=== PATIENT | female | born 1975 | race Caucasian/White ===

== ENCOUNTER 2016-10-28 09:14 | Day surgery (SDC) | payer OTHER ==
[~2016-10-28] VITALS: Ht 177.8 cm; Wt 142.3 kg
[2016-10-28] VITALS (14 sets, daily range): BP systolic 98–150; BP diastolic 50–77; PULSE 83–120; RESP 14–21; O2SAT 90–100
[~2016-10-28 09:14] MED LIST: ATOR20TA PO; CeFAZolin Inj 3 GM in Dextrose 5% Minibag Plus 50 ML IV SCH; CeFAZolin Inj 3 GM in IV Premix 1 EACH IV ONE; GABA-502 PO; GLIM2TAB2 PO; INSU100I13 SUBQ; LISI-571 PO; METF500T4 PO; METO25TA6 PO; MULT-1018 PO; NORT25CA PO; ONDA-54 PO; OXYC1TAB24 PO; TUMERIC PO
[2016-10-28] MEDS ORDERED: Ondansetron 2 mg/mL 2 mL Inj ONE (09:15)
[2016-10-28] MEDS ORDERED: Succinylcholine Chloride 20 mg/mL 5 mL Inj ONE (09:15)
[2016-10-28] MEDS ORDERED: MetoCLOpramide 5 mg/mL 2 mL Inj ONE (09:15)
[2016-10-28] MEDS ORDERED: fentaNYL-PF 50 mCg/mL 2 mL Inj ONE (09:15)
[2016-10-28] MEDS ORDERED: Propofol 10,000 mCg/mL 20 mL Inj ONE (09:15)
[2016-10-28] MEDS: Lactated Ringer's 1,000 ML IV SCH ×2 (09:51→11:14)
[2016-10-28] MEDS ORDERED: IBUP-1827 PO (10:00)
[2016-10-28] MEDS ORDERED: Insulin LISPRO 300 Unit/3 mL Inj ONE (11:03)
[2016-10-28] MEDS ORDERED: Insulin LISPRO 300 Unit/3 mL Inj SUBQ ONE (11:15)
[2016-10-28] MEDS ORDERED: Lactated Ringer's 500 ML IV PRN ×2 (11:35)
[2016-10-28] MEDS ORDERED: Dexamethasone 4 mg/mL Inj IVPUSH PRN ×2 (11:35)
[2016-10-28] MEDS ORDERED: HYDROmorphone 1 mg/mL Inj IVPUSH PRN ×2 (11:35)
[2016-10-28] MEDS ORDERED: Ondansetron 2 mg/mL 2 mL Inj IVPUSH PRN ×2 (11:35)
[2016-10-28] MEDS ORDERED: Phenylephrine 10,000 mCg/mL Inj IVPUSH PRN ×2 (11:35)
[2016-10-28] MEDS ORDERED: fentaNYL-PF 50 mCg/mL 2 mL Inj IVPUSH PRN ×2 (11:35)
[2016-10-28] MEDS ORDERED: MetoCLOpramide 5 mg/mL 2 mL Inj IVPUSH PRN ×2 (11:35)
[2016-10-28] MEDS ORDERED: Lactated Ringer's 1,000 ML IV SCH ×2 (11:35)
[2016-10-28] MEDS ORDERED: EPHEDrine Sulfate 50 mg/mL Inj IVPUSH PRN ×2 (11:35)
[2016-10-28] MEDS ORDERED: Bupivacaine-MPF 0.5% W/EPI 30 mL Inj INFILTRATE ONE (11:51)
[2016-10-28] MEDS ORDERED: HepLOK Flush 100 unit/mL 5 mL Inj IVFLUSH ONE (11:52)
[2016-10-28] MEDS ORDERED: HYDROcodone-APAP 5-325 mg Tablet PO PRN (12:15)
--- NOTE | 2016-10-28 12:17 | PCM.DISURG ---
Surgical Discharge Instruction Date of Service Oct 28, 2016 Dates of Hospitalization Date of Hospital Admission Providers Admitting Physician: Primary Care Physician: Neil Muniz Attending Physician: Jabari Manuel MD Discharge Diagnosis Discharge Diagnosis Right breast cancer Diet Discharge Diet: No restrictions Activity Discharge Activity-General: No restrictions Dressing and Incisional Care Dressing Care: Allow Steri Stripes to fall off, Remove outer dressing after 24 hrs Hygiene: May shower after (24 hours) Follow Up Plan Follow Up Plan With Dr. Jay as directed Call your provider for: Fever (over 101.5), Discharge @ incision, pus discharge Jabari Manuel MD Oct 28, 2016 12:17
--- NOTE | 2016-10-28 12:23 | PCM.SURGOP ---
Surgical Operative Report Date of Service: Oct 28, 2016 Pre Operative Diagnosis Metastatic right breast cancer Post Operative Diagnosis Same Procedure: Tunneled left subclavian central venous catheter with power port, intraoperative fluoroscopy with interpretation Surgeon and Supervisor Sunglasses: Surgeon: Jabari Manuel MD Assistants: Kentrell Valiente MS3 Indication for Procedure 41-year-old woman who was diagnosed with locally advanced right breast cancer with bulky axillary lymphadenopathy last year. She was treated with bilateral mastectomy and right axillary lymph node dissection, adjuvant chemotherapy, adjuvant chest wall radiation. Her prior Port-A-Cath was removed at the end of her treatment. In follow-up, she was then found to have evidence of recurrent metastatic disease with mediastinal and retroperitoneal lymphadenopathy. Plans were made to treat her with palliative chemotherapy. After discussion of risks and benefits, she agreed to proceed with Port-A-Cath placement. Findings: The catheter tip was positioned at the cavoatrial junction, confirmed with fluoroscopy. Procedure Details After smooth induction of general anesthesia, the patient was positioned in the supine position with only the left arm tucked because of her morbid obesity. She was prepped and draped in wide sterile fashion. A procedural pause was performed according to the SCOAP checklist, and all were found to be in agreement. The patient was placed in Trendelenburg position. The left subclavian vein was accessed with a finder needle. Cannulation of the vein was somewhat difficult because of her prior left subclavian line placement, and her morbid obesity, so it took approximately 5 or 6 passes of the needle. The 0.035 inch wire was passed into the vena cava. It was confirmed with fluoroscopy. Her prior left upper chest wall incision was reopened sharply, and a subcutaneous pocket was created on the left upper chest wall using electrocautery. The port reservoir was secured to the fascia with interrupted 3-0 Vicryl sutures. The catheter was connected to the tunneler, and tunneled under the subcutaneous tissue to the venipuncture site. The introducer sheath and dilator was passed over the wire under fluoroscopic guidance. The catheter was then passed through the tear -away sheath into the vena cava. The sheath was removed. The catheter was then pulled back under fluoroscopic guidance until the tip was positioned at the cavoatrial junction. The catheter was cut to size, and connected to the port reservoir. The port was accessed using a Ashton needle, which aspirated and flushed easily. The port was then flushed with the final heparin flush, consisting of 100 units per mL, a total of 4 mL. A final fluoroscopic image confirmed that the port was in good position with no kinks, and there was no evidence of pneumothorax. The incision was closed with a running 4-0 Monocryl subcuticular stitch. Steri-Strips and sterile dressings were applied. At the end of the case all needle and sponge counts were correct 2. The patient was awakened from anesthesia without difficulty, and taken to the recovery room in satisfactory condition, having tolerated the procedure well. Complications There were no periprocedural complications identified. Surgical Specimen Removed: No Specimen sent to Pathology: Not applicable Anesthetic Plan: GA Grafts, Implants: Implants-See Implant Record Output, Estimated Blood Loss: 10 Blood Administration during pascual: No Drains: None Catheters: None copies to: Caden Jay MD; Neil Muniz Joshua D MD Oct 28, 2016 12:23
--- NOTE | 2016-10-28 12:26 | PCM.HPANE ---
Patient Data Surgeon Admitting Provider: Attending Provider:Jabari Manuel MD Primary Care Physician:Neil Muniz Other Provider:Prosper Corbett Anesthesia Reason for Visit Right Breast Cancer Ht/WT & BMI Height (Feet): 5 Height (Inches): 9 Weight (Kilograms): 142.600 Body Mass Index 46.00 Allergies Coded Allergies: No Known Allergies (Verified , 12/10/15) Past Anesthesia History Anesthesia History: Denies:: Abnormal Airway, Anesthesia Reactions (takes a long time to wake up), Difficult Intubation, Fam Anesthesia Reaction, Malignant Hyperthermia Diabetes History Hx Diabetes?: Yes (last Hgb A1C "awhile ago" cannot recall) Type of Diabetes: Type II Glycemic Control: Insulin & Oral Medication MRSA MRSA: No Medications Hypertension Medication: Yes Home Meds Incl Beta Taya: No Active Scripts oxyCODONE-Acetaminophen 5-325 mg 1 Each Tablet1-2 Tab PO Q6H PRN For Pain #20 TABLET Prov:Leighann Andrea MD 07/19/16 Reported Medications Ibuprofen 600 Mg [id number] Mg PO PRN #60 10/28/16 Metoprolol Tartrate 25 Mg Tkgums19.5 Mg PO BID 30 Days Ref 0 10/16/16 Ondansetron 8 Mg Tablet8 Mg PO BID PRN For Nausea/Vomiting #60 TABLET Ref 1 09/25/16 Insulin Glargine (Lantus U100 Solostar Insulin Pen)100 Unit/1 Ml Insuln.pen42 Unit SUBQ DAILY #2 PENINJ Ref 2 09/25/16 Atorvastatin (Lipitor)20 Mg Lxaxlz75 Mg PO DAILY Ref 0 12/11/15 Multivitamin (Multi Vitamin Daily)1 Each Tablet1 Each PO DAILY 30 Days Ref 0 11/02/15 Nortriptyline 25 Mg Cdnrpom22 Mg PO HS 10/26/15 Glimepiride 2 Mg Tablet2 Mg PO HS Ref 0 10/26/15 Lisinopril 5 Mg Tablet5 Mg PO HS Ref 0 10/26/15 Gabapentin 300 Mg Dgbauea673 Mg PO HS Ref 0 10/12/15 Metformin 500 Mg Tablet1,000 Mg PO BID Ref 0 08/07/15 Discontinued Reported Medications [Tumeric] No Conflict Check Po Ud 12/10/15 History History of ENT Problems?: Yes HEENT History: Denies:: Abnormal Airway Cataracts Difficult Intubation Dysphagia Glaucoma Hearing Problem Sinus Problem TMJ Teeth Condition: Missing Teeth Hx of Heart Problems?: Yes Cardiovascular History: Positive for:: Hypertension Denies:: AICD Atrial Fibrillation Chest Pain Congestive Heart Failure Coronary Artery Disease Edema Heart Murmur Irregular Heartbeat Pacemaker Peripheral Vascular Hx of Respiratory Problem?: No Respiratory History: Positive for:: Cough Denies:: Asthma COPD Emphysema Oxygen Administration Pneumonia Pulmonary Embolism Tuberculosis Use of C-PAP Machine (prior use CPAP- no longer uses, needs new sleep study) Hx Neurologic Problems?: No Neurological History: Denies:: CVA Dementia Dizziness Headaches Multiple Sclerosis Parkinson's Disease Seizures TIA Hx of GI Problems?: Yes Gastrointestinal History: Positive for:: Gall Bladder Disease (removed) Denies:: Diverticulitis Gastrointestinal Bleeding Heartburn Hepatitis Hiatal Hernia Rectal Bleeding Hx of Problems?: No Genitourinary History: Denies:: Kidney Stones Urinary Tract Infection Female Hx: Positive for:: Pelvic Inflammatory (HX TUBO-OVARIAN ABCESS) Problems with Breasts? (right breast ca, bilateral mastectomy-lymphadenopathy current problem) Denies:: Currently Endometriosis Skin History: Denies:: History Skin Disorders? Pressure Ulcers Hx Musculoskeletal Problems?: Yes Musculoskeletal History: Positive for:: Musculoskeletal Trauma (frozen shoulder right) Denies:: Back Injury Degenerative Joint Fibromyalgia Joint Replacement Myasthenia Gravis Osteoarthritis Rheumatoid Arthritis Systemic Lupus Hx of Psycho/Social Problems?: No Psycho Social History: Denies:: Anxiety Bipolar Disorder Hx Depression Suicide Attempt Hx Surgeries?: Yes (IUD REMOVAL,SUZI,HERNIA RPR,EXP LAP-ABCESS,LT BREAST LUMPECTOMY,RT BREAST ) Hx Any Other Health Problems?: Yes Other History: Positive for:: Cancer (RT BREAST) Denies:: Endocrine Disease Hospitalization Thyroid Disease History Blood Transfusions: Positive for:: Accept Blood Products? Blood Transfusions Denies:: Blood Transfuse Reaction Hx Diabetes: Yes (last Hgb A1C "awhile ago" cannot recall) Hx Alcohol Use: NoHx Substance Use: No (past use of oil during chemo- not current ) Smoking Status: Former Smoker Unknown if Ever Smoker Have You Smoked inLast 12 mo: No Stop/Bang P-Blood Pressure: treated: No B- Body Mass Index > 35 kg/m2: Yes A- Age over 50: No N- Neck Large Circumference: Yes G- Gender Male: No Risk Assessment Category Category 1A: Patient has history of documented sleep apnea, and HAS NOT received any narcotic, sedative or anesthesia administration during this stay. Category 1B: Patient has history of documented sleep apnea, and HAS received any narcotic , sedative or anesthesia administration during this stay Category 2: Patient has SUSPECTED Obstructive Sleep Apnea, and HAS received any narcotic , sedative or anesthesia administration during this stay. Category 3: Patient has SUSPECTED Obstructive Sleep Apnea and HAS NOT received narcotic, sedative or anesthesia administration during this stay. Category 4: Outpatient in Procedural Areas with known sleep apnea or who screen positive for High Risk via the STOP/BANG questionnaire. Exam Exam General Appearance: Alert, Oriented X3, Cooperative, No Acute Distress HEENT/AIRWAY: MP 2 Lungs: Clear to Auscultation Heart: Exam Unremarkable Plan Impression Patient chart reviewed, patient interviewed and anesthestic plan with risks, benefits, and alternatives discussed, and informed consent obtained. NPO Status: MN ASA Physical Status: ASA3 Severe Disease (MORBID OBESITY, NOEMI, IDDM, HTN) Anesthetic Plan: GA Bene/Risks/Altern/Consents: Yes HP Complete Prior to Induction: Yes Foreign Gutierrez MD Oct 28, 2016 07:47
--- NOTE | 2016-10-28 12:26 | PCM.ANEP1 ---
Post Anesthesia Phase 1 PACU Phase 1 Assessment Date of Service: Oct 28, 2016 Vital Signs Vital Signs Date Time Temp Pulse Resp B/P Pulse Ox O2 Delivery O2 Flow Rate FiO2 10/28/16 10:55 93 10/28/16 10:02 120 10/28/16 09:53 35.3 117 20 125/60 96 Room Air Anesthetic Administered: GA Level of Alertness: Sleepy, easy to arouse SALAZAR's with Equal Strength: Yes Pain: No Nausea or Vomiting: No Oxygen Delivery: Simple Mask Lungs: Clear to Auscultation Dermatome Level: Full Sensation Foreign Gutierrez MD Oct 28, 2016 12:26
--- NOTE | 2016-10-28 13:11 | DRSVH ---
PROCEDURE: X-RAY CHEST ONE VIEW, PORTABLE ([id number]) INDICATIONS: evaluate for pneumothorax TECHNIQUE: One view of the chest was acquired. COMPARISON: [facility], CT, CT CHEST ABD PELVIS W CON, 10/23/2016, 10:58. FINDINGS: Surgical changes and devices: Left subclavian chest port present tip projected over the lower SVC. B ilateral breast surgical clips. Lungs and pleura: No pleural effusions or pneumothorax. Lungs are clear. Mediastinum: Mediastinal contours appear normal. Heart size is normal. Bones and chest wall: No suspicious bony lesions. Overlying soft tissues appear unremarkable. IMPRESSION: Placement of left subclavian chest port without immediate. Complication. Dictated by: Roland Gomez RRA Interpreted: Mariam Mahajan MD on 10/28/2016 at 13:10 Transcribed by: MARIE on 10/28/2016 at 13:11 Approved by: Mariam Mahajan MD, PhD on 10/28/2016 at 17:04
--- NOTE | 2016-10-28 13:23 | PCM.ANEP2 ---
Post Anesthesia Evaluation ASA/CMS Post Anesthesia VS in Patient's Normal Range?: Yes Resp Stable; Airway Patent?: Yes CV Function & Hydration Stable: Yes Mental Status Recovered?: Yes Pain control Satisfactory?: Yes N/V Control Satisfactory?: Yes Foreign Gutierrez MD Oct 28, 2016 13:23
== END 2016-10-28 23:59 | disposition home or self-care (01) ==
LOC: SAS 09:14
PROVIDERS: ATTEND Student in an Organized Health Care Education/Training Program
DX: C50.911 Malignant neoplasm of unspecified site of right female breast (principal); E11.9 Type 2 diabetes mellitus without complications; I10 Essential (primary) hypertension; E78.5 Hyperlipidemia, unspecified; F41.9 Anxiety disorder, unspecified; E66.9 Obesity, unspecified; Z68.42 Body mass index [BMI] 45.0-49.9, adult; Z87.891 Personal history of nicotine dependence; Z79.4 Long term (current) use of insulin; Z79.84 Long term (current) use of oral hypoglycemic drugs
CPT/HCPCS: 36561; 71010; 77001; C1788; J0330; J0690; J1642; J1815; J2405; J2765; J7120

== ENCOUNTER 2017-01-07 10:22 | Inpatient (IN) | payer OTHER ==
[2017-01-07] VITALS (13 sets, daily range): BP systolic 110–139; BP diastolic 51–75; PULSE 95–110; RESP 15–22; O2SAT 94–97
[~2017-01-07] VITALS: Ht 177.8 cm; Wt 133.4 kg
[~2017-01-07 10:22] MED LIST changes: -CeFAZolin Inj 3 GM in Dextrose 5% Minibag Plus 50 ML IV SCH; -CeFAZolin Inj 3 GM in IV Premix 1 EACH IV ONE; -GLIM2TAB2 PO; +IBUP-1827 PO; -LISI-571 PO; -TUMERIC PO
[2017-01-07] MEDS ORDERED: 0.9% Sodium Chloride 1,000 ML IV ONE (10:33)
--- NOTE | 2017-01-07 10:33 | ED.REPORT ---
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 She has had 3 episodes of vomiting today. Associated symptoms include weakness, nausea, and fatigue. Her last chemotherapy was 2-3 weeks ago and she received a transfusion 1 week ago. She denies hematuria and hematochezia. Nursing Notes Stated Complaint: BLACK VOMIT Chief Complaint: General Complaint Nursing Notes Reviewed: Yes Allergies: Coded Allergies: No Known Allergies (Verified , 01/07/17) Scheduled Atorvastatin Calcium (Atorvastatin Calcium) 10 Mg Tablet 10 MG PO HS Gabapentin (Gabapentin) 300 Mg Capsule 900 MG PO HS Insulin Glargine (Lantus U100 Solostar Insulin Pen) 100 Unit/1 Ml Insuln.pen 42 UNIT SUBQ HS Levothyroxine (Levothyroxine) 75 Mcg Tablet 75 MCG PO QAM Metformin (Metformin) 500 Mg Tablet 1,000 MG PO BID Methadone (Methadone) 5 Mg Tablet 5 MG PO BID Metoprolol Tartrate (Metoprolol Tartrate) 25 Mg Tablet 25 MG PO BID Nortriptyline (Nortriptyline) 25 Mg Capsule 25 MG PO HS Scheduled PRN Ondansetron (Ondansetron) 8 Mg Tablet 8 MG PO BID PRN PRN For Nausea/Vomiting oxyCODONE-Acetaminophen 5-325 mg (oxyCODONE-Acetaminophen 5-325 mg) 1 Each Tablet 1-2 TAB PO Q6H PRN PRN For Pain General Time Seen by MD: 10:33 Chief Complaint Vomiting Hx Obtained From: Patient Arrived By: Walk-in Sudden in Onset?: Yes Onset Occurred: 4 days ago Symptom Duration: Since onset Location: : Abdomen Radiation: : Does not radiate Recent Healthcare: Recent doctor visit Past Medical History Past Medical History Hx Breast cancer s/p chemo Hx Bladder infection Prolapsed uterus Chronic tachycardia T2DM Past Surgical History None reported Smoking History Former Smoker, Unknown if Ever Smoker Ambulatory Status Independent Review of Systems Full Review of Systems Constitutional: Reports: Fatigue, Weakness - generalized GI: Reports: Hematemesis, Nausea, Vomiting, Denies: Hematochezia Female: Denies: Hematuria Complete sys rev & neg: except as marked. Physical Exam Vital Signs Vital Signs Date Time Temp Pulse Resp B/P Pulse Ox O2 Delivery O2 Flow Rate FiO2 01/07/17 14:00 101 20 120/57 95 Room Air 01/07/17 13:00 97 16 116/51 95 Room Air 01/07/17 12:00 95 15 139/54 95 Room Air 01/07/17 10:25 35.5 96 16 110/71 97 Initial VS: Reviewed Head / Eyes: Atraumatic, Normocephalic, PERRL ENT: Mucous membranes moist Neck: Supple Cardiovascular: Regular rate & rhythm, Heart sounds normal Abdomen / GI: Soft, Non-tender, No guarding, No rebound, No distention Extremities: Vascular intact, Neuro intact, No swelling, No tenderness Neurologic: Alert, Oriented Psychiatric: Mood/affect normal, Behavior normal General/Constitutional: Awake, Alert, Cooperative, Not toxic appearing Appearance / Presentation: Positive: Pale Lower Extremity / Pelvis / MS: Full range of motion trace edema Interpretation & Diagnostics Lab Results Interpretation Test 01/07/17 11:30 Prothrombin Time 12.0sec (8.1-12.5) Prothromb Time International Ratio 1.12ratio Lactic Acid Level 1.6mmol/L (0.4-2.0) Magnesium Level 1.6mg/dL (1.6-2.6) Procalcitonin 1.03ng/mL (0.00-0.08) ECG Interpretation Time: 10:57 Interpreted by: ED physician Rhythm / Conduction: Tachycardia (100) X-Ray Chest Interpretation Chest Xray Interpretation: IMPRESSION: 1. Bibasilar airspace disease (right slightly greater than left) is most suspicious for developing pneumonia. 2. No large effusion. 3. Unchanged Port-A-Cath central line. Dictated by: Won Thornton M.D. on 01/07/2017 at 10:28 Approved by: Won Thornton M.D. on 01/07/2017 at 10:31 View: Portable Interpretation / Wet Read by: Interpret - Radiologist Re-Eval/Medical Decision Time of Eval: 12:53 Patient Status: Mild relief Re-Evaluation/Progress Note: Pt rechecked. Her nausea has dissipated and she has not vomitted again. Informed pt of plan to start on antibiotics and admit to the hospital. Pt understands and agrees with plan. All questions addressed. Consultation #1: Referral / Consult Name: Zackary Braga MD Consulted With: Hospitalist Call Returned at: 13:13 Early Learning Teacher: Agrees with eval, Agrees with plan Note: Case discussed. Dr. Braga accepts admit. Consultation #2: Referral / Consult Name: Marisol Kulwant Fitch DO Call Returned at: 13:17 Note: Dr. Damon, oncology, recommends that patient be transfered to . Possibility she may have developed acute leukemia. Later, he calls back after having looked at the peripheral smear and thinks that there is less evidence now of acute leukemia and believes that since has no inpatient beds, he can reasonably keep the patient here and proceed with workup while patient hospitalized at our facility. Consultation #3: Referral / Consult Name: Willie Walsh MD Call Returned at: 14:17 Note: Case discussed. Counseled Regarding: Diagnosis, Lab results, Need for admission Discharge & Departure Primary Impression: Breast cancer, right Breast location: unspecified site of breast Patient gender: female Qualified Code: C50.911 - Malignant neoplasm of unspecified site of right female breast Additional Impressions: Upper GI bleed Severe anemia Leukocytosis Leukocytosis type: unspecified Qualified Code: D72.829 - Elevated white blood cell count, unspecified Disposition: ADMITTED TO HOSPITAL Discharge Condition All VS Reviewed: Yes Condition: Stable Referrals: NOPCP (PCP) Scribe Attestation Portion of this note were transcribed by Oriana Rodriguez. I, Dr. Isaacs, personally performed the history, physical exam, and medical decision-making: I reviewed and confirmed the accuracy for the information in the transcribed note. Signed by: leann Song, 01/27/17 Girish Brewster MD Jan 07, 2017 10:33 Oriana Rodriguez Jan 07, 2017 10:42
[2017-01-07] MEDS ORDERED: Pantoprazole Inj 80 MG, Pharmacy To Mix 1 EA in 0.9% Sodium Chloride 80 ML IV ONE ×2 (10:55)
--- NOTE | 2017-01-07 11:32 | DRSVH ---
PROCEDURE: X-RAY CHEST ONE VIEW, PORTABLE ([id number]) INDICATIONS: sepsis TECHNIQUE: One view of the chest was acquired. COMPARISON: [facility], CR, XR CHEST 1VW (PORTABLE), 10/28/2016, 12:14. FINDINGS: Surgical changes and devices: There is a left-sided Port-A-Cath central line identified with the tip overlying the low superior vena cava, not significantly changed. Surgical clips are seen overlying t he right axilla and the left chest. Lungs and pleura: There are low lung volumes. Mild bibasilar airspace disease is identified, which i s less prominent on the current study compared to 10/28/16. The degree of airspace disease is slightl y more prominent at the right lung base. There is mild elevation of the right diaphragm. No effusio n or pneumothorax is evident. Mediastinum: Mediastinal contours appear normal. Heart size is normal. Bones and chest wall: No suspicious bony lesions. Overlying soft tissues appear unremarkable. IMPRESSION: 1. Bibasilar airspace disease (right slightly greater than left) is most suspicious for developing p neumonia. 2. No large effusion. 3. Unchanged Port-A-Cath central line. Dictated by: Won Thornton M.D. on 01/07/2017 at 10:28 Approved by: Won Thornton M.D. on 01/07/2017 at 10:31
[2017-01-07 12:02] LABS: INR 1.12 ratio
[2017-01-07 12:16] LABS: Magnesium 1.6 mg/dL (1.6-2.6)
[2017-01-07] MEDS ORDERED: Doxycycline Inj 100 MG in Dextrose 5% 100 ML IV ONE (13:15)
[2017-01-07] MEDS ORDERED: Piperacillin-Tazo 3.375 Gm Inj 3.375 GM in Dextrose 5% Minibag Plus 50 ML IV ONE (13:15)
[2017-01-07] MEDS ORDERED: Tobramycin per Pharmacist XX ONE (13:15)
[2017-01-07] MEDS ORDERED: Vancomycin Dose per Pharmacist XX ONE (13:15)
[2017-01-07] MEDS ORDERED: Vancomycin Inj 2,250 MG in 0.9% Sodium Chloride 500 ML IV ONE (14:05)
[2017-01-07] MEDS ORDERED: METH5TAB3 PO (14:19)
[2017-01-07] MEDS ORDERED: ATOR10TA66 PO (14:19)
[2017-01-07] MEDS ORDERED: LEVO75TA4 PO (14:19)
[2017-01-07] MEDS ORDERED: Pantoprazole Inj 80 MG in 0.9% Sodium Chloride 80 ML IV SCH (15:25)
--- NOTE | 2017-01-07 15:42 | PCM.CHPMED ---
Subjective Date of Service: Jan 07, 2017 Primary Physician: Admitting Physician: Zackary Braga MD Primary Care Physician: Francisco Javier Attending Physician: Zackary Braga MD Admit Status: From the Emergency Department, Non-Telemetry Chief Complaint: Chief Complaint: Black vomit, nausea History of Present Illness: Camelia Barahona is an unfortunate 41 year-old female with metastatic triple negative breast cancer with diffuse osseous metastasis, persistent severe anemia , thrombocytopenia, and insulin-using diabetes type 2 who was [facility] due to hematemesis and vomiting increasing in severity onset 4 days ago. Today, patient had a follow-up lab draw at the oncology office and was found to have marked leukocytosis of 65.7, hemoglobin 6.6, and platelet count at 22. Her WBC on 12/31 was normal at 4.8. Patient admits to generalized weakness, malaise, dizziness, poor appetite, nausea, and vomiting. She reports "black vomits" that has been ongoing for 4 days and had 3 episodes of vomiting today. Patient states that she has been using Zofran but it no longer works for her. She denies hematuria, hematochezia, melena, abdominal pain, CP, or SOB. She takes Methadone and Percocet on a regular basis and it seems to control her cancer-related pain really well. She denies any fever or chills, but admits that she has been feeling sweaty and clammy. She also denies cough, dysuria, constipation, or diarrhea. Last BM was this morning and it was normal. Her last chemotherapy was 2-3 weeks ago and she received 2 units of PRBC 1 week ago when her hemoglobin was 5.9. GI service was consulted due to concern of upper GI bleed. Of note, in 10/2016, a bone marrow biopsy was attempted to differentiate between chemotherapy-induced myelosuppression versus metastatic carcinoma to the bone marrow but the procedure was unsuccessful. Even with holding the chemotherapy, her platelet count did not improve and has progressively decreased. Thus, it was thought that her thrombocytopenia is likely due to her metastatic breast cancer to the bone. Otherwise, patient denies any history of GI bleed. She has never had neither upper or lower endoscopy in the past. No family history of cancer other than the patient. Review of Systems: Constitutional: Reports: Malaise, Sweats, Weakness, Denies: Chills, Fever Neck: Denies: Mass, Pain, Swelling Cardiovascular: Denies: Chest Pain, Edema, Irregular Heart Rate, Palpitations, Rapid Heart Rate, SOB on Exertion Respiratory: Denies: Cough, SOB with Exertion, Shortness of Breath, Sputum, Wheezing Gastrointestinal: Reports: Change in Appetite, Nausea, Other (Hematemesis), Vomiting, Denies: Abdominal Pain, Black tarry stools, Blood in stool (red), Constipation, Diarrhea Genitourinary: Reports: No burning or pain with urination, Denies: Change in Frequency, Decrease Urinary Output, Dysuria, Hematuria Skin: Reports: Bruising, Denies: Blisters, Dry or Flakiness, Itching, Lesions, Rash Neurological: Reports: Dizziness, Denies: Change in Speech, Confusion, Localized Weakness, Numbness, Somnolence Hematologic: Reports: Bruising PMH Past Medical History Metastatic triple negative breast cancer s/p chemo Hx Bladder infection Prolapsed uterus Chronic tachycardia T2DM Surgical History - Tunneled left subclavian central venous catheter with power port in 10/2016 - Right skin sparing modified radical mastectomy, left skin sparing mastectomy with left axillary lymph node biopsy in 12/2015 - Left benign lumpectomy in 1992. - Cholecystectomy. - Excision of infected ovarian cyst in 2007. - Surgery on the left leg and ankle for a fracture and dislocated joint in 2005. Allergies: Coded Allergies: No Known Allergies (Verified , 01/07/17) Family History Family History No established family history of cancer, but there is extensive family history of coronary artery disease, especially on her dad's side. Her paternal grandfather, father, several paternal uncles and a paternal aunt all primarily of heart disease under 60 years of age. Social History Hx Alcohol Use: NoHx Substance Use: No (past use of oil during chemo- not current )Hx Tobacco Use: Yes Smoking Status: Former Smoker (15 pack years, quit 7 years ago) Living Arrangement: with Family (with daughter) Exam Vital Signs Vital Sign - Last Date Time Temp Pulse Resp B/P Pulse Ox O2 Delivery O2 Flow Rate FiO2 01/07/17 15:01 109 01/07/17 14:53 131/57 01/07/17 14:00 20 95 Room Air 01/07/17 10:25 35.5 Additional Information: General: Awake and Alert x3, Morbidly obese, Pale, Chronically-ill appearance, Cooperative, Not toxic appearing HEENT: Atraumatic, Normocephalic, PERRL, pale conjunctiva, moist oral mucosa with no thrush visualized Neck: Supple, trachea midline, no cervical lymphadenopathy or thyromegaly. Chemo port on the left chest with no erythema, warmth, or discharge. No pain on palpation. Cardiovascular: Regular rate & rhythm, Heart sounds normal. Respiratory: decreased breath sound at the bases. No wheezes/rales/rhonchi appreciate. No cough. No accessory muscle use. Abdomen: Obese, Soft, Non-distended, Non-tender, No guarding, No rebound, No distention Extremities: Trace edema in the lower extremities, No tenderness, No cyanosis or clubbing. Neurologic: Neurologically intact with no focal deficits, normal speech, 5/5 motor strength. Sensation to light touch grossly intact. Psychiatric: Mood/affect normal, Behavior normal. Skin. Mild ecchymosis around the IV assess. No petechiae or rashes noted. Lab and Diagnostics X-Rays, CTs and MRIs Portable CXR IMPRESSION: 1. Bibasilar airspace disease (right slightly greater than left) is most suspicious for developing pneumonia. 2. No large effusion. 3. Unchanged Port-A-Cath central line. Dictated by: Won Thornton M.D. on 01/07/2017 at 10:28 Approved by: Won Thornton M.D. on 01/07/2017 at 10:31 Assessment & Plan Assessment 41 year-old female with metastatic triple negative breast cancer with diffuse osseous metastasis, persistent severe anemia, thrombocytopenia, and insulin- using diabetes type 2 who was sent to the ED from the [facility] due to hematemesis and vomiting increasing in severity onset 4 days ago. Patient was admitted for infection workup and possible GI bleed. 1. Acute on chronic normocytic anemia, present on admission, active. - Suspect to be due to upper GI bleed given severe thrombocytepenia and ongoing emesis. - Both the anemia and thrombocytopenia are likely secondary to bone marrow suppression from the extensive ossesous metastasis. - EGD is discussed with the patient along with the usual potential risks. The patient wishes to proceed. Will plan for EGD tomorrow afternoon. - Start PPI drip. - Clear liquid diet until noon tomorrow 01/08. - 3 units of PRBC ordered and will start transfusion. - Monitor serial H/H Q6H. - Depending the patient's response after the blood transfusion, might consider platelet transfusion if her platelet remains low. - Consider consulting the oncology team. - Pain and antiemetic medications per hospitalist team. Other medical problems will be managed by the hospitalist team. Thank you for this consultation. Please do not hesitate to contact us if you have any questions. Problems: Pain Evaluation: Adequate Pain Control GI Prophylaxis: Proton Pump Inhibitor VTE Prophylaxis: SCDs Resuscitation Status: CPR: Attempt Resuscitation Attending Statement Patient seen and examined. Agree with assessment and plan as described by Dr Rosenberg. There is concern in regards infection with respect to the marked leukocytosis when last month white counts were essentially normal. Patient received a blood transfusion last week. Blood culture results are pending. She really has no focal symptoms to speak of - no ST, [place], cough, sputum, dysuria , rash, joint pain, dysphagia, odynophagia, ab pain. She has felt nauseated in last 4 days with vomiting. No overt bleeding. Coffee ground emesis. No report of melena. I suspect the coffee ground emesis to be reaction to systemic process rather than the primary source for symptoms/profound anemia. Would defer to hematology/oncology and the primary service w/r/t infectious disease workup. Wonder if MRI imaging of lower back would be of value in that she has had a 5/10 pain in her lower back for about a month now - ?? osteomyelitis. Will discuss case with hematology b/c if primary source for symptoms is identified, not sure we really need to pursue upper endoscopy in the face of thrombocytopenia. Megan Rosenberg DO Jan 07, 2017 15:42 Willie Walsh MD Jan 07, 2017 22:53
[2017-01-07] MEDS: oxyCODONE-Acetamin 5-325 mg Tablet PO PRN (16:25)
[2017-01-07] MEDS ORDERED: Polyethylene Glycol (PEG) 17 Gm Powder PO PRN (17:25)
[2017-01-07] MEDS ORDERED: Alum-Mag Hydrox-Simeth 30 mL Suspension PO PRN (17:25)
[2017-01-07] MEDS ORDERED: Ondansetron 2 mg/mL 2 mL Inj IVPUSH PRN (17:25)
[2017-01-07 18:09] LABS: Platelet Count 22 bil/L (150-400)
[2017-01-07 18:10] LABS: BASOPHILS % (AUTO) 1 % (0-3); EOSINOPHILS % (AUTO) 0 % (0-5); MONOCYTES % (AUTO) 10 % (4-12); Mean Corpuscular Volume 89.5 fL (81-100); NEUTROPHILS % (AUTO) 50 % (40-74)
[2017-01-07] MEDS ORDERED: oxyCODONE-Acetamin 5-325 mg Tablet PO PRN (18:55)
--- NOTE | 2017-01-07 19:22 | PCM.HPMED ---
Subjective Date of Service Jan 07, 2017 Primary Provider: Admitting Physician: Zackary Braga MD Primary Care Physician: Nopsujatha Attending Physician: Zackary Braga MD Admit Status: From the Emergency Department Chief Complaint: Ground coffee emesis and nausea History of Present Illness: Camelia Barahona is a very pleasant 41 year-old female with metastatic triple negative breast cancer with diffuse osseous metastasis, persistent severe anemia , thrombocytopenia, and insulin-using diabetes type 2 who was sent to the Emergency Department from the [facility] due to hematemesis and vomiting for about 4 days. Patient reports seeing an oncologist every week on Wednesdays. Today, patient had a follow-up lab draw at the oncology office and was found to have marked leukocytosis of 65.7, hemoglobin 6.6, and platelet count at 22. Her white blood count on 12/31 was normal at 4.8. Patient reports having been feeling sick for about the last 2-3 weeks. She admits to generalized weakness, malaise, dizziness, poor appetite, nausea, vomiting,weight loss and low back pain. She reports coffee-ground emesis that has been ongoing for 4 days. She has had at least 2-3 episodes of vomiting today. Patient states that with her current chemotherapy she feels nauseated on a daily basis. She has been using Zofran but it no longer works for her. She denies hematuria, hematochezia, melena, abdominal pain, chest pain, shortness of breath, cough, dysuria, constipation, diarrhea. Her bowel movements are regular and last one was this morning and it was normal. She takes methadone and percocet on a regular basis and it seems to control her cancer-related pain really well. She denies any fever or chills, but admits that she has been feeling sweaty and clammy. Her last chemotherapy was 2-3 weeks ago and she received 2 units of packed red blood cells one week ago when her hemoglobin was 5.9. Patient denies any history of gastrointestinal bleed in the past. She has never had either upper or lower endoscopy. Earlier this year a bone marrow biopsy was attempted to differentiate between chemotherapy-induced myelosuppression versus metastatic carcinoma to the bone marrow but the procedure was unsuccessful. Even with holding the chemotherapy, her platelet count did not improve and has progressively decreased. Thus, it was thought that her thrombocytopenia is likely due to her metastatic breast cancer to the bone. She is disabled and lives with her daughter. 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 Her oncologist is Dr. Jay. Upon arrival to the emergency room patient has been examined and started on intravenous normal saline fluids and intravenous antibiotics: vancomycin, zosyn , doxycycline, and tobramycin. Gastroenterology was consulted due to concern of upper gastrointestinal bleed. Review of Systems: A comprehensive review of systems was conducted with the patient and found to be negative except as above in the History of Present Illness. Allergies Coded Allergies: No Known Allergies (Verified , 01/07/17) Home Medications Atorvastatin, 10 mg daily Gabapentin, 900 mg daily at bedtime Insulin Glargine (Lantus), 100 unit/1 ml, 42 units subcutaneous before bedtime Levothyroxine, 75 mcg daily in the morning Metformin, 1000 mg twice a day Methadone, 5 mg daily twice a day Metoprolol tartrate, 25 mg twice a day daily Nortriptyline, 25 mg daily before bedtime Ondansetron, 8 mg twice a day Oxycodone-acetaminophen, 5-325, one to two tabs every 6 hours as needed PMH Metastatic triple negative breast cancer s/p chemo Hx Bladder infection Prolapsed uterus Chronic tachycardia T2DM Surgical History - Tunneled left subclavian central venous catheter with power port in 10/2016 - Right skin sparing modified radical mastectomy, left skin sparing mastectomy with left axillary lymph node biopsy in 12/2015 - Left benign lumpectomy in 1992. - Cholecystectomy. - Excision of infected ovarian cyst in 2007. - Surgery on the left leg and ankle for a fracture and dislocated joint in 2005. Family History Coronary artery disease on her father's side. Social History Hx Alcohol Use: No Hx Substance Use: No (past use of oil during chemo- not current ) Hx Tobacco Use: Yes Smoking Status: Former Smoker (15 pack years, quit 7 years ago) Living Arrangement: with Family (with daughter) Exam Vital Signs Vital Sign - Last Date Time Temp Pulse Resp B/P Pulse Ox O2 Delivery O2 Flow Rate FiO2 01/07/17 15:26 101 20 129/75 97 Room Air 01/07/17 10:25 35.5 Exam General: Alert and oriented x3, morbidly obese pleasant female, chronically- ill appearance, in no acute distress HEENT: Atraumatic, normocephalic, pale conjunctiva, moist oral mucosa Neck: Supple, no cervical lymphadenopathy or thyromegaly, fuul range of motion. Chemo port on the left chest with no erythema, warmth, or discharge. Cardiovascular: Regular rate and rhythm, no murmur appreciated. Respiratory: Clear to auscultation bilaterally, decreased breath sound at the bases. No wheezes, rales or rhonchi. Abdomen: Obese, soft, non-distended, non-tender, no guarding, no rebound, no distention Extremities: Intravenous access, left arm. Trace edema in the lower extremities, no cyanosis or clubbing. Neurologic: Neurologically intact with no focal deficits. Psychiatric: Normal mood and affect. Skin: Mild ecchymosis around the IV assess. No rashes. Lab and Diagnostics Labs Hemoglobin 5.6, hematocrit 17.9, PT 12.0, INR 1.12, magnesium 1.6, lactic acid 1.6, pro calcitonin 1.03 CBC and CMP are pending at this moment Microbiology Blood cultures are pending at this moment X-Rays, CTs and MRIs Portable CXR IMPRESSION: 1. Bibasilar airspace disease (right slightly greater than left) is most suspicious for developing pneumonia. 2. No large effusion. 3. Unchanged Port-A-Cath central line. Dictated and approved by: Won Thornton M.D. on 01/07/2017 at 10:28 Assessment & Plan Camelia Barahona is a 41 year-old female with metastatic triple negative breast cancer with diffuse osseous metastasis, persistent severe anemia, thrombocytopenia, and insulin-using diabetes type 2 who was sent to the Emergency Department from the Cancer [facility] due to hematemesis and vomiting for 4 days. Patient was admitted for infection workup and possible gastrointestinal bleed. 1. Acute on chronic normocytic anemia, present on admission. Active. - Suspect to be due to upper gastrointestinal bleed given severe thrombocytepenia and ongoing emesis. - Both the anemia and thrombocytopenia are likely secondary to bone marrow suppression from the extensive ossesous metastasis. - Gastroenterology consulted and they are planning on doing upper endoscopy tomorrow afternoon. - Continue proton pump inhibitor drip. - Continue clear liquid diet until noon tomorrow 01/08. - 3 units of packed red blood cells ordered by gastroenterology service and are being transfused. - Monitor serial hemoglobin and hematocrit every 6 hours. - Depending the patient's response after the blood transfusion, might consider platelet transfusion if her platelets remain low. 2. Acute blood loss anemia, present on admission. Active. - Suspect to be due to upper gastrointestinal bleed given severe thrombocytepenia and ongoing emesis. - 3 units of packed red blood cells ordered by gastroenterology service and are being transfused. - Monitor serial hemoglobin and hematocrit every 6 hours. - Upper endoscopy tomorrow afternoon per gastroenterology. Complete blood count is pending. 3. Leukemoid reaction, present on admission. Active. - Today, patient had a follow-up lab draw at the oncology office and was found to have marked leukocytosis of 65.7. Her white blood count on 12/31 was normal at 4.8. - Etiology is most likely patient's malignancy and/or severe hemorrhage. Differential diagnosis also would include severe infection, intoxication, acute hemolysis. - Consider consulting oncology for exclusion work up of chronic myelogenous leukemia and chronic neutrophilic leukemia. - Complete blood count with differential percent and platelet is pending - Blood cultures are pending 4. Diabetes mellitus type II, insulin-dependent, present on admission. Active. -Patient is on metformin, 1000 mg by mouth twice a day and Lantus, 42 units subcutaneous before bedtime daily. -Discontinue metformin and start nutritional and correctional medium dose insulin lispro. -Monitor labs. 5. Morbid obesity, present on admission. Active. - Patient is morbidly obese with body mass index of 42.6 kg/m2. - Patient is on clear liquids currently in preparation for upper endoscopy tomorrow. We will start consistent carb diet tomorrow afternoon. - Recommend folder gluer operator consult. 6. Drug dependence, present on admission. Active. - Patient with active breast cancer with diffuse osseous metastasis. - Patient is on chronic daily use of methadone, 5 mg by mouth twice a day, and oxycodone- acetaminophen, 5-325 mg 1-2 tablet every 6 hours by mouth as needed for back pain. - We will continue her home dose of the above-mentioned medications. Pain Evaluation: Adequate Pain Control GI Prophylaxis: Proton Pump Inhibitor VTE Prophylaxis: SCDs Resuscitation Status: CPR: Attempt Resuscitation copies to: Caden Jay MD Pain Evaluation: Adequate Pain Control Attending Statement The patient was seen and examined together with Dr. Jerry on 01/07/2017 and I agree with the history, exam and plan as outlined in the note above. . copies to: Caden Jay MD, Oksana S DO Jan 07, 2017 17:03 Zackary Braga MD Jan 09, 2017 18:43
[2017-01-07] MEDS ORDERED: Glucose 40% Oral Gel 15 Gm Tube PO PRN (19:30)
[2017-01-07] MEDS: 0.9% Sodium Chloride 250 ML IV SCH (20:35)
[2017-01-07] MEDS: Insulin LISPRO 300 Unit/3 mL Inj SUBQ SCH (22:00)
[2017-01-08] VITALS (19 sets, daily range): BP systolic 120–172; BP diastolic 48–79; PULSE 84–103; RESP 15–20; O2SAT 95–99
[2017-01-08] MEDS: Pantoprazole Inj 80 MG in 0.9% Sodium Chloride 80 ML IV SCH ×4 (01:50→22:10)
[2017-01-08] MEDS: oxyCODONE-Acetamin 5-325 mg Tablet PO PRN ×2 (03:21→16:53)
[2017-01-08] MEDS: Insulin LISPRO 300 Unit/3 mL Inj SUBQ SCH ×4 (08:51→22:20)
[2017-01-08] MEDS: 0.9% Sodium Chloride 250 ML IV SCH (08:52)
[2017-01-08 10:04] LABS: Mean Corpuscular Hemoglobin 28.8 pg (27.0-35.0); Mean Corpuscular Volume 88.2 fL (81-100)
[2017-01-08 10:28] LABS: Platelet Count 34 bil/L (150-400)
[2017-01-08 10:45] LABS: Mean Corpuscular Hemoglobin 28.7 pg (27.0-35.0); Mean Corpuscular Volume 86.1 fL (81-100)
[2017-01-08 10:48] LABS: BASOPHILS % (AUTO) 0 % (0-3); EOSINOPHILS % (AUTO) 1 % (0-5); MONOCYTES % (AUTO) 7 % (4-12); NEUTROPHILS % (AUTO) 56 % (40-74)
[2017-01-08 10:54] LABS: BASOPHILS % (AUTO) 0 % (0-3); EOSINOPHILS % (AUTO) 1 % (0-5); MONOCYTES % (AUTO) 7 % (4-12); NEUTROPHILS % (AUTO) 56 % (40-74); Platelet Count 35 bil/L (150-400)
[2017-01-08] MEDS ORDERED: Heparin 1,000 Units/mL 2 mL Inj INJ SCH ×2 (11:00→13:00)
[2017-01-08] MEDS ORDERED: fentaNYL-PF 50 mCg/mL 2 mL Inj ONE (12:37)
[2017-01-08] MEDS ORDERED: Propofol 10,000 mCg/mL 20 mL Inj ONE (12:37)
--- NOTE | 2017-01-08 14:01 | PCM.HPANE ---
Patient Data Date of Service: Jan 08, 2017 Surgeon Admitting Provider:Zackary Braga MD Attending Provider:Zackary Braga MD Primary Care Physician:Nopcp Other Provider: Reason for Visit Upper Gi Bleed, Severe Leukocytosis Ht/WT & BMI Height (Feet): 5 Height (Inches): 10.00 Weight (Kilograms): 135.000 Body Mass Index 42.51 Allergies Coded Allergies: No Known Allergies (Verified , 01/07/17) Past Anesthesia History Anesthesia History: Denies:: Abnormal Airway, Anesthesia Reactions (takes a long time to wake up), Difficult Intubation, Fam Anesthesia Reaction, Malignant Hyperthermia Diabetes History Hx Diabetes?: Yes Type of Diabetes: Type II Glycemic Control: Insulin & Oral Medication Current Bedside Blood Glucose: 199 MRSA MRSA: No Medications Hypertension Medication: Yes Home Meds Incl Beta Taya: No Previous Beta Taya Dose >24: Dose Not Given, Contraindicated Active Scripts oxyCODONE-Acetaminophen 5-325 mg 1 Each Tablet1-2 Tab PO Q6H PRN For Pain #20 TABLET Prov:Leighann Andrea MD 07/19/16 Reported Medications Levothyroxine 75 Mcg [id number] Mcg PO QAM 01/07/17 Methadone 5 Mg Tablet5 Mg PO BID 01/07/17 Atorvastatin Calcium 10 Mg [id number] Mg PO HS #30 01/07/17 Metoprolol Tartrate 25 Mg [id number] Mg PO BID 10/16/16 Ondansetron 8 Mg Tablet8 Mg PO BID PRN For Nausea/Vomiting #60 TABLET Ref 1 09/25/16 Insulin Glargine (Lantus U100 Solostar Insulin Pen)100 Unit/1 Ml Insuln.pen42 Unit SUBQ HS #2 PENINJ Ref 2 09/25/16 Nortriptyline 25 Mg Boplbiu73 Mg PO HS 10/26/15 Gabapentin 300 Mg Pogitmq637 Mg PO HS Ref 0 10/12/15 Metformin 500 Mg Tablet1,000 Mg PO BID Ref 0 08/07/15 Discontinued Reported Medications Ibuprofen 600 Mg Firurb107 Mg PO PRN #60 10/28/16 Atorvastatin (Lipitor)20 Mg Picelv75 Mg PO DAILY Ref 0 12/11/15 Multivitamin (Multi Vitamin Daily)1 Each Tablet1 Each PO DAILY 30 Days Ref 0 11/02/15 History History of ENT Problems?: No HEENT History: Denies:: Abnormal Airway Cataracts Difficult Intubation Dysphagia Glaucoma Hearing Problem Sinus Problem TMJ Hx of Heart Problems?: Yes Cardiovascular History: Positive for:: Hypertension Irregular Heartbeat (hx chronic tachycardia) Denies:: AICD Atrial Fibrillation Chest Pain Congestive Heart Failure Edema Heart Murmur Pacemaker Hx of Respiratory Problem?: No Respiratory History: Positive for:: Cough Denies:: Asthma COPD Emphysema Oxygen Administration Pneumonia Pulmonary Embolism Tuberculosis Use of C-PAP Machine (prior use CPAP- no longer uses, needs new sleep study) Hx Neurologic Problems?: No Neurological History: Denies:: CVA Dementia Dizziness Headaches Multiple Sclerosis Parkinson's Disease Seizures Hx of GI Problems?: Yes Gastrointestinal History: Positive for:: Gastrointestinal Bleeding (current) Denies:: Diverticulitis Heartburn Hepatitis Hiatal Hernia Rectal Bleeding Hx of Problems?: Yes Genitourinary History: Positive for:: Urinary Tract Infection (bladder infections) Denies:: HX of Hemodialysis Kidney Stones HX of Peritoneal Dialysis: No Female Hx: Positive for:: Pelvic Inflammatory (HX TUBO-OVARIAN ABCESS) Problems with Breasts? (right breast ca, bilateral mastectomy-lymphadenopathy current problem) Denies:: Currently Endometriosis Skin History: Denies:: History Skin Disorders? Pressure Ulcers Hx Musculoskeletal Problems?: Yes Musculoskeletal History: Positive for:: Musculoskeletal Trauma (frozen shoulder right) Denies:: Back Injury Degenerative Joint Joint Replacement Systemic Lupus Hx of Psycho/Social Problems?: No Psycho Social History: Denies:: Anxiety Bipolar Disorder Hx Depression Suicide Attempt Hx Surgeries?: Yes (IUD REMOVAL,SUZI,HERNIA RPR,EXP LAP-ABCESS,LT BREAST LUMPECTOMY,RT BREAST ) Hx Any Other Health Problems?: Yes Other History: Positive for:: Cancer (RT BREAST) Denies:: Endocrine Disease Hospitalization Thyroid Disease History Blood Transfusions: Positive for:: Accept Blood Products? Blood Transfusions Denies:: Blood Transfuse Reaction Hx Diabetes: YesBedside Blood Glucose: 199 Hx Alcohol Use: NoHx Substance Use: No (past use of oil during chemo- not current ) Smoking Status: Former Smoker (15 pack years, quit 7 years ago) Have You Smoked inLast 12 mo: No Stop/Bang Treated for Sleep Apnea?: No Do You Have a CPAP Machine?: No S-Snoring: Do You Snore Loudly: No T-Tired: feel tired, fatigued: No O-Obsered: Observed not breath: No P-Blood Pressure: treated: Yes B- Body Mass Index > 35 kg/m2: Yes A- Age over 50: No N- Neck Large Circumference: Yes G- Gender Male: No NOEMI Total Score: 4 NOEMI Risk Assessment: High Risk, =/>3 Yes Risk Assessment Category Category 1A: Patient has history of documented sleep apnea, and HAS NOT received any narcotic, sedative or anesthesia administration during this stay. Category 1B: Patient has history of documented sleep apnea, and HAS received any narcotic , sedative or anesthesia administration during this stay Category 2: Patient has SUSPECTED Obstructive Sleep Apnea, and HAS received any narcotic , sedative or anesthesia administration during this stay. Category 3: Patient has SUSPECTED Obstructive Sleep Apnea and HAS NOT received narcotic, sedative or anesthesia administration during this stay. Category 4: Outpatient in Procedural Areas with known sleep apnea or who screen positive for High Risk via the STOP/BANG questionnaire. Exam Exam Vital Signs Vital Signs Date Time Temp Pulse Resp B/P Pulse Ox O2 Delivery O2 Flow Rate FiO2 01/08/17 11:46 36.9 84 16 142/79 95 Room Air 01/08/17 08:03 37.1 95 16 133/72 95 Room Air 01/08/17 08:00 92 General Appearance: Mild Distress HEENT/AIRWAY: MP 2 Lungs: Diminished Heart: Exam Unremarkable Meds/Labs/Diagnostics Admission Meds Current Medications Vancomycin HCl 2250 mg/Sodium Chloride 500 ml @ 250 mls/hr ONCE ONCE IV Last administered on 01/07/17 15:41; Start 01/07/17 at 14:05; Stop 01/07/17 at 16:04; Status DC Sodium Chloride 250 ml @ 10 mls/hr Q24H IV Last administered on 01/08/17 08:52 ; Start 01/07/17 at 15:25 Pantoprazole/ Sodium Chloride (Protonix Inj/ Normal Saline) 100 ml @ 10 mls/hr Q10H IV Last administered on 01/08/17 11:53; Start 01/07/17 at 20:00 Methadone HCl (Dolophine) 5 mg BID PO Last administered on 01/08/17 08:52; Start 01/07/17 at 20:30 Metoprolol Tartrate (Lopressor) 25 mg BID PO Last administered on 01/08/17 08: 52; Start 01/07/17 at 20:30 Insulin Human Lispro (HumaLOG Insulin Inj) Nutritional Dose to be given pr... [facility] SUBQ Last administered on 01/08/17t 11:58; Start 01/07/17 at 22:00 Bedside Blood Glucose: 199 Labs Test 01/07/17 11:30 01/07/17 17:05 01/08/17 04:00 01/08/17 10:05 Prothrombin Time 12.0sec (8.1-12.5) Prothromb Time International Ratio 1.12ratio Lactic Acid Level 1.6mmol/L (0.4-2.0) Magnesium Level 1.6mg/dL (1.6-2.6) Procalcitonin 1.03ng/mL (0.00-0.08) Corrected White Blood Count 48.6th/mm3 (3.8-10.1) Promyelocytes % 2% (0-0) Sodium Level 132mEq/L (134-144) Potassium Level 4.1mEq/L (3.5-5.2) Chloride Level 97mEq/L (97-108) Carbon Dioxide Level 23mmol/L (18-29) Blood Urea Nitrogen 14mg/dL (6-24) Creatinine 0.77mg/dL (0.57-1.00) Estimat Glomerular Filtration Rate 117mL/min (>59) Glucose Level 204mg/dL (60-99) Calcium Level 7.7mg/dL (8.5-10.1) Total Bilirubin 0.9mg/dL (0.0-1.2) Aspartate Amino Transf (AST/SGOT) 78U/L (0-50) Alanine Aminotransferase (ALT/SGPT) 19U/L (0-32) Alkaline Phosphatase 143U/L (25-150) Total Protein 7.7g/dL (6.4-8.4) Albumin 2.3g/dL (3.4-5.0) White Blood Count 44.8th/mm3 (3.8-10.1) Red Blood Count 3.17mil/mm3 (3.90-5.20) Hemoglobin 9.1g/dL (12.0-15.6) Hematocrit 27.3% (35.0-46.0) Mean Corpuscular Volume 86.1fL (81-100) Mean Corpuscular Hemoglobin 28.7pg (27.0-35.0) Mean Corpuscular Hemoglobin Concent 33.3% (32.0-37.0) Red Cell Distribution Width 17.6% (12.3-15.4) Platelet Count 35bil/L (150-400) Neutrophils (%) (Auto) 56% (40-74) Lymphocytes (%) (Auto) 10% (14-46) Monocytes (%) (Auto) 7% (4-12) Eosinophils (%) (Auto) 1% (0-5) Basophils (%) (Auto) 0% (0-3) Band Neutrophils % 14% (1-5) Metamyelocytes % 5% (0-0) Myelocytes % 6% (0-0) Blast Cells % 1% (0-0) Nucleated Red Blood Cells 4/100 WBC (0-24) Hematology Comments Rbc Plan Impression Patient chart reviewed, patient interviewed and anesthestic plan with risks, benefits, and alternatives discussed, and informed consent obtained. NPO Status: MN ASA Physical Status: ASA3 Severe Disease Anesthetic Plan: MAC Bene/Risks/Altern/Consents: Yes HP Complete Prior to Induction: Yes Isaac Virk MD Jan 08, 2017 14:01
[2017-01-08] MEDS ORDERED: HepLOK Flush 100 unit/mL 5 mL Inj ONE (14:53)
[2017-01-08] MEDS ORDERED: Heparin 5,000 Unit/mL Inj ONE (14:53)
--- NOTE | 2017-01-08 16:34 | PCM.PNMED ---
Subjective Date of Service Jan 08, 2017 Subjective Patient is feeling much better after 3 units of packed red blood cells being transfused. She denies any episodes of hematemesis or nausea. She remains afebrile and her back pain is well controlled with her home pain medications. Exam Vital Signs Vital Sign - Last Date Time Temp Pulse Resp B/P Pulse Ox O2 Delivery O2 Flow Rate FiO2 01/08/17 11:46 36.9 84 16 142/79 95 Room Air Intake and Output 01/07/17 01/07/17 01/08/17 Cumulative From/Thru 15:00 23:00 07:00 01/07/17 10:25 - 01/08/17 06:47 Intake Total 1000 ml 1665 ml 2684 ml 5349 ml Output Total 0 ml 2225 ml 2225 ml Balance 1000 ml 1665 ml 459 ml 3124 ml Intake Oral 480 ml 450 ml 930 ml IV Total 1000 ml 1185 ml 2234 ml 4419 ml Output Urine Total 0 ml 2225 ml 2225 ml # Bowel Movements 0 0 Exam General: Alert and oriented x3, morbidly obese pleasant female, chronically- ill appearance, in no acute distress HEENT: Atraumatic, normocephalic, pale conjunctiva, moist oral mucosa Neck: Supple, no cervical lymphadenopathy or thyromegaly, full range of motion. Chemo port on the left chest with no erythema, warmth, or discharge. Cardiovascular: Regular rate and rhythm, no murmur appreciated. Respiratory: Clear to auscultation bilaterally, decreased breath sound at the bases. No wheezes, rales or rhonchi. Abdomen: Obese, soft, non-distended, non-tender, no guarding, no rebound, no distention Extremities: Intravenous access, left arm. Trace edema in the lower extremities, no cyanosis or clubbing. Neurologic: Neurologically intact with no focal deficits. Psychiatric: Normal mood and affect. Skin: Mild ecchymosis around the IV assess. No rashes. IVs and Medications Medications Reviewed: Medications were reviewed in detail Lab and Diagnostics Result Diagram: 01/08/17 1005 01/08/17 0400 Microbiology Blood cultures are pending at this moment X-Rays, CTs and MRIs Portable CXR IMPRESSION: 1. Bibasilar airspace disease (right slightly greater than left) is most suspicious for developing pneumonia. 2. No large effusion. 3. Unchanged Port-A-Cath central line. Dictated and approved by: Won Thornton M.D. on 01/07/2017 at 10:28 Assessment & Plan Camelia Barahona is a 41 year-old female with metastatic triple negative breast cancer with diffuse osseous metastasis, persistent severe anemia, thrombocytopenia, and insulin-using diabetes type 2 who was sent to the Emergency Department from [facility] due to hematemesis and vomiting for 4 days. Patient was admitted for infection workup and possible gastrointestinal bleed. Hospital day #2. 1. Acute on chronic normocytic anemia, present on admission. Active. - Suspect to be due to upper gastrointestinal bleed given severe thrombocytepenia and ongoing emesis. - Both the anemia and thrombocytopenia are likely secondary to bone marrow suppression from the extensive ossesous metastasis. - Gastroenterology consulted. They do not feel an urgent need of performing upper endoscopy at this time. - Continue proton pump inhibitor drip. - Status post 3 units of packed red blood cells transfusion. - Improved hemoglobin and hematocrit. 2. Acute blood loss anemia, present on admission. Active. - Suspect to be due to upper gastrointestinal bleed given severe thrombocytepenia and ongoing emesis. - Status post 3 units of packed red blood cells transfusion. - Continue to monitor serial hemoglobin and hematocrit every 6 hours. 3. Leukemoid reaction, present on admission. Active. - The day of admission, patient had a follow-up lab draw at the oncology office and was found to have marked leukocytosis of 65.7. Her white blood count on was normal at 4.8. - Improved white blood count today - Etiology is most likely patient's malignancy and/or severe hemorrhage. Differential diagnosis also would include severe infection, intoxication, acute hemolysis. - CT biopsy bone to be performed today per Dr. Damon, oncology. - Consider work up of chronic myelogenous leukemia and chronic neutrophilic leukemia. - Blood cultures are pending - Monitor labs 4. Diabetes mellitus type II, insulin-dependent, present on admission. Active. -Patient is on metformin, 1000 mg by mouth twice a day and Lantus, 42 units subcutaneous before bedtime daily. -Discontinue metformin and start nutritional and correctional medium dose insulin lispro. -Monitor labs. 5. Morbid obesity, present on admission. Active. - Patient is morbidly obese with body mass index of 42.6 kg/m2. - Patient is on clear liquids currently in preparation for upper endoscopy tomorrow. We will start consistent carb diet tomorrow afternoon. - Recommend entry level project coordinator consult. 6. Drug dependence, present on admission. Active. - Patient with active breast cancer with diffuse osseous metastasis. - Patient is on chronic daily use of methadone, 5 mg by mouth twice a day, and oxycodone- acetaminophen, 5-325 mg 1-2 tablet every 6 hours by mouth as needed for back pain. - We will continue her home dose of the above-mentioned medications. Pain Evaluation: Adequate Pain Control GI Prophylaxis: Proton Pump Inhibitor VTE Prophylaxis: SCDs Resuscitation Status: CPR: Attempt Resuscitation copies to: Caden Jay MD Pain Evaluation: Adequate Pain Control Attending Statement The patient was seen and examined together with Dr. Jerry on 01/08/2017 and I agree with the history, exam and plan as outlined in the note above. . Ashley Jerry DO Jan 08, 2017 16:34 Zackary Braga MD Jan 09, 2017 18:44
--- NOTE | 2017-01-08 16:44 | PCM.ANEP2 ---
Post Anesthesia Evaluation ASA/CMS Post Anesthesia VS in Patient's Normal Range?: Yes Resp Stable; Airway Patent?: Yes CV Function & Hydration Stable: Yes Mental Status Recovered?: Yes Pain control Satisfactory?: Yes N/V Control Satisfactory?: Yes Isaac Virk MD Jan 08, 2017 16:44
--- NOTE | 2017-01-08 16:51 | DRSVH ---
PROCEDURE: CT-GUIDED BIOPSY OF THE DEEP BONE (PNL-7486) Sedation was administered by anesthesiology. INDICATIONS: BREAST CANCER, BONE METASTASES TECHNIQUE: The indications, alternatives, benefits, risks, and possible complications of the procedure were comm unicated to the patient. Informed written consent from the patient was obtained and placed in the art. Continuous EKG and hemodynamic monitoring was started by trained personnel. For radiation dose reduction, the following was used: automated exposure control, adjustment of mA and/or kV according to patient size. The patient was brought to the CT suite and legal billing coordinator spiral CT imaging was performed with localization g rid. The appropriate site for percutaneous access to the biopsy target was marked, was prepped and d raped sterilely, and was infused with local anaesthesia. Under CT guidance, a core biopsy trocar and needle set was advanced to the biopsy target. No aspirate was able to be obtained. In addition, upon removal of the needle, no marrow sample was obtained. The trocar and needle were then removed, and t he patient was sent for post-procedure monitoring. COMPARISON: None. FINDINGS: Biopsy site: Right iliac crest Needle: Futuredermshidi biopsy needle Medications: 1% lidocaine for local anaesthesia. Sedation administered by anesthesiology. Complications: None. IMPRESSION: Despite CT confirmation of marrow location, no marrow aspirate or biopsy sample was able to be obtained. Dictated by: Heahter Castano M.D. on 01/08/2017 at 16:48 Approved by: Heather Castano M.D. on 01/08/2017 at 16:50
[2017-01-09] MEDS: oxyCODONE-Acetamin 5-325 mg Tablet PO PRN (01:14)
--- NOTE | 2017-01-09 01:33 | PROG NOTE ---
[address] [address] PROGRESS NOTE PATIENT: SUDHEER PEREZ : 1975 MR#: [id number] ADMIT: 01/07/2017 JOB ID: [id number] DATE: SUBJECTIVE: In speaking with dealer support technician, it does not sound like the patient has had any further overt bleeding. OBJECTIVE: Vital signs were stable. Blood pressures have been a little bit elevated. I did not have a chance to speak with the patient today. When I saw her, she was sedated in the CT scanner experiencing a bone marrow biopsy. LABORATORY DATA: Labs reviewed. White count still elevated at 44.8. Hemoglobin is appropriately elevated with transfusion up to 9.1. Platelets were 35. BUN is 14. AST was 78. The remainder of the liver tests were normal. ASSESSMENT AND RECOMMENDATIONS: A 41-year-old female with severe anemia and thrombocytopenia in the face of metastatic breast cancer with bone marrow involvement. She appears to have developed some form of systemic illness that has resulted in an impressive leukocytosis with nausea, vomiting. The coffee-grounds emesis, I believe, was a secondary result of an as yet unidentified primary illness. I discussed this with the team today and suggested that we only pursue esophagogastroduodenoscopy acutely if she has more accelerated bleeding symptoms. Otherwise, I would recommend further infectious disease workup including possibly lower lumbar and sacral spinal imaging. For now, diet should indeed be advanced and will see how she does clinically.
[2017-01-09 03:47] LABS: BASOPHILS % (AUTO) 2 % (0-3); EOSINOPHILS % (AUTO) 0 % (0-5); MONOCYTES % (AUTO) 1 % (4-12); Mean Corpuscular Hemoglobin 28.3 pg (27.0-35.0); Mean Corpuscular Volume 89.8 fL (81-100); NEUTROPHILS % (AUTO) 51 % (40-74); Platelet Count 17 bil/L (150-400)
[2017-01-09 04:01] VITALS: BP 119/71; PULSE 90; RESP 14; O2SAT 96
[2017-01-09 07:42] VITALS: BP 129/80; PULSE 92; RESP 18; O2SAT 96
[2017-01-09] MEDS: Insulin LISPRO 300 Unit/3 mL Inj SUBQ SCH ×2 (08:09→12:46)
--- NOTE | 2017-01-09 09:59 | PCM.PNMED ---
Subjective Date of Service Jan 09, 2017 Subjective GASTROENTEROLOGY MEDICAL PROGRESS NOTE: Patient reports to be back to her baseline this morning. She feels good, tolerates general diet well, and has normal bowel movement. Patient remains afebrile and denies any abdominal pain, nausea, or vomiting. No sign of overt bleeding. Her WBC is trending down and H/H have been stable since she received 3 units of PRBC. Exam Vital Signs Vital Sign - Last Date Time Temp Pulse Resp B/P Pulse Ox O2 Delivery O2 Flow Rate FiO2 01/09/17 07:42 37.3 92 18 129/80 96 Room Air Intake and Output 01/08/17 01/08/17 01/09/17 Cumulative From/Thru 15:00 23:00 07:00 01/07/17 10:25 - 01/09/17 05:02 Intake Total 180 ml 692 ml 6221 ml Output Total 1000 ml 3225 ml Balance 180 ml -308 ml 2996 ml Intake Oral 473 ml 1403 ml IV Total 180 ml 219 ml 4818 ml Output Urine Total 1000 ml 3225 ml # Bowel Movements 1 1 Exam General: Awake and Alert x3, Morbidly obese, Cooperative, In no acute distress. HEENT: Atraumatic, Normocephalic, PERRL, moist oral mucosa with no thrush visualized Neck: Supple, trachea midline, no cervical lymphadenopathy or thyromegaly. Chemo port on the left chest with no erythema, warmth, or discharge. No pain on palpation. Cardiovascular: Regular rate & rhythm, No murmurs or gallops appreciated. Respiratory: Clear to auscultation. No wheezes/rales/rhonchi appreciate. No accessory muscle use. Abdomen: Obese, Soft, Non-distended, Non-tendern, No guarding, No rebound. Normal active bowel sound. Extremities: Trace edema in the lower extremities, No tenderness, No cyanosis or clubbing. Neurologic: Neurologically intact with no focal deficits, normal speech, 5/5 motor strength. Sensation to light touch grossly intact. Psychiatric: Mood/affect normal, Behavior normal. Skin. Mild ecchymosis around the IV assess. No petechiae or rashes noted. IVs and Medications Medications Reviewed: Medications were reviewed in detail Lab and Diagnostics Result Diagram: 01/09/17 0300 01/09/17 0300 Microbiology Blood cultures are pending at this moment X-Rays, CTs and MRIs Portable CXR IMPRESSION: 1. Bibasilar airspace disease (right slightly greater than left) is most suspicious for developing pneumonia. 2. No large effusion. 3. Unchanged Port-A-Cath central line. Dictated and approved by: Won Thornton M.D. on 01/07/2017 at 10:28 Assessment & Plan 41 year-old female with triple negative breast cancer with diffuse osseous metastasis, persistent severe anemia, thrombocytopenia, and insulin-using diabetes type 2 who was sent to the ED from the [facility] due to hematemesis and vomiting increasing in severity onset 4 days prior to admission. Patient was admitted for marked leukocytosis with acute on chronic anemia and thrombocytopenia. GI service was consulted for possible GI bleed that led to coffee-grounds emesis and anemia. 1. Acute on chronic normocytic anemia, present on admission, improved. - s/p 3 units of PRBC transfusion with clinical improvement. - Initially suspected to be due to upper GI bleed, but in retrospect, it is likely a reaction to a systemic process given the patient's metastatic breast cancer with bone marrow involvement. - GI will pursue EGD if patient has more accelerated bleeding symptoms. This was discussed with the patient and she agreed. - H/H were stable until this morning, when hemoglobin drops to 7.5 from 9.2. Will continue to monitor CBC. - Continue general diet as tolerated. - Will transition PPI drip to Protonix 40mg PO BID today. - The coffee-grounds emesis is possibly secondary to an as yet unidentified primary illness. - Blood culture has been negative for 24 hours. - CT- guided bone biopsy was unsuccessful yesterday. - We will defer to hematology-oncology and the primary team for infectious disease workup. Thank you for this consultation. Please contact us if you have any question or concern. Pain Evaluation: Adequate Pain Control GI Prophylaxis: Proton Pump Inhibitor VTE Prophylaxis: Sub-Q Heparin (Unfractionated) Resuscitation Status: CPR: Attempt Resuscitation Attending Statement Patient was discharged prior to my bedside evaluation. I did not physically see patient today. Megan Rosenberg DO Jan 09, 2017 09:59 Willie Walsh MD Jan 09, 2017 17:43 Patient seen and examined. Agree with assessment and plan as described by Dr Rosenberg. There is concern in regards infection with respect to the marked leukocytosis when last month white counts were essentially normal. Patient received a blood transfusion last week. Blood culture results are pending. She really has no focal symptoms to speak of - no ST, [place], cough, sputum, dysuria , rash, joint pain, dysphagia, odynophagia, ab pain. She has felt nauseated in last 4 days with vomiting. No overt bleeding. Coffee ground emesis. No report of melena. I suspect the coffee ground emesis to be reaction to systemic process rather than the primary source for symptoms/profound anemia. Would defer to hematology/oncology and the primary service w/r/t infectious disease workup. Wonder if MRI imaging of lower back would be of value in that she has had a 5/10 pain in her lower back for about a month now - ?? osteomyelitis. Will discuss case with hematology b/c if primary source for symptoms is identified, not sure we really need to pursue upper endoscopy in the face of thrombocytopenia. Pain Evaluation: Adequate Pain Control GI Prophylaxis: Proton Pump Inhibitor VTE Prophylaxis: Sub-Q Heparin (Unfractionated) Resuscitation Status: CPR: Attempt Resuscitation Megan Rosenberg DO Jan 09, 2017 09:59
[2017-01-09] MEDS ORDERED: 0.9% Sodium Chloride 250 ML IV SCH ×2 (10:50→12:45)
--- NOTE | 2017-01-09 11:53 | PCM.PNMED ---
Subjective Date of Service Jan 09, 2017 Subjective 41 year old woman with a past medical history of triple negative breast cancer with diffuse osseous metastasis, currently undergoing chemotherapy, persistent anemia, and persistent thrombocytopenia. She presented with hematemesis and leukocytosis. Yesterday, she underwent a bone marrow biopsy at the right iliac. Unfortunately , the preliminary report from Dr. Shea stated that they were not able to aspirate any bone marrow. Today she feels a little more energized. Pain is well controlled with methadone. She denies pain at the biopsy site. Appetite has increased and she hopes to eat "real food" soon. In the past week she has noticed a change in vision, somewhat blurry with floating hazy lights in her peripheral vision in both eyes, especially when the room is dark. She denies nausea, vomiting, eye pain, dizziness, vertigo, or ataxia. She does not feel that it is progressing. Her last eye exam was 1 year ago. Her white blood cell count continues to decrease. However, her hemoglobin and platelet levels have significantly decreased in the past 24 hours. She denies worsening weakness, bruising, or bleeding from gums. Exam Vital Signs Vital Sign - Last Date Time Temp Pulse Resp B/P Pulse Ox O2 Delivery O2 Flow Rate FiO2 01/09/17 07:42 37.3 92 18 129/80 96 Room Air Intake and Output 01/08/17 01/08/17 01/09/17 Cumulative From/Thru 15:00 23:00 07:00 01/07/17 10:25 - 01/09/17 05:02 Intake Total 180 ml 692 ml 6221 ml Output Total 1000 ml 3225 ml Balance 180 ml -308 ml 2996 ml Intake Oral 473 ml 1403 ml IV Total 180 ml 219 ml 4818 ml Output Urine Total 1000 ml 3225 ml # Bowel Movements 1 1 Exam General: patient is alert and conversant. Lying comfortably in bed. Skin: biopsy site at right iliac crest is without erythema or discharge. Dressing is clean and intact. HEENT: cheeks have good color, conjunctiva slightly pale. CV: heart regular rate and rhythm, no murmurs. Respiratory: lungs clear to auscultation bilaterally Neuro: CN II-XII grossly intact. Extremities: no pitting edema. Lab and Diagnostics Result Diagram: 01/09/17 0300 01/09/17 0300 Microbiology Blood cultures are pending at this moment X-Rays, CTs and MRIs Portable CXR IMPRESSION: 1. Bibasilar airspace disease (right slightly greater than left) is most suspicious for developing pneumonia. 2. No large effusion. 3. Unchanged Port-A-Cath central line. Dictated and approved by: Won Thornton M.D. on 01/07/2017 at 10:28 Additional Diagnostics PROCEDURE: CT-GUIDED BIOPSY OF THE DEEP BONE IMPRESSION: Despite CT confirmation of marrow location, no marrow aspirate or biopsy sample was able to be obtained. Dictated by: Heather Castano M.D. on 01/08/2017 at 16:48 Assessment & Plan Camelia Barahona is a 41 year-old female with metastatic triple negative breast cancer with diffuse osseous metastasis, persistent severe anemia, thrombocytopenia, and insulin-using diabetes type 2 who was sent to the Emergency Department from the [facility] due to hematemesis and vomiting for 4 days. Patient was admitted for infection workup and possible gastrointestinal bleed. Hospital day #3. 1. Acute on chronic normocytic anemia, present on admission. Active. - Suspect to be due to upper gastrointestinal bleed given severe thrombocytepenia and ongoing emesis. - Both the anemia and thrombocytopenia are likely secondary to bone marrow suppression from the extensive ossesous metastasis. - Gastroenterology consulted. They do not feel an urgent need of performing upper endoscopy at this time unless she has signs of another bleed. - Status post 3 units of packed red blood cells transfusion. Initial improvement in hemoglobin and hematocrit, but recent decline of hemoglobin to 7.5 (from 9.1 yesterday). - She feels much improved but because of the abrupt drop in hemoglobin, we will transfuse 1 unit of pRBCs to avoid her hemoglobin dropping below 7 over the weekend. - Repeat CBC on Thursday. The patient agrees. - Continue proton pump inhibitor drip. 2. Acute blood loss anemia, present on admission. Active. - Suspect to be due to upper gastrointestinal bleed given severe thrombocytepenia and ongoing emesis. - No further hematemesis or other gross signs of bleeding. - Status post 3 units of packed red blood cells transfusion. - See bolded plan in #1 above. 3. Leukemoid reaction, present on admission. Active. - The day of admission, patient had a follow-up lab draw at the oncology office and was found to have marked leukocytosis of 65.7. Her white blood count on was normal at 4.8. - Improved white blood count today. - Etiology is most likely patient's malignancy and/or severe hemorrhage. Differential diagnosis also would include severe infection, intoxication, acute hemolysis. - CT biopsy bone marrow was unsuccessful in obtaining a specimen. Will continue to consult with her oncologist Dr. Jay. - Blood cultures negative. She does not appear ill and has been afebrile, so infection is unlikely. - Monitor CBC. 4. Persistent thrombocytopenia. Active. - Most likely due to chemotherapy. - Drop to 17 (from 35 yesterday). Asymptomatic. - Consulted with the oncologist development consultant, Dr. Barr. He recommends platelet transfusion if her platelet level drops below 15, and she becomes symptomatic. - Will check CBC on Thursday. 5. Vision changes. Not present on admission. - Hazy lights in visual field for one week. Not progressing. Denies any other neurologic symptoms. - Differential includes chemotherapy-related neuropathy, scotoma, diabetic retinopathy. - This symptom seems to be stable. - Informed patient that if she experiences worsening visual changes along with nausea, vomiting, severe headache, or significant dizziness, to go to the emergency room. 6. Triple negative breast cancer with osseous metastasis. Active. - Currently undergoing chemotherapy every 3 weeks. Gets weekly CBC checks on Wednesdays. - Appreciate coordinated care with her oncologist, Dr. Jay. 7. Diabetes mellitus type II, insulin-dependent, present on admission. Active. -At home, patient is on metformin, 1000 mg by mouth twice a day and Lantus, 42 units subcutaneous before bedtime daily. -Discontinue metformin and start nutritional and correctional medium dose insulin lispro. -Last glucose was 227. Consider adjusting correctional dose of insulin. -Monitor labs. -On discharge, continue home meds. 8. Morbid obesity, present on admission. Active. - Patient is morbidly obese with body mass index of 42.6 kg/m2. - Patient is on clear liquids currently in preparation for upper endoscopy tomorrow. We will start consistent carb diet tomorrow afternoon. - Recommend software packaging engineer consult. 9. Drug dependence, present on admission. Active. - Patient with active breast cancer with diffuse osseous metastasis. - Patient is on chronic daily use of methadone, 5 mg by mouth twice a day, and oxycodone- acetaminophen, 5-325 mg 1-2 tablet every 6 hours by mouth as needed for back pain. - She expresses that her pain is well controlled. - We will continue her home dose of the above-mentioned medications. GI Prophylaxis: Proton Pump Inhibitor VTE Prophylaxis: Sub-Q Heparin (Unfractionated) Resuscitation Status: CPR: Attempt Resuscitation Time spent 50 minutes total LASHANDA FREEMAN MD Jan 09, 2017 11:53 Zackary Braga MD Jan 11, 2017 17:30
[2017-01-09 12:00] VITALS: BP 120/80; PULSE 107; RESP 18; O2SAT 95
[2017-01-09 12:07] VITALS: BP 137/72; PULSE 103; RESP 16
[2017-01-09 12:30] VITALS: BP 124/72; PULSE 96; RESP 16
[2017-01-09] MEDS ORDERED: Sodium Chloride LOK Flush 10 mL Syringe IVFLUSH PRN ×2 (12:45)
[2017-01-09] MEDS ORDERED: HepLOK Flush 100 unit/mL 5 mL Inj IVFLUSH PRN (12:45)
--- NOTE | 2017-01-09 14:48 | PCM.DIMED ---
Chalo Moran DO 01/09/17 1342: Discharge Instructions Date of Service Jan 09, 2017 Dates of Hospitalization Jan 07, 2017 at 14:17 Discharge Diagnosis Discharge Diagnosis Acute on chronic normocytic anemia Acute blood loss anemia Leukemoid reaction Diabetes mellitus type II, insulin-dependent Morbid obesity Drug dependence Medication Instructions -Continue your home medications. Take them as directed. Diet Diabetic Activity Limited until seen by PCP Call your provider Fever or Chills, Shortness of breath, Bleeding, Vomitting, Weakness (unilateral) , Other (Acute vision changes, dizziness, lightheadedness, confusion) Patient Instructions Please follow up with [facility] on 2016 to have CBC and CMP drawn, which will determine if transfusion(s) will be required. Zackary Braga MD 01/09/17 6634: Discharge Instructions Attending's Statement The patient was seen and examined together with Dr. Jerry on 01/09/2017 and I agree with the history, exam and plan as outlined in the note above. . Chalo Moran DO Jan 09, 2017 13:42 Zackary Braga MD Jan 09, 2017 18:44
[2017-01-09 16:00] VITALS: BP 113/72; PULSE 110; RESP 20; O2SAT 95
[2017-01-09] MEDS ORDERED: Pantoprazole 40 mg ER24 Tablet PO SCH (16:30)
--- NOTE | 2017-01-09 19:59 | PCM.DC.MED ---
Discharge Summary Date of Service Jan 09, 2017 Dates of Hospitalization Date of Hospital Admission Jan 07, 2017 at 14:17 Date of Discharge: Jan 09, 2017 Providers: Admitting Physician: Zackary Braga MD Primary Care Physician: Nopcp Attending Physician: Zackary Braga MD Diagnosis at Time of Discharge Diagnosis at Time of Discharge Acute on chronic normocytic anemia Acute blood loss anemia Leukemoid reaction Diabetes mellitus type II, insulin-dependent Morbid obesity Drug dependence Consultations Oncology: Dr. Damon, Dr. Barr Gastroenterology: Dr. Walsh Procedures XRay, CTs & MRIs Portable CXR IMPRESSION: 1. Bibasilar airspace disease (right slightly greater than left) is most suspicious for developing pneumonia. 2. No large effusion. 3. Unchanged Port-A-Cath central line. Dictated and approved by: Won Thornton M.D. on 01/07/2017 at 10:28 Other Diagnostics PROCEDURE: CT-GUIDED BIOPSY OF THE DEEP BONE IMPRESSION: Despite CT confirmation of marrow location, no marrow aspirate or biopsy sample was able to be obtained. Dictated by: Heather Castano M.D. on 01/08/2017 at 16:48 Brief History History of Present Illness: Camelia Barahona is a very pleasant 41 year-old female with metastatic triple negative breast cancer with diffuse osseous metastasis, persistent severe anemia , thrombocytopenia, and insulin-using diabetes type 2 who was sent to the Emergency Department from the Cancer Center due to hematemesis and vomiting for about 4 days. Patient reports seeing an oncologist every week on Wednesdays. Today, patient had a follow-up lab draw at the oncology office and was found to have marked leukocytosis of 65.7, hemoglobin 6.6, and platelet count at 22. Her white blood count on 12/31 was normal at 4.8. Patient reports having been feeling sick for about the last 2-3 weeks. She admits to generalized weakness, malaise, dizziness, poor appetite, nausea, vomiting,weight loss and low back pain. She reports coffee-ground emesis that has been ongoing for 4 days. She has had at least 2-3 episodes of vomiting today. Patient states that with her current chemotherapy she feels nauseated on a daily basis. She has been using Zofran but it no longer works for her. She denies hematuria, hematochezia, melena, abdominal pain, chest pain, shortness of breath, cough, dysuria, constipation, diarrhea. Her bowel movements are regular and last one was this morning and it was normal. She takes methadone and percocet on a regular basis and it seems to control her cancer-related pain really well. She denies any fever or chills, but admits that she has been feeling sweaty and clammy. Her last chemotherapy was 2-3 weeks ago and she received 2 units of packed red blood cells one week ago when her hemoglobin was 5.9. Patient denies any history of gastrointestinal bleed in the past. She has never had either upper or lower endoscopy. Earlier this year a bone marrow biopsy was attempted to differentiate between chemotherapy-induced myelosuppression versus metastatic carcinoma to the bone marrow but the procedure was unsuccessful. Even with holding the chemotherapy, her platelet count did not improve and has progressively decreased. Thus, it was thought that her thrombocytopenia is likely due to her metastatic breast cancer to the bone. She is disabled and lives with her daughter. Prior to the diagnosis of cancer she used to work in the [employer]. Her oncologist is Dr. Jay. Upon arrival to the emergency room patient has been examined and started on intravenous normal saline fluids and intravenous antibiotics: vancomycin, zosyn , doxycycline, and tobramycin. Gastroenterology was consulted due to concern of upper gastrointestinal bleed. Hospital Course Camelia Barahona is a 41 year-old female with metastatic triple negative breast cancer with diffuse osseous metastasis, persistent severe anemia, thrombocytopenia, and insulin-using diabetes type 2 who was sent to the Emergency Department from the Cancer Center due to hematemesis and vomiting for 4 days. Patient was admitted for infection workup and possible gastrointestinal bleed. 1. Acute on chronic normocytic anemia, present on admission. Active. - Suspected to be due to upper gastrointestinal bleed given severe thrombocytepenia and ongoing emesis. - Both the anemia and thrombocytopenia are likely secondary to bone marrow suppression from the extensive ossesous metastasis. - Gastroenterology consulted. They did not feel an urgent need of performing upper endoscopy at this time unless she has signs of another bleed. - Status post 3 units of packed red blood cells transfusion initially. Initial improvement in hemoglobin and hematocrit, but recent decline of hemoglobin to 7.5 (from 9.1). - Patient felt much improved but because of the abrupt drop in hemoglobin, she was transfused 1 unit of pRBCs to avoid her hemoglobin dropping below 7 over the weekend. - Patient will repeat CBC on 01/12/17 at [facility]. 2. Acute blood loss anemia, present on admission. Active. - Suspected to be due to upper gastrointestinal bleed given severe thrombocytepenia and ongoing emesis. - No further hematemesis or other gross signs of bleeding. - Status post 4 units of packed red blood cells transfusion. 3. Leukemoid reaction, present on admission. Active. - The day of admission, patient had a follow-up lab draw at the oncology office and was found to have marked leukocytosis of 65.7. Her white blood count on was normal at 4.8. - Improved white blood count on discharge. - Etiology was most likely patient's malignancy and/or severe hemorrhage. Differential diagnosis also would include severe infection, intoxication, acute hemolysis. - CT biopsy bone marrow was unsuccessful in obtaining a specimen. Patient's oncologist, Dr. Jay, would continue to follow. - Blood cultures negative. 4. Persistent thrombocytopenia, present on admission. Active. - Most likely due to chemotherapy. - Drop to 17 (from 35 the day before). Asymptomatic. - Consulted with the oncologist solutions architect, Dr. Barr. He recommended platelet transfusion if platelet level below 15, and patient symptomatic. 5. Vision changes, not present on admission. Stable. - Hazy lights in visual field for one week. Not progressing. No neurologic symptoms. - Differential includes chemotherapy-related neuropathy, scotoma, diabetic retinopathy. - This symptom seems to be stable. - Informed patient that if she experiences worsening visual changes along with nausea, vomiting, severe headache, or significant dizziness, to go to the emergency room. 6. Triple negative breast cancer with osseous metastasis. Active. - Currently undergoing chemotherapy every 3 weeks. Gets weekly CBC checks on Wednesdays. - Appreciate coordinated care with her oncologist, Dr. Jay. 7. Diabetes mellitus type II, insulin-dependent, present on admission. Active. -At home, patient is on metformin, 1000 mg by mouth twice a day and Lantus, 42 units subcutaneous before bedtime daily. -Discontinued metformin and started nutritional and correctional medium dose insulin lispro. -On discharge, continued home meds. 8. Morbid obesity, present on admission. Active. - Patient is morbidly obese with body mass index of 42.6 kg/m2.- - Recommend road design engineer consult. 9. Drug dependence, present on admission. Active. - Patient with active breast cancer with diffuse osseous metastasis. - Home pain medications: methadone, 5 mg by mouth twice a day, and oxycodone- acetaminophen, 5-325 g 1-2 tablet every 6 hours by mouth as needed for back pain. - Continued home dose of the above-mentioned medications. Disposition: Patient was discharged on hospital day 3 in a stable condition with close follow up with [facility] for blood work on 01/12/17. Exam Vital Signs (Last) Date Time Temp Pulse Resp B/P Pulse Ox O2 Delivery O2 Flow Rate FiO2 01/09/17 16:00 36.9 110 20 113/72 95 Room Air Exam General: Alert and oriented x3, morbidly obese pleasant female, chronically- ill appearance, in no acute distress HEENT: Atraumatic, normocephalic, pale conjunctiva, moist oral mucosa Neck: Supple, no cervical lymphadenopathy or thyromegaly, full range of motion. Chemo port on the left chest with no erythema, warmth, or discharge. Cardiovascular: Regular rate and rhythm, no murmur appreciated. Respiratory: Clear to auscultation bilaterally, decreased breath sound at the bases. No wheezes, rales or rhonchi. Abdomen: Obese, soft, non-distended, non-tender, no guarding, no rebound, no distention Extremities: Intravenous access, left arm. Trace edema in the lower extremities, no cyanosis or clubbing. Neurologic: Neurologically intact with no focal deficits. Psychiatric: Normal mood and affect. Skin: Biopsy site at right iliac crest is without erythema or discharge. Dressing is clean and intact. Test 01/07/17 11:30 01/07/17 17:05 01/08/17 10:05 01/09/17 03:00 Prothrombin Time 12.0sec (8.1-12.5) Prothromb Time International Ratio 1.12ratio Lactic Acid Level 1.6mmol/L (0.4-2.0) Magnesium Level 1.6mg/dL (1.6-2.6) Procalcitonin 1.03ng/mL (0.00-0.08) Promyelocytes % 2% (0-0) Myelocytes % 6% (0-0) Blast Cells % 1% (0-0) White Blood Count 31.0th/mm3 (3.8-10.1) Corrected White Blood Count 27.9th/mm3 (3.8-10.1) Red Blood Count 2.65mil/mm3 (3.90-5.20) Hemoglobin 7.5g/dL (12.0-15.6) Hematocrit 23.8% (35.0-46.0) Mean Corpuscular Volume 89.8fL (81-100) Mean Corpuscular Hemoglobin 28.3pg (27.0-35.0) Mean Corpuscular Hemoglobin Concent 31.5% (32.0-37.0) Red Cell Distribution Width 19.1% (12.3-15.4) Platelet Count 17bil/L (150-400) Neutrophils (%) (Auto) 51% (40-74) Lymphocytes (%) (Auto) 10% (14-46) Monocytes (%) (Auto) 1% (4-12) Eosinophils (%) (Auto) 0% (0-5) Basophils (%) (Auto) 2% (0-3) Band Neutrophils % 29% (1-5) Metamyelocytes % 6% (0-0) Nucleated Red Blood Cells 11/100 WBC (0-24) Hematology Comments Sodium Level 136mEq/L (134-144) Potassium Level 4.5mEq/L (3.5-5.2) Chloride Level 99mEq/L (97-108) Carbon Dioxide Level 24mmol/L (18-29) Blood Urea Nitrogen 14mg/dL (6-24) Creatinine 0.94mg/dL (0.57-1.00) Estimat Glomerular Filtration Rate 93mL/min (>59) Glucose Level 227mg/dL (60-99) Calcium Level 8.0mg/dL (8.5-10.1) Total Bilirubin 0.7mg/dL (0.0-1.2) Aspartate Amino Transf (AST/SGOT) 58U/L (0-50) Alanine Aminotransferase (ALT/SGPT) 17U/L (0-32) Alkaline Phosphatase 132U/L (25-150) Total Protein 7.2g/dL (6.4-8.4) Albumin 2.3g/dL (3.4-5.0) Microbiology Results Blood cultures are pending at this moment Discharge Medications Discharge Medications Atorvastatin Calcium (Atorvastatin Calcium) 10 Mg Tablet 10 MG PO HS (Reported) Gabapentin (Gabapentin) 300 Mg Capsule 900 MG PO HS (Reported) Insulin Glargine (Lantus U100 Solostar Insulin Pen) 100 Unit/1 Ml Insuln.pen 42 UNIT SUBQ HS (Reported) Levothyroxine (Levothyroxine) 75 Mcg Tablet 75 MCG PO QAM (Reported) Metformin (Metformin) 500 Mg Tablet 1,000 MG PO BID (Reported) Methadone (Methadone) 5 Mg Tablet 5 MG PO BID (Reported) Metoprolol Tartrate (Metoprolol Tartrate) 25 Mg Tablet 25 MG PO BID (Reported) Nortriptyline (Nortriptyline) 25 Mg Capsule 25 MG PO HS (Reported) As needed Ondansetron (Ondansetron) 8 Mg Tablet 8 MG PO BID PRN PRN For Nausea/Vomiting ( Reported) oxyCODONE-Acetaminophen 5-325 mg (oxyCODONE-Acetaminophen 5-325 mg) 1 Each Tablet 1-2 TAB PO Q6H PRN PRN For Pain Prescribed by: CHERYL RUIZ MD Additional med instructions -Continue your home medications. Take them as directed. Followup Plan Discharge Diet: Diabetic Discharge Activity: Limited until seen by PCP Patient Instructions Please follow up with [facility] on 2016 to have CBC and CMP drawn, which will determine if transfusion(s) will be required. Time spent Greater than 30 minutes was spent in preparation of discharge with greater than 50% of that time dedicated to patient counseling and coordination of care. . Attending Statement The patient was seen and examined together with Dr. Jerry on 01/09/2017 and I agree with the history, exam and plan as outlined in the note above. . copies to: Caden Jay MD, Oksana S DO Jan 09, 2017 19:59 Zackary Braga MD Jan 10, 2017 08:43
[2017-03-25] MEDS ORDERED: LEVO75TA4 PO (10:20)
== END 2017-01-09 16:09 | disposition home or self-care (01) | DRG 378 ==
LOC: SED 10:22 → OBSVTOIN 14:17 → PCC 14:17
PROVIDERS: ADMIT Internal Medicine; ATTEND Internal Medicine
PROC: 07DR3ZZ Extraction of Iliac Bone Marrow, Percutaneous Approach (ICD-10-PCS; principal; 2017-01-07)
PROC: 30233N1 Transfusion of Nonautologous Red Blood Cells into Peripheral Vein, Percutaneous Approach (ICD-10-PCS; 2017-01-07)
PROC: 30233N1 Transfusion of Nonautologous Red Blood Cells into Peripheral Vein, Percutaneous Approach (ICD-10-PCS; 2017-01-08)
PROC: 30233N1 Transfusion of Nonautologous Red Blood Cells into Peripheral Vein, Percutaneous Approach (ICD-10-PCS; 2017-01-09)
DX: K92.2 Gastrointestinal hemorrhage, unspecified (principal); D62 Acute posthemorrhagic anemia; D69.6 Thrombocytopenia, unspecified; C79.52 Secondary malignant neoplasm of bone marrow; Z68.41 Body mass index [BMI] 40.0-44.9, adult; E66.01 Morbid (severe) obesity due to excess calories; C50.911 Malignant neoplasm of unspecified site of right female breast; E11.9 Type 2 diabetes mellitus without complications; D72.823 Leukemoid reaction; Z79.4 Long term (current) use of insulin; Z79.84 Long term (current) use of oral hypoglycemic drugs; Z17.1 Estrogen receptor negative status [ER-]; Z92.21 Personal history of antineoplastic chemotherapy; Z87.891 Personal history of nicotine dependence; Z79.891 Long term (current) use of opiate analgesic

== ENCOUNTER 2017-03-23 15:40 | Emergency (ER) | payer OTHER ==
[~2017-03-23] VITALS: Ht 180.3 cm; Wt 136.4 kg
[~2017-03-23 15:40] MED LIST changes: +ATOR10TA66 PO; -ATOR20TA PO; -IBUP-1827 PO; +LEVO75TA4 PO; +METH5TAB3 PO; -MULT-1018 PO
[2017-03-23 15:50] VITALS: BP 111/68; PULSE 127; RESP 18; O2SAT 100
--- NOTE | 2017-03-23 16:14 | ED.REPORT ---
HPI-Abd Pain F 40 and Over Date of Service Mar 23, 2017 ED Provider: Angel Engle MD Pt is a chronically ill 41 year old female with a history of alopecia and metastatic breast cancer who presents to the ED complaining of abdominal swelling onset 4 days ago. She c/o associated SOB when laying flat. The pt denies pain, fever, nausea, vomiting, and swelling in her legs. She reports that swelling has caused her to gain 7 lbs since onset. Her last blood transfusion was 2-3 weeks ago. The pt reports that chemotherapy was not working , and that she was applying for immunotherapy. She also reported that her resting heart rate is normally 125-135. Nursing Notes Stated Complaint: STOMACH SWELLING Chief Complaint: Female Abdominal Pain Nursing Notes Reviewed: Yes (Mbaobao not reconciled) Allergies: Coded Allergies: No Known Allergies (Verified , 03/23/17) Scheduled Atorvastatin Calcium (Atorvastatin Calcium) 10 Mg Tablet 10 MG PO HS Furosemide (Furosemide) 20 Mg Tab 40 MG PO DAILY Gabapentin (Gabapentin) 300 Mg Capsule 900 MG PO HS Insulin Glargine (Lantus U100 Solostar Insulin Pen) 100 Unit/1 Ml Insuln.pen 42 UNIT SUBQ HS Levothyroxine (Levothyroxine) 75 Mcg Tablet 75 MCG PO QAM Metformin (Metformin) 500 Mg Tablet 1,000 MG PO BID Methadone (Methadone) 5 Mg Tablet 5 MG PO BID Metoprolol Tartrate (Metoprolol Tartrate) 25 Mg Tablet 25 MG PO BID Nortriptyline (Nortriptyline) 25 Mg Capsule 25 MG PO HS Potassium Chloride (Potassium Chloride) 20 Meq Tab.er.prt 20 MEQ PO DAILY TAKE WITH FOOD Spironolactone (Spironolactone) 100 Mg Tablet 100 MG PO DAILY Scheduled PRN Ondansetron (Ondansetron) 8 Mg Tablet 8 MG PO BID PRN PRN For Nausea/Vomiting oxyCODONE-Acetaminophen 5-325 mg (oxyCODONE-Acetaminophen 5-325 mg) 1 Each Tablet 1-2 TAB PO Q6H PRN PRN For Pain General Time Seen by MD: 16:12 Chief Complaint Other (Abdominal swelling) Hx Obtained From: Patient Arrived By: Walk-in Sudden in Onset?: No Onset Occurred: 4 days ago Symptom Duration: Since onset Location: : Diffuse Severity: Current: No pain currently Severity: Maximum: No pain Recent Healthcare: Recent doctor visit Similar Sx Previous: No Past Medical History Past Medical History Notes: Oncologist Dr. Jay Past Medical History Hx Breast cancer (metastatic, on chemo) Hx Bladder infection Prolapsed uterus Chronic tachycardia T2DM Past Surgical History None reported Smoking History Former Smoker Social History Alcohol Use: Denies alcohol use Drug Use: Denies drug use Ambulatory Status Independent Review of Systems + Abdominal swelling Constitutional: Denies: Fever Respiratory: Reports: Shortness of breath GI: Denies: Abdominal pain, Nausea, Vomiting Complete sys rev & neg: except as marked. Physical Exam Vital Signs Vital Signs (First) Date Time Temp Pulse Resp B/P Pulse Ox O2 Delivery O2 Flow Rate FiO2 03/23/17 15:50 35.5 127 18 111/68 100 Room Air Initial VS: Reviewed, Vital signs abnormal (HR 125) Head / Eyes: Atraumatic, Normocephalic, PERRL Neck: Supple, Full range of motion Extremities: Vascular intact, Neuro intact Skin: Warm, Dry, No cyanosis Neurologic: Alert, Oriented, Nonfocal Psychiatric: Mood/affect normal, Behavior normal General/Constitutional: Awake, Alert, Cooperative, Not toxic appearing Chronically ill Respiratory / Chest: Atraumatic, Breath sounds NL, Breath sounds = bilat Cardiovascular: Heart rate NL, Heart sounds NL Heart Rate / Rhythm: Positive: Tachycardia (with a rate of 125. Pt says that it is chronic and records confirm. ) Abdomen: Atraumatic, Non-tender Distended abdomen consistent with ascites. Back: Atraumatic, Inspection NL, Full range of motion ENT: Atraumatic, Airway patent, Pharynx NL Mouth: Positive: Mucous membranes dry Lower Extremity / Pelvis / MS: Atraumatic, Full range of motion, Neurologic intact, Vascular intact +1 pitting edema; tense legs. Interpretation & Diagnostics Lab Results Interpretation Result Diagram: 03/23/17 1630 03/23/17 1630 Test 03/23/17 16:30 03/23/17 17:00 White Blood Count th/mm3 (3.8-10.1) Corrected White Blood Count 19.3th/mm3 (3.8-10.1) Red Blood Count 3.18mil/mm3 (3.90-5.20) Hemoglobin 10.1g/dL (12.0-15.6) Hematocrit 32.9% (35.0-46.0) Mean Corpuscular Volume 103.5fL (81-100) Mean Corpuscular Hemoglobin 31.8pg (27.0-35.0) Mean Corpuscular Hemoglobin Concent 30.7% (32.0-37.0) Red Cell Distribution Width 24.4% (12.3-15.4) Platelet Count 46bil/L (150-400) Neutrophils (%) (Auto) 65% (40-74) Lymphocytes (%) (Auto) 11% (14-46) Monocytes (%) (Auto) 8% (4-12) Eosinophils (%) (Auto) 0% (0-5) Basophils (%) (Auto) 0% (0-3) Band Neutrophils % 13% (1-5) Metamyelocytes % 2% (0-0) Myelocytes % 1% (0-0) Nucleated Red Blood Cells 6/100 WBC (0-24) Sodium Level 129mEq/L (134-144) Potassium Level 5.1mEq/L (3.5-5.2) Chloride Level 97mEq/L (97-108) Carbon Dioxide Level 20mmol/L (18-29) Blood Urea Nitrogen 9mg/dL (6-24) Creatinine 0.63mg/dL (0.57-1.00) Estimat Glomerular Filtration Rate 148mL/min (>59) Glucose Level 163mg/dL (60-99) Calcium Level 7.9mg/dL (8.5-10.1) Total Bilirubin 1.2mg/dL (0.0-1.2) Aspartate Amino Transf (AST/SGOT) 73U/L (0-50) Alanine Aminotransferase (ALT/SGPT) 24U/L (0-32) Alkaline Phosphatase 254U/L (25-150) Troponin T < 0.010ug/L (0.0-0.011) Total Protein 7.8g/dL (6.4-8.4) Albumin 2.2g/dL (3.4-5.0) Human Chorionic Gonadotropin, Qual Negative (Negative) Prothrombin Time 12.5sec (8.1-12.5) Prothromb Time International Ratio 1.16ratio Ammonia 77ug/dL (18-53) Lab Results Interpretation: CBC, thrombocytopenia (mild), CMP mild hyponatremia, + left shift differential, on chemotherapy and stimulants Calcium low Liver function tests elevated Ammonia marginally elevated INR normal ECG Interpretation ECG Interpretation: Sinus tachycardia with a rate of 122. No interval changes compared with 01/07/17 Time: 17:06 Interpreted by: ED physician X-Ray Chest Interpretation Chest Xray Interpretation: IMPRESSION: 1. Small right-sided pleural effusion. 2. Right basilar opacity compatible with atelectasis versus pneumonia. Dictated by: Mariam Mahajan MD, PhD on 03/23/2017 at 16:43 View: Portable, 1 view Interpretation / Wet Read by: Interpret - Radiologist CT Abd / Pelvis Interpretation IMPRESSION: Minimal fluid, insufficient for therapeutic paracentesis. Dictated by: Heather Castano M.D. on 03/23/2017 at 17:20 Interpretation / Wet Read by: Interpret - Radiologist Re-Eval/Medical Decision Med Decision/Clinical Course This is a 41-year-old female with metastatic breast CA is was known to develop some small ascites on CT imaging earlier this month, she referred in by her daughter she is noticing some increasing abdominal distention of the past few days, and a sense of mild shortness breath or she lays completely flat. She denies fever, abdominal pain, nausea or vomiting, denies GI blood loss or additional complaint. Malignancies been refractory to current chemotherapy, and she is applying for immunotherapy which has not yet been instituted. On exam the patient's in no distress. She reports been able to eat, and has no other discomfort except for when she attempts to lie flat. Has some mild ascites on exam. She is obese She has trace edema in the legs. She has no additional complaints. I discussed the case the on-call oncologist, and attempt to set the patient up for a therapeutic paracentesis. However it turns out on ultrasound there is only trace amount ascites, not enough to really safely pursue paracentesis. The patient has an appointment with her oncologist in 2 days. The patient is reassured in this front, she is entirely comfortable going home, she does not appear toxic-appearing no findings suggest SBP. I will write for a trial of some furosemide and spironolactone in the meantime with some potassium supplementation. Routine and return precautions reviewed. Patient is discharged in stable condition Source of Hx: Old records Re-Evaluation/Progress : Time of Eval: 17:31 )( Re-Eval Abdomen: Non-tender Re-Evaluation/Progress Note: Pt rechecked. Informed pt of plan for discharge. Pt understands and agrees with plan for discharge. F/U instructions and RTER warnings given. All questions addressed. Consultation : Referral / Consult Name: Shakeel Barr MD Call Returned at: 16:29 Note: Consult with oncology. Recommended to not do any dianostic labs and to just to therapeutic. Counseled Regarding: Diagnosis, Lab results, Need for follow-up, When/why to return to ED Discharge & Departure Primary Impression: Ascites Ascites type: malignant Qualified Code: R18.0 - Malignant ascites Additional Impression: Metastatic breast cancer Disposition: Home Discharge Condition All VS Reviewed: Yes Condition: Stable Patient Instructions: Ascites (ED) Additional Instructions: 1. You have developed a small amount of "ascites" (fluid in the abdomen) from the cancer. 2. However, there is not enough fluid visible on ultrasound to benefit from drainage ("paracentesis") at this time. 3. Take furosemide 40mg daily and spirnanolactone 100mg daily to try and prevent further fluid accumulation. Review these medications with Dr. Jay on Thursday. He may modify them and/or posisbly add a potassium supplement. 4. Return if new or worsening symptoms. Referrals: NOPCP (PCP) Scribe Attestation Portions of this note were transcribed by Cassie Clayton. I, Dr. Engle personally performed the history, physical exam and medical decision-making; I reviewed and confirmed the accuracy of the information in the transcribed note. Signed by: Mita Serrano, 03/23/17 and 17:00. Angel Engle MD Mar 23, 2017 16:14 Cassie Gomez Mar 23, 2017 16:30
[2017-03-23] MEDS ORDERED: 0.9% Sodium Chloride 100 ML ONE (16:31)
[2017-03-23 16:36] LABS: Mean Corpuscular Hemoglobin 31.8 pg (27.0-35.0); Mean Corpuscular Volume 103.5 fL (81-100); Platelet Count 46 bil/L (150-400)
--- NOTE | 2017-03-23 16:46 | DRSVH ---
PROCEDURE: X-RAY CHEST ONE VIEW, PORTABLE ([id number]) INDICATIONS: sob TECHNIQUE: One view of the chest was acquired. COMPARISON: [facility], CR, XR CHEST 1VW (PORTABLE), 10/28/2016, 12:14. [facility], CR, XR CHEST 1VW (PORTABLE), 01/07/2017, 10:58. FINDINGS: Surgical changes and devices: Left chest wall Port-A-Cath is stable. Surgical clips in the axilla ani aterally stable. Lungs and pleura: Small right-sided pleural effusion noted increased opacification in the right lung base which could represent atelectasis versus pneumonia. Mediastinum: Mediastinal contours appear normal. Heart size is normal. Bones and chest wall: No suspicious bony lesions. Overlying soft tissues appear unremarkable. IMPRESSION: 1. Small right-sided pleural effusion. 2. Right basilar opacity compatible with atelectasis versus pneumonia. Dictated by: Mariam Mahajan MD, PhD on 03/23/2017 at 16:43 Approved by: Mariam Mahajan MD, PhD on 03/23/2017 at 16:44
[2017-03-23 17:01] LABS: BASOPHILS % (AUTO) 0 % (0-3); EOSINOPHILS % (AUTO) 0 % (0-5); MONOCYTES % (AUTO) 8 % (4-12); NEUTROPHILS % (AUTO) 65 % (40-74)
[2017-03-23 17:02] LABS: TROPONIN T < 0.010 ug/L (0.0-0.011)
--- NOTE | 2017-03-23 17:22 | DRSVH ---
PROCEDURE: US ABDOMEN, LIMITED ([id number]) INDICATIONS: therapeutic paracentesis (1st) TECHNIQUE: Real-time focused scanning was performed of the abdomen, with image documentation. COMPARISON: None. FINDINGS: Limited sonographic images of the abdomen demonstrate minimal fluid. IMPRESSION: Minimal fluid, insufficient for therapeutic paracentesis. Dictated by: Heather Castano M.D. on 03/23/2017 at 17:20 Approved by: Heather Castano M.D. on 03/23/2017 at 17:21
[2017-03-23 17:24] LABS: INR 1.16 ratio
[2017-03-23 17:48] VITALS: BP 103/70; PULSE 117; RESP 15; O2SAT 97
[2017-03-23] MEDS ORDERED: FUR20 PO (18:03)
[2017-03-23] MEDS ORDERED: SPIR100T3 PO (18:03)
[2017-03-23] MEDS ORDERED: POTA20TA16 PO (18:03)
[2017-03-23 18:38] VITALS: BP 119/74; RESP 20; O2SAT 98
[2017-03-25] MEDS ORDERED: LEVO75TA4 PO (10:20)
== END 2017-03-23 18:40 | disposition home or self-care (01) ==
LOC: SED 15:40
DX: R18.0 Malignant ascites (principal); C79.81 Secondary malignant neoplasm of breast; R60.0 Localized edema; E11.9 Type 2 diabetes mellitus without complications; R00.0 Tachycardia, unspecified; Z87.891 Personal history of nicotine dependence; Z86.2 Personal history of diseases of the blood and blood-forming organs and certain disorders involving the immune mechanism; Z90.49 Acquired absence of other specified parts of digestive tract; Z79.84 Long term (current) use of oral hypoglycemic drugs; Z79.4 Long term (current) use of insulin

== ENCOUNTER 2017-04-03 10:17 | Inpatient (IN) | payer OTHER ==
[~2017-04-03] VITALS: Ht 177.8 cm; Wt 149.5 kg
[2017-04-03] VITALS (7 sets, daily range): BP systolic 90–100; BP diastolic 38–71; PULSE 114–124; RESP 17–22; O2SAT 94–100
[~2017-04-03 10:17] MED LIST changes: +FUR20 PO; -INSU100I13 SUBQ; -METO25TA6 PO; +POTA20TA16 PO; +SPIR100T3 PO
--- NOTE | 2017-04-03 10:35 | ED.REPORT ---
HPI-General Illness Date of Service Apr 03, 2017 ED Provider: Girish Isaacs Pt is a 42 year old female with a history of metastatic breast cancer, and type II DM who presents to the ED via EMS after worsening of progressive weakness over the past week. She c/o associated weakness, SOB, vomiting, nausea, abdominal swelling and pressure, and constipation. She denies diarrhea, fever, and any other symptoms. Pt currently takes Spirolactone, Lasix, and Methadone (# 5 2x daily). Pt is currently undergoing immunotherapy for her breast cancer. Nursing Notes Stated Complaint: WEAKNESS Chief Complaint: General Complaint Nursing Notes Reviewed: Yes Allergies: Coded Allergies: No Known Allergies (Verified , 03/23/17) Scheduled Calcium Carbonate/Vitamin D3 (Calcium 1,000 + D3 Caplet) 1 Each Tablet 2 EACH PO HS Cholecalciferol (Vitamin D3) (Vitamin D) 1,000 Unit Capsule 1,000 UNIT PO HS Furosemide (Furosemide) 40 Mg Tablet 40 MG PO HS Gabapentin (Gabapentin) 300 Mg Capsule 900 MG PO HS Levothyroxine (Levothyroxine) 100 Mcg Tablet 100 MG PO QAM Metformin (Glucophage) 1,000 Mg Tablet 1,000 MG PO BID Methadone (Methadone) 5 Mg Tablet 5 MG PO BID Nortriptyline (Nortriptyline) 25 Mg Capsule 25 MG PO HS Spironolactone (Spironolactone) 100 Mg Tablet 100 MG PO DAILY Trospium Chloride (Trospium Chloride) 20 Mg Tablet 20 MG PO BID Scheduled PRN Ondansetron (Ondansetron) 8 Mg Tablet 8 MG PO QID PRN PRN For Nausea/Vomiting Prochlorperazine Maleate (Prochlorperazine) 10 Mg Tablet 10 MG PO QID PRN PRN For Nausea oxyCODONE-Acetaminophen 5-325 mg (oxyCODONE-Acetaminophen 5-325 mg) 1 Each Tablet 1-2 TAB PO Q6H PRN PRN For Pain General Time Seen by MD: 10:35 Chief Complaint Other (Abdominal swelling) Hx Obtained From: Patient, EMS Arrived By: Ambulance Sudden in Onset?: No Onset Occurred: Just prior to arrival Symptom Duration: Since onset Severity: Current: No pain currently Severity: Maximum: No pain Recent Healthcare: Recent doctor visit Similar Sx Previous: Yes Past Medical History Past Medical History Notes: Oncologist Dr. Jay Past Medical History Breast cancer (metastatic, on chemo) Bladder infection Prolapsed uterus Chronic tachycardia T2DM Hyperthyroidism Past Surgical History None reported Smoking History Former Smoker Social History Alcohol Use: Denies alcohol use Drug Use: Denies drug use Other Social History: Good social support Ambulatory Status Independent Review of Systems Full Review of Systems Constitutional: Reports: Weakness - generalized, Denies: Fever Respiratory: Reports: Shortness of breath GI: Reports: Abdominal pain (Pressure), Constipation, Nausea, Vomiting, Denies: Diarrhea Skin: Reports Swelling Complete sys rev & neg: except as marked. Physical Exam Vital Signs Vital Signs Date Time Temp Pulse Resp B/P Pulse Ox O2 Delivery O2 Flow Rate FiO2 04/03/17 12:29 37.7 124 20 92/71 98 Nasal Cannula 2 04/03/17 11:32 124 22 90/51 100 Nasal Cannula 2 04/03/17 10:39 37.1 123 22 91/59 94 Room Air Initial VS: Reviewed Head / Eyes: Atraumatic, Normocephalic Neck: Supple, Full range of motion Respiratory: Breath sounds normal, Clear to auscultation, No respiratory distress Extremities: Vascular intact Skin: Warm, Dry, No cyanosis Neurologic: Alert, Oriented, Nonfocal Psychiatric: Mood/affect normal, Behavior normal General/Constitutional: Awake, Alert, No acute distress, Cooperative Appearance / Presentation: Positive: Obese, Pale Weak appearing. Bald. Cardiovascular: Regular rhythm, Heart sounds NL Heart Rate / Rhythm: Positive: Tachycardia Lower Ext Edema: Positive: Bilateral 1+ Abdomen: Atraumatic, Soft, Non-tender Bowel Sounds / Distention: Positive: Distention moderate Ankle / Foot: Neurologic intact, Vascular intact Small laceration at the sole of her foot with dried blood; no signs of infection. Toes are dusky in appearance. Interpretation & Diagnostics Lab Results Interpretation Result Diagram: 04/03/17 1045 04/03/17 1045 Test 04/03/17 10:45 04/03/17 11:55 04/03/17 12:25 White Blood Count 29.0th/mm3 (3.8-10.1) Corrected White Blood Count 26.9th/mm3 (3.8-10.1) Red Blood Count 3.24mil/mm3 (3.90-5.20) Hemoglobin 10.2g/dL (12.0-15.6) Hematocrit 32.5% (35.0-46.0) Mean Corpuscular Volume 100.3fL (81-100) Mean Corpuscular Hemoglobin 31.5pg (27.0-35.0) Mean Corpuscular Hemoglobin Concent 31.4% (32.0-37.0) Red Cell Distribution Width 22.1% (12.3-15.4) Platelet Count 46bil/L (150-400) Neutrophils (%) (Auto) 68% (40-74) Lymphocytes (%) (Auto) 8% (14-46) Monocytes (%) (Auto) 5% (4-12) Eosinophils (%) (Auto) 1% (0-5) Basophils (%) (Auto) 1% (0-3) Band Neutrophils % 3% (1-5) Metamyelocytes % 4% (0-0) Myelocytes % 9% (0-0) Blast Cells % 1% (0-0) Nucleated Red Blood Cells 8/100 WBC (0-24) Hematology Comments Rbc Sodium Level 118mEq/L (134-144) Potassium Level 6.4mEq/L (3.5-5.2) Chloride Level 85mEq/L (97-108) Carbon Dioxide Level 19mmol/L (18-29) Blood Urea Nitrogen 35mg/dL (6-24) Creatinine 1.83mg/dL (0.57-1.00) Estimat Glomerular Filtration Rate 43mL/min (>59) Glucose Level 153mg/dL (60-99) Lactic Acid Level 5.1mmol/L (0.4-2.0) Calcium Level 7.5mg/dL (8.5-10.1) Magnesium Level 1.6mg/dL (1.6-2.6) Total Bilirubin 1.3mg/dL (0.0-1.2) Aspartate Amino Transf (AST/SGOT) 138U/L (0-50) Alanine Aminotransferase (ALT/SGPT) 41U/L (0-32) Alkaline Phosphatase 392U/L (25-150) Troponin T 0.010ug/L (0.0-0.011) Total Protein 7.8g/dL (6.4-8.4) Albumin 1.9g/dL (3.4-5.0) Prothrombin Time 15.5sec (8.1-12.5) Prothromb Time International Ratio 1.44ratio Urine Color Yellow (YELLOW) Urine Appearance Clear (CLEAR,HAZY) Urine pH 5.0 (5.0-8.0) Urine Specific Whitefish 1.015 (1.003-1.035) Urine Protein Negativemg/dL (NEG,TRACE) Urine Glucose (UA) Negativemg/dL (NEGATIVE) Urine Ketones Negativemg/dL (NEGATIVE) Urine Occult Blood Negative (NEGATIVE) Urine Nitrite Negative (NEGATIVE) Urine Bilirubin Small (NEGATIVE) Urine Ictotest Negative (Negative) Urine Urobilinogen Normalmg/dL (NORMAL) Urine Leukocyte Esterase Trace (NEGATIVE) Urine RBC 0-2/hpf (0-2) Urine WBC 0-5/hpf (0-5) Urine Epithelial Cells Occasional/hpf (NONE-MOD) Urine Crystals None seen (NONE SEEN) Urine Bacteria Few/hpf (NONE-FEW) Urine Hyaline Casts None/lpf (NONE) Urine Granular Casts None seen (NONE SEEN) Urine Waxy Casts None seen (NONE SEEN) Urine Red Blood Cell Casts None seen (NONE SEEN) Urine White Blood Cell Casts None seen (NONE SEEN) Urine Mucus None seen (None Seen) Urine Trichomonas None seen (NONE SEEN) Urine Yeast None (NONE SEEN) Urinalysis Comment None Urine Culture Reflexed Indicated ECG Interpretation ECG Interpretation: Junctional tachycardia with a rate of 120. Nonspecific intraventricular conduction delay. Low voltage, extremity and precordial leads. Time: 11:14 Interpreted by: ED physician X-Ray Chest Interpretation Chest Xray Interpretation: IMPRESSION: 1. Small right-sided pleural effusion with associated atelectasis. 2. Probable enlargement of the heart with moderate vascular congestion. Please correlate clinically to exclude developing pulmonary edema. Dictated by: Won Thornton M.D. on 04/03/2017 at 10:50 View: Portable, 1 view Interpretation / Wet Read by: Interpret - Radiologist US Abdominal Aorta IMPRESSION: Small amount of ascites present decreased from prior examination. Volume is not sufficient for safe paracentesis. Dictated by: Roland Gomez RRA Interpreted: Chris Randall MD on 04/03/2017 at 12:19 Exam Performed by: Radiologist Re-Eval/Medical Decision Source of Hx: Old records Time of Eval: 11:34 Re-Evaluation/Progress Note: Pt rechecked. Informed pt of plan for admission. Pt understands and agrees with plan for admission. All questions were answered. Consultation #1: Referral / Consult Name: Sea Zhang MD Call Returned at: 12:32 Chief Librarian Work With Blind: Agrees with eval, Agrees with plan Note: Consult with oncology. Discussed pt's case. He will see the pt as the credit consultant. Consultation #2: Referral / Consult Name: John Maciel DO Consulted With: Hospitalist Call Returned at: 13:43 Chief Librarian Work With Blind: Will see patient, Agrees with eval, Agrees with plan, Accepts admit Consultation #3: Referral / Consult Name: Fatou Hoover MD Consulted With: Nephrology Call Returned at: 13:52 Chief Librarian Work With Blind: Agrees with eval, Agrees with plan Note: Discussed pt's case. He recommends 500 mL of Bolus. Counseled Regarding: Diagnosis, Lab results, Need for admission Discharge & Departure Primary Impression: Acute renal failure Acute renal failure type: unspecified Qualified Code: N17.9 - Acute kidney failure, unspecified Additional Impressions: Hyperkalemia Hyponatremia Leukocytosis Metastatic breast cancer Acute urinary retention Disposition: ADMITTED TO HOSPITAL Discharge Condition All VS Reviewed: Yes Condition: Stable Referrals: [facility] Crit Care Except Billable Proc Time Spent: 30-74 minutes Services Performed: Patient management by me, Time spent at bedside, Reviewing test results, Reviewing imaging, Discussing patient care, Documentation in record Scribe Attestation Portions of this note were transcribed by Cassie Clayton. I, Dr. Isaacs personally performed the history, physical exam and medical decision-making; I reviewed and confirmed the accuracy of the information in the transcribed note. Signed by: Mita Serrano, 04/03/17 and 11:50. copies to: [facility] Girish Isaacs MD Apr 03, 2017 10:35 Cassie Gomez Apr 03, 2017 11:07
[2017-04-03 11:30] LABS: Mean Corpuscular Hemoglobin 31.5 pg (27.0-35.0); Mean Corpuscular Volume 100.3 fL (81-100); Platelet Count 46 bil/L (150-400)
[2017-04-03 11:37] LABS: TROPONIN T 0.01 ug/L (0.0-0.011)
[2017-04-03 11:48] LABS: Magnesium 1.6 mg/dL (1.6-2.6)
--- NOTE | 2017-04-03 11:56 | DRSVH ---
PROCEDURE: X-RAY CHEST ONE VIEW, PORTABLE ([id number]) INDICATIONS: Weakness TECHNIQUE: One view of the chest was acquired. COMPARISON: [facility], CR, XR CHEST 1VW (PORTABLE), 01/07/2017, 10:58. FINDINGS: Surgical changes and devices: Left-sided Port-A-Cath central line is again identified, probably uncha nged in position. Lungs and pleura: Suboptimal positioning of the patient results in difficulty evaluating the lung bas es. There is a new area of consolidation along the lateral margin of the right lung base. The diaph ragm on the right is elevated. There may be retro-or airspace disease in left perihilar air space di sease. No definite pneumothorax is appreciated. Mediastinum: Mediastinal contours appear normal. The heart may be enlarged. Bones and chest wall: No suspicious bony lesions. Overlying soft tissues appear unremarkable. IMPRESSION: 1. Small right-sided pleural effusion with associated atelectasis. 2. Probable enlargement of the heart with moderate vascular congestion. Please correlate clinically to exclude developing pulmonary edema. Dictated by: Won Thornton M.D. on 04/03/2017 at 10:50 Approved by: Won Thornton M.D. on 04/03/2017 at 10:55
[2017-04-03 11:59] LABS: BASOPHILS % (AUTO) 1 % (0-3); EOSINOPHILS % (AUTO) 1 % (0-5); MONOCYTES % (AUTO) 5 % (4-12); NEUTROPHILS % (AUTO) 68 % (40-74)
[2017-04-03 12:18] LABS: INR 1.44 ratio
--- NOTE | 2017-04-03 12:33 | DRSVH ---
PROCEDURE: US ABDOMEN, LIMITED ([id number]) INDICATIONS: ascites TECHNIQUE: Real-time focused scanning was performed of the abdomen, with image documentation. COMPARISON: [facility], , ABDOMEN LTD, 03/23/2017, 16:41. FINDINGS: Small amount of ascites present within all the right and left upper quadrants IMPRESSION: Small amount of ascites present decreased from prior examination. Volume is not sufficie nt for safe paracentesis. Dictated by: Roland Gomez [facility] Interpreted: Chris Randall MD on 04/03/2017 at 12:19 Approved by: Chris Randall M.D. on 04/03/2017 at 12:31
[2017-04-03] MEDS ORDERED: 0.9% Sodium Chloride 1,000 ML IV ONE (12:35)
[2017-04-03] MEDS ORDERED: Piperacillin-Tazo 3.375 Gm Inj 3.375 GM in Dextrose 5% Minibag Plus 50 ML IV ONE (12:35)
[2017-04-03 12:55] LABS: APPEARANCE,URINE CLEAR (CLEAR,HAZY); COLOR,URINE YELLOW (YELLOW); OCCULT BLOOD,URINE NEGATIVE (NEGATIVE); UROBILINOGEN,URINE NORMAL (NORMAL)
[2017-04-03 12:56] LABS: ICTOTEST,URINE NEGATIVE (Negative)
[2017-04-03] MEDS ORDERED: oxyCODONE-Acetamin 5-325 mg Tablet PO ONE (13:05)
[2017-04-03] MEDS ORDERED: TROS20TA4 PO (13:22)
[2017-04-03] MEDS ORDERED: LEVO100T6 PO (13:22)
[2017-04-03] MEDS ORDERED: METF1000 PO (13:22)
[2017-04-03] MEDS ORDERED: CHOL100045 PO (13:22)
[2017-04-03] MEDS ORDERED: FURO40TA4 PO (13:22)
[2017-04-03] MEDS ORDERED: CALC-762 PO (13:22)
[2017-04-03] MEDS ORDERED: PROC10TA PO (13:22)
[2017-04-03] MEDS ORDERED: Alum-Mag Hydrox-Simeth 30 mL Suspension PO PRN (13:50)
[2017-04-03] MEDS ORDERED: Polyethylene Glycol (PEG) 17 Gm Powder PO PRN (13:50)
[2017-04-03] MEDS ORDERED: 0.9% Sodium Chloride 1,000 ML IV SCH (13:55)
[2017-04-03] MEDS ORDERED: 0.9% Sodium Chloride 500 ML IV ONE (13:55)
[2017-04-03] MEDS ORDERED: Albuterol 2.5 mg/3 mL Inhalation Solution NEB ONE ×2 (14:40→15:10)
[2017-04-03] MEDS ORDERED: Insulin Human REGular-Omnicell 100 Unit/mL IV ONE (14:40)
[2017-04-03] MEDS ORDERED: Dextrose 10% 250 ML IV ONE ×2 (14:45→18:25)
[2017-04-03] MEDS ORDERED: Dextrose 5% 250 ML IV ONE (14:45)
[2017-04-03 14:53] LABS: Phosphorus 3.7 mg/dL (2.5-4.9)
[2017-04-03 15:13] LABS: Mean Corpuscular Hemoglobin 31.4 pg (27.0-35.0); Mean Corpuscular Volume 101.7 fL (81-100)
[2017-04-03 15:13] LABS: OSMOLALITY, URINE 364 mOs/kH2O (250-1200)
--- NOTE | 2017-04-03 16:07 | DRSVH ---
PROCEDURE: X-RAY KUB ([id number]) INDICATIONS: constipation TECHNIQUE: One view of the abdomen acquired. COMPARISON: None. FINDINGS: Surgical changes and devices: None. Bowel: Bowel gas pattern is poorly seen secondary to patient body habitus. There is gas and stool wit hin cecum.. Soft tissues: No suspicious abdominal calcifications. Visualized solid organ contours appear normal in size. Right upper quadrant surgical clips. Bones: No suspicious bony lesions. IMPRESSION: Study severely degraded secondary to portable technique and the patient's body habitus. G rossly there is no evidence of bowel obstruction. If there is persistent clinical concern for bowel o bstruction recommend abdominal and pelvic CT with contrast. Dictated by: Chris Randall M.D. on 04/03/2017 at 16:04 Approved by: Chris Randall M.D. on 04/03/2017 at 16:05
--- NOTE | 2017-04-03 16:46 | ABG ---
DateTimeAnalyzed 16:39:00 -_ pH ____7.311 - pCO2 ___37.3__ -mmHg pO2 ___38.5__ -mmHg HCO3- ___18.3__ -mmol/L ABE ___-6.8__ -mmol/L tHb ____9.0__ -g/dL O2Hb ___64.6__ -% COHb ____2.2__ -% MetHb ____1.2__ -% sO2 ___66.9__ -% FIO2 ___21.0__ -% Drawn By RN - Date/Time Notified____ 16:45:00 -_ Notified By btl - Notified Whom ___Dr. McCort - B 757 -mmHg tO2 ____8.2__ -Vol% Joey test N/A -
[2017-04-03] MEDS ORDERED: Calcium GLUCO 10% (mEq) Inj 9.3 MEQ in Dextrose 5% 100 ML IV ONE (16:50)
--- NOTE | 2017-04-03 16:53 | DRSVH ---
[facility] [address] [place] [address] Echocardiogram Report Name: SUDHEER PEREZ GStudy Date : 04/03/2017 Height: 70 in Hospital Exam Location: [facility] Weight: 300 lb Gender: Female BSA: 2.5 m2 : 1975 Age: 42 yrs BP: 92/71 mmHg Reason For Study: Hypotension Ordering Physician: Performed By: [facility] H[facility] Interpretation Summary Left ventricular systolic function is normal with the ejection fraction grossly estimated to be 70-75%. There are no obvious focal wall motion abnormalities noted but poor endocardial definition reduces the sensitivity for the detection of such. The left ventricular cavity is small and wall thickness is mildly increased. Cannot assess for LVOT obstruction but there is no obvious anterior motion of the mitral valve leaflet. Diastolic function could not be accurately assessed due to unobtainable data. The right ventricle is not well visualized but grossly appears normal in size with probable normal systolic function. Pulmonary artery pressures cannot be estimated because of the lack of a measurable TR jet velocity. The atria are not well visualized. There is no obvious significant valvular heart disease but sensitivity is decreased because of limited images. There is no pericardial effusion. The patient was in sinus tachycardia with heart rates between 124-143 bpm during the exam. Procedure: A two-dimensional transthoracic echocardiogram with color flow and Doppler was performed. Only parasteral views were obtained due to lack of visualization of anatomy from all other windows. The study quality was technically difficult. The study quality was technically limited. The patient was in sinus tachycardia with heart rates between 124-143 bpm during the exam. Left Ventricle: The left ventricular cavity is small. Left ventricular wall thickness is mildly increased. Cannot assess for LVOT obstruction but there is no obvious anterior motion of the mitral valve leaflet. Left ventricular systolic function is normal without focal wall motion abnormalities. The ejection fraction is estimated to be 70-75%. There are no obvious focal wall motion abnormalities noted but poor endocardial definition reduces the sensitivity for the detection of such. Diastolic function could not be accurately assessed due to unobtainable data. Right Ventricle: The right ventricle is not well visualized. The right ventricle grossly appears normal in size with probable normal systolic function. Atria: The left atrium is not well visualized. Right atrium not well visualized. Mitral Valve: The mitral valve is not well visualized. The mitral valve is grossly normal. There is no mitral regurgitation noted. Aortic Valve: The aortic valve is not well visualized. The aortic valve opens well. No Spectral Doppler obtained of the aortic valve. No aortic regurgitation is present. Tricuspid Valve: The tricuspid valve is not well visualized. The tricuspid valve is not well visualized, but is grossly normal. Pulmonary artery pressures cannot be estimated because of the lack of a measurable TR jet velocity. Pulmonic Valve: The pulmonic valve is not well visualized. There is no significant valvular heart disease. Great Vessels: The aortic root is normal size. The ascending aorta could not be visualized. The inferior vena cava was not visualized. Pericardium/ Pleura There is no pericardial effusion. There is an anterior echo-free space consistent with a fat pad. MMode/2D Measurements & Calculations LVIDd AoV Opening LV ferrera. diameter/BSA LV sys. diameter/BSA : 2.9 cm (cm/m^2): 1.2 (cm/m^2): 0.87 LVIDs Ao root diam : 2.2 cm FS: 25.7 % Aortic Jxn IVSd : 2.5 cm : 1.cm LVPWd : 0.7cm Doppler Measurements & Calculations PA V2 max: 71.0 cm/sec PA V2 mean: 48.7 cm/sec PA mean P.0 mmHg PA Accel Time: 0.14 sec Reading Physician:04:52 PM
[2017-04-03] MEDS ORDERED: Sodium Bicarb 8.4% Inj 150 MEQ in Dextrose 5% 1,000 ML IV SCH (17:15)
--- NOTE | 2017-04-03 17:15 | PCM.HPMED ---
Subjective Date of Service Apr 03, 2017 Primary Provider: Admitting Physician: John Maciel DO Primary Care Physician: Francisco Javier Attending Physician: John Maciel DO Chief Complaint: Progressive weakness. History of Present Illness: Miss Camelia Barahona is a very pleasant 42-year-old lady with a past medical history significant for metastatic triple negative breast cancer, diabetes type II, morbid obesity who presents to the [facility] emergency Department by EMS after worsening progressive weakness over the past week. She reports slowly progressive increase in abdominal girth with associated shortness of breath and abdominal swelling/pressure. She also reports a slowly progressive decrease in ability to urinate and of note she was placed on spironolactone and Lasix as of last week that initially was helpful but as of 23 days ago were ineffective largely. She reports mild constipation for which she drank a lot of prune juice and had 1 episode of loose stools, yesterday. She denies headache, syncope, chest pain, cough, vomiting, fever, chills, abdominal pain with palpation. She reports mild nausea, excessive thirst, positional abdominal pain, decreased urination and constipation with one episode of diarrhea. Patient finished first-line carboplatin/gemcitabine and subsequently a second line docetaxel/Xeloda, and is now on Pembrolizumab (PD-L1) immunotherapy. Metastatic triple negative breast cancer relatively refractory to chemotherapy, her tumor is low expressor of PD L1 with 1-5% expression by immunochemistry. 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 She had previously been on Zometa infusions but was stopped at her most recent oncology clinic visit due to low calcium of 7.6 with a plan to restart in April 08. She is advised to continue calcium plus vitamin D. In the emergency department patient's vitals are as follows; Temperature 37.1 C, pulse 123, respiratory rate 22, blood pressure 91/59, pulse ox 94% on room air. Initial labs white count 29.0, 68% neutrophils, 8% lymphocytes, hemoglobin 10.2 , sodium 118, potassium 6.4, chloride 85, B UN 35, creatinine 1.83, lactic acid 5.1, uric acid 14.4, calcium 7.5, elevated AST and ALTs at 138/41, alkaline phosphatase 392, lactate dehydrogenase 895, albumin 1.9. Urine culture and blood culture 2 pending MRSA swab pending, UA negative. Abdominal ultrasound performed the emergency department that showed very little fluid and not safely removed by paracentesis. Chest x-ray read as possible pulmonary congestion and pulmonary edema. The patient had a Velazquez placed with 2 L urine output. In the emergency department nephrology was consult and. In the emergency department the patient received 2 L of NS, Review of Systems: A comprehensive review of systems was conducted with the patient and found to be negative except as above in the History of Present Illness. Allergies Coded Allergies: No Known Allergies (Verified , 03/23/17) Home Medications Calcium Carbonate/Vitamin D3 (Calcium 1,000 + D3 Caplet) 1 Each Tablet 2 EACH PO HS Cholecalciferol (Vitamin D3) (Vitamin D) 1,000 Unit Capsule 1,000 UNIT PO HS Furosemide (Furosemide) 40 Mg Tablet 40 MG PO HS Gabapentin (Gabapentin) 300 Mg Capsule 900 MG PO HS Levothyroxine (Levothyroxine) 100 Mcg Tablet 100 MG PO QAM Metformin (Glucophage) 1,000 Mg Tablet 1,000 MG PO BID Methadone (Methadone) 5 Mg Tablet 5 MG PO BID Nortriptyline (Nortriptyline) 25 Mg Capsule 25 MG PO HS Spironolactone (Spironolactone) 100 Mg Tablet 100 MG PO DAILY Trospium Chloride (Trospium Chloride) 20 Mg Tablet 20 MG PO BID PMH Breast cancer (metastatic, on chemo) Bladder infection Prolapsed uterus Chronic tachycardia T2DM Hyperthyroidism Surgical History None reported Family History Could not state. Social History Hx Alcohol Use: No Hx Substance Use: No Hx Tobacco Use: Yes Smoking Status: Never Smoker Exam Vital Signs Vital Sign - Last Date Time Temp Pulse Resp B/P Pulse Ox O2 Delivery O2 Flow Rate FiO2 04/03/17 14:11 118 04/03/17 12:29 37.7 20 92/71 98 Nasal Cannula 2 Exam General: Middle-aged obese lady lying in bed, No acute distress, well-developed , appropriately interactive, with a hint of slurred speech. HEENT: Normocephalic, atraumatic. External ears without defect. Pupils equal, round, and reactive to light and accommodation. Post-chemotherapy alopecia. Anicteric sclerae, dry conjunctivae, and no lid lag. Tachycardic Oropharynx free of erythema and cobble stoning with moist mucosa. Neck: Supple with full range of motion. No jugular venous distension. No bruits. No lymphadenopathy or thyromegaly. Cardiovascular: Tachycardic rate and regular rhythm with no murmurs, rubs, or gallops appreciated Pulmonary: Clear to auscultation bilaterally but muffled and difficult to hear with no obvious crackles wheezes or rhonchi. Normal respiratory effort with no use of accessory muscles. Abdomen: Bowel tones present. Soft, there is obese central adiposity with generalized anasarca across the abdomen, nontender, nondistended. No hepatosplenomegaly or masses appreciated. Extremities: No clubbing, cyanosis, mild to moderate nonpitting lower extremity edema, or mild lymphadenopathy along right anterior cervical area or early bruits extended Shakeel appreciated. Skin: Normal temperature, turgor, and texture; no rash, ulcers, or subcutaneous nodules appreciated. Neurological: Cranial nerves grossly intact. Normal muscle strength, tone, and bulk. Reflexes, coordination, and sensory function within normal limits. Difficulty with ambulation due to morbid obesity. Psychiatric: Normal mood and affect. Alert and oriented to person, place, and time. Lab and Diagnostics Labs Item Value Date Time Lactic Acid Level 5.1 mmol/L *H 04/03/17 1045 Uric Acid 14.4 mg/dL H 04/03/17 1045 Calcium Level 7.5 mg/dL L 04/03/17 1045 Phosphorus Level 3.7 mg/dL 04/03/17 1045 Magnesium Level 1.6 mg/dL 04/03/17 1045 Total Bilirubin 1.3 mg/dL H 04/03/17 1045 Aspartate Amino Transf (AST/SGOT) 138 U/L H 04/03/17 1045 Alanine Aminotransferase (ALT/SGPT) 41 U/L H 04/03/17 1045 Alkaline Phosphatase 392 U/L H 04/03/17 1045 Lactate Dehydrogenase 895 U/L H 04/03/17 1045 Troponin T 0.010 ug/L 04/03/17 1045 Total Protein 7.8 g/dL 04/03/17 1045 Albumin 1.9 g/dL L 04/03/17 1045 Result Diagram: 04/03/17 1500 04/03/17 1500 Microbiology Item Value Date Time MRSA (PCR) Received 04/03/17 1527 Nose Pending Urine Culture Received 04/03/17 1225 Urine,Random Pending Blood Culture Received 04/03/17 1155 Blood Aerobic Bottle Pending Blood Culture Received 04/03/17 1045 Blood Aerobic And Anaerobic Bottle Pending X-Rays, CTs and MRIs X-RAY CHEST ONE VIEW, PORTABLE IMPRESSION: 1. Small right-sided pleural effusion with associated atelectasis. 2. Probable enlargement of the heart with moderate vascular congestion. Please correlate clinically to exclude developing pulmonary edema. Dictated by: Won Thornton M.D. on 04/03/2017 at 10:50 US ABDOMEN, LIMITED IMPRESSION: Small amount of ascites present decreased from prior examination. Volume is not sufficient for safe paracentesis. Dictated by: Roland Gomez [facility] Interpreted: Chris Randall MD on 04/03/2017 at 12 :19 X-RAY KUB IMPRESSION: Study severely degraded secondary to portable technique and the patient's body habitus. Grossly there is no evidence of bowel obstruction. If there is persistent clinical concern for bowel obstruction recommend abdominal and pelvic CT with contrast. Dictated by: Chris Randall M.D. on 04/03/2017 at 16:04 Cardiac Echo Impressions Echocardiogram Report Interpretation Summary Left ventricular systolic function is normal with the ejection fraction grossly estimated to be 70-75%. There are no obvious focal wall motion abnormalities noted but poor endocardial definition reduces the sensitivity for the detection of such. The left ventricular cavity is small and wall thickness is mildly increased. Cannot assess for LVOT obstruction but there is no obvious anterior motion of the mitral valve leaflet. Diastolic function could not be accurately assessed due to unobtainable data. The right ventricle is not well visualized but grossly appears normal in size with probable normal systolic function. Pulmonary artery pressures cannot be estimated because of the lack of a measurable TR jet velocity. The atria are not well visualized. There is no obvious significant valvular heart disease but sensitivity is decreased because of limited images. There is no pericardial effusion. The patient was in sinus tachycardia with heart rates between 124-143 bpm during the exam. Reading Physician:04:52 PM Assessment & Plan Miss Camelia Barahona is a very pleasant 42-year-old lady with a past medical history significant for metastatic triple negative breast cancer, diabetes type II, morbid obesity who presents to the [facility] emergency Department by EMS after worsening progressive weakness over the past week. She reports slowly progressive increase in abdominal girth with associated shortness of breath and abdominal swelling/pressure. She also reports a slowly progressive decrease in ability to urinate and of note she was placed on spironolactone and Lasix as of last week that initially was helpful but as of 23 days ago were ineffective largely. She reports mild constipation for which she drank a lot of prune juice and had 1 episode of loose stools, yesterday. She denies headache, syncope, chest pain, cough, vomiting, fever, chills, abdominal pain with palpation. She reports mild nausea, excessive thirst, positional abdominal pain, decreased urination and constipation with one episode of diarrhea. Patient finished first-line carboplatin/gemcitabine and subsequently a second line docetaxel/Xeloda, and is now on Pembrolizumab (PD-L1) immunotherapy. Metastatic triple negative breast cancer relatively refractory to chemotherapy, her tumor is low expressor of PD L1 with 1-5% expression by immunochemistry. 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 She had previously been on Zometa infusions but was stopped at her most recent oncology clinic visit due to low calcium of 7.6 with a plan to restart in April 08. She is advised to continue calcium plus vitamin D. Patient was transferred to the ICU in stable condition. Acute Hyperkalemia, present on admission. Active. - Potassium on admission 6.4. - EKG showed low voltage. - Echo was negative for pericardial effusions or tamponade. - Albuterol nebulizer 20 mg given. - 10 units regular given with D10 running concurrently. - We will repeat labs every 4 hours. - CCU team consulted. Triple negative metastatic breast cancer, present on admission. Active. - Dr. Jay with oncology is patient's outpatient oncologist, Dr. Palacios is currently seeing the patient. Hyponatremia, present on admission. Active. - Sodium 118 on admission. - Patient received 2 L of NS. - Will continue Fluids NS @ 100, recheck Q4 hours, Avoid rapid correction of >4- 6 mEq/L in 6hours and >10 mEq/L per 24 hours. - Urine osmol 364, Urine sodium <10, Serum sodium 120, Serum osmol 281, Acute kidney injury, present on admission. Active. - Creatinine 1.79 on admission, with unknown baseline. - Associated elevated uric acid at 14.4. - Continue IV fluids. Lactic acidosis, present on admission. Active. - Lactic acid on admission 5.1, on repeat 4.3. - Will trend Q2H till Lactic acid < 2. - Will continue IV fluids. Acute urinary retention, present on admission. Active. - Patient had 2 L urine out with straight cath. - Plan to order renal ultrasound. Leukocytosis, present on admission. Active. - White count on admission 25.9. - Patient's previous admissions with white count as high as 65.7. - From previous oncology prog notes: Differential for the patient's neutrophilia includes a leukemoid reaction from underlying infection, myelopthysis process from disease progression within the marrow, secondary myeloid neoplasia from previous chemotherapy exposure (MDS, Acute Leukemia), and finally demargination from prechemotherapy steroids. Morbid obesity, present on admission. Active. Protein malnutrition, present on admission. Active. - We will consider adding albumin. Hypothyroidism, present on admission. Controlled. - Continue home synthroid. Diabetes Type II, present on admission. Active. - Medium dose, nutritional and correctional insulin. - Holding home metformin. Acetaminophen for mild pain when necessary. Bowel regimen Senna and MiraLAX scheduled and PRN. Zofran when necessary for nausea and vomiting. SubQ heparin held for now. SCDs in place. High-risk medications: Disposition: Likely here for > 2 midnights. Dependent upon laboratory findings. Will be discharged to home when medically stable. Pain Evaluation: Adequate Pain Control Resuscitation Status: CPR: Attempt Resuscitation Time spent 65 minutes Attending Statement Patient was seen and evaluated by myself in addition a directly supervised care provided by resident physician, I agree with above documentation. This is a very unfortunate 42-year-old female past medical history most significant for metastatic triple negative breast cancer which is metastasized rapidly in spite of multiple rounds of chemotherapy and subsequent immunotherapy. Her presenting complaint of weakness is likely multifactorial related to electrolyte imbalance, straight of progressive cancer, in addition to possible other K factors such as tumor lysis syndrome or hepatorenal. We will treat electrolyte imbalances and medical symptoms as able to ensure patient is provided optimal level of comfort possible in addition to intervene and underlying conditions as much as we are able. Nonetheless given patient's extremely poor prognosis, treatment will be targeting mainly palliation of symptoms and patient comfort rather than more aggressive interventions which may only cause further discomfort without offering realistic chance that prolong meaningful quality of life. This was discussed at length with patient who is in agreement with plan, we are appreciating the assistance from multiple consultants related to renal failure and electrolyte imbalance , metabolic acidosis and of course this severe progressive metastatic disease. RANULFO KUMAR DO Apr 03, 2017 17:15 John Maciel DO Apr 05, 2017 12:42
--- NOTE | 2017-04-03 18:12 | PCM.CHPMED ---
Subjective Date of Service: Apr 03, 2017 Provider requesting consult: John Maciel DO Primary Physician: Admitting Physician: John Maciel DO Primary Care Physician: Francisco Javier Attending Physician: John Maciel DO Admit Status: From the Emergency Department Chief Complaint: Chief Complaint: Worsening bilateral leg weakness History of Present Illness: Pulmonary Critical care consult Patient is a 42-year-old female with past medical history remarkable for metastatic breast cancer refractory to first and second line chemotherapy as well as type II diabetes who presents to [facility] with worsening bilateral lower extremity weakness. The patient states that this problem has been ongoing for the last 2 weeks. She denies difficulty with moving her arms at this time. The patient was started on immune modulating therapy with a monoclonal antibody which stimulates T cells on March 27. The patient was also started on spironolactone and Lasix daily for worsening abdominal ascites secondary to liver metastases. The patient was unable to get a bone scan because of abdominal ascites causing shortness of breath due to increased diaphragmatic pressure when lying flat. The patient states that over the last 2 days she has noticed significant abdominal distention with difficulty emptying her bladder. The patient denies fever or chills, shortness of breath standing or sitting up, lower abdominal pain, worsening dysuria, unusual bruising or bleeding. Review of Systems: A comprehensive review of systems was obtained and all are negative except for what is included in the history of present illness PMH Past Medical History Metastatic triple negative breast cancer refractory to first and second line chemotherapy currently on immunotherapy Recurrent Bladder infections Recent hyperactive bladder Prolapsed uterus Chronic tachycardia Type II diabetes mellitus Abdominal ascites secondary to liver metastasis Bedside Blood Glucose: 157 Surgical History - Tunneled left subclavian central venous catheter with power port in 10/2016 - Right skin sparing modified radical mastectomy, left skin sparing mastectomy with left axillary lymph node biopsy in 12/2015 - Left benign lumpectomy in 1992. - Cholecystectomy. - Excision of infected ovarian cyst in 2007. - Surgery on the left leg and ankle for a fracture and dislocated joint in 2005 - Abdominal hernia surgery 3 Home Medications Calcium Carbonate/Vitamin D3 2 EACH PO HS Cholecalciferol 1,000 UNIT PO HS Furosemide 40 MG PO HS Gabapentin 900 MG PO HS Levothyroxine 100 MG PO QAM Metformin 1,000 MG PO BID Methadone 5 MG PO BID Nortriptyline 25 MG PO HS Spironolactone 100 MG PO DAILY Trospium Chloride 20 MG PO BID pembrolizumab immunotherapy 200 mg IV every three weeks started on on March 27 Allergies: Coded Allergies: No Known Allergies (Verified , 03/23/17) Family History Family History Patient's father had a heart attack in his 40s Paternal aunt had triple vessel CABG Patient's mother had hepatitis c from a blood transfusion in the 1980s, and developed liver cancer (likely hepatocellular carcinoma) Social History Occupation: currently not workingHx Alcohol Use: NoHx Substance Use: NoHx Tobacco Use: Yes Smoking Status: Former Smoker (15 pack years, quit 7 years ago) Living Arrangement: with Family (daughter) Exam Vital Signs Vital Sign - Last Date Time Temp Pulse Resp B/P Pulse Ox O2 Delivery O2 Flow Rate FiO2 04/03/17 14:11 118 04/03/17 12:29 37.7 20 92/71 98 Nasal Cannula 2 Additional Information: Gen.: Middle-aged obese female appearing chronically ill, in no acute distress Eyes: Pupils equal round reactive to light, extraocular motion intact, anicteric sclerae, noninjected conjunctiva HENT: Normocephalic atraumatic, moist mucous membranes without central cyanosis , oropharynx clear without cobblestoning mucosa Neck: Supple, trachea midline, no thyromegaly Cardiovascular: tachycardia, no murmurs rubs or gallops noted however difficult to auscultate given body habitus and ICU background sounds Lungs: decreased breath sounds in the left lower base with course sounds noted in the left lower posterior and axillary lung magaña, relatively clear to auscultation in all other magaña bilaterally without wheezing rhonchi Abdomen: Distended, tympanic to percussion normoactive bowel sounds, nontender, unable to assess organomegaly due to body habitus Extremities: Cyanosis of bilateral toes, cold lower extremities, difficult to palpate pulses at both radial and dorsalis pedis and posterior tibialis, mild pitting edema noted in lower extremities bilaterally : Velazquez in place draining dark urine Skin: Warm and dry Neuro: Nonfocal cranial nerve exam, slurred speak described as baseline by family due to dry mouth, Able to move all extremities, Weak lower extremities bilaterally in both hip flexion and knee flexion Psych: Normal mood and affect, alert and oriented 3 Lab and Diagnostics Result Diagram: 04/03/17 1500 04/03/17 1500 X-Rays, CTs and MRIs X-RAY KUB ([id number]) IMPRESSION: Study severely degraded secondary to portable technique and the patient's body habitus. Grossly there is no evidence of bowel obstruction. If there is persistent clinical concern for bowel obstruction recommend abdominal and pelvic CT with contrast. Dictated by: Chris Randall M.D. on 04/03/2017 at 16:04 Approved by: Chris Randall M.D. on 04/03/2017 at 16:05 US ABDOMEN, LIMITED ([id number]) IMPRESSION: Small amount of ascites present decreased from prior examination. Volume is not sufficient for safe paracentesis. Dictated by: Roland Gomez RRA Interpreted: Chris Randall MD on 04/03/2017 at 12 :19 Approved by: Chris Randall M.D. on 04/03/2017 at 12:31 X-RAY CHEST ONE VIEW, PORTABLE ([id number]) IMPRESSION: 1. Small right-sided pleural effusion with associated atelectasis. 2. Probable enlargement of the heart with moderate vascular congestion. Please correlate clinically to exclude developing pulmonary edema. Dictated by: Won Thornton M.D. on 04/03/2017 at 10:50 Approved by: Won Thornton M.D. on 04/03/2017 at 10:55 Additional Diagnostics: Echocardiogram Report Interpretation Summary Left ventricular systolic function is normal with the ejection fraction grossly estimated to be 70-75%. There are no obvious focal wall motion abnormalities noted but poor endocardial definition reduces the sensitivity for the detection of such. The left ventricular cavity is small and wall thickness is mildly increased. Cannot assess for LVOT obstruction but there is no obvious anterior motion of the mitral valve leaflet. Diastolic function could not be accurately assessed due to unobtainable data. The right ventricle is not well visualized but grossly appears normal in size with probable normal systolic function. Pulmonary artery pressures cannot be estimated because of the lack of a measurable TR jet velocity. The atria are not well visualized. There is no obvious significant valvular heart disease but sensitivity is decreased because of limited images. There is no pericardial effusion. The patient was in sinus tachycardia with heart rates between 124-143 bpm during the exam. Reading Physician:04:52 PM Assessment & Plan Assessment The patient is a 42-year-old lady with a past medical history significant for metastatic triple negative breast cancer refractory to first and second line chemotherapy, diabetes type II, morbid obesity who presents to the [facility] emergency Department by EMS after worsening progressive weakness over the past week. Acute Hyperkalemia - Potassium on admission 6.4, with repeat potassium to 6.5 prior to the below treatment plan - EKG showed low voltage. - Echo was negative for wall motion abnormalities pericardial effusions or tamponade. - Albuterol nebulizer 20 mg given. - 10 units regular given with D10 running concurrently. - Kayexalate given - repeat labs every 4 hours. Acute Hyponatremia - Sodium 118 on admission. - Patient received 2 L of NS. - Discontinue normal saline - Convert IV fluids to D5W with 3 A of bicarbonate at 80 ML's per hour to correct hyperkalemia secondary to uric and lactic acidosis - recheck Q4 hours, Avoid rapid correction of >4-6 mEq/L in 6hours and >10 mEq/ L per 24 hours. Acute kidney injury secondary to acute urinary retention - Patient had 2 L urine out with straight cath. - Creatinine 1.79 on admission, with baseline typically between 0.5 and 0.8 - Associated elevated uric acid at 14.4. - Likely secondary to urinary obstruction given 2 L urinary output after catheterization - IV fluid resuscitation described above continue to monitor with routine BMPs - Renal ultrasound completed and currently awaiting repeat - Initial urine sodium shows significantly known low less than 10 Acute Lactic acidosis - Lactic acid on admission 5.1, on repeat 4.3. - Will trend Q4H till Lactic acid < 2. - Will continue IV fluids described above - Patient does not appear acutely infectious at this time however the patient will be started on cefepime given noted leukocytosis described below Acute lower extremity weakness - Review of imaging studies fails to demonstrate a underlying tumor lesion causing nerve compression however given the patient's lower extremity weakness and possible neurogenic bladder the patient will be started on steroids per oncology recommendations - Dexamethasone 4 mg oral twice a day Acute hyperuricemia - Possibly secondary to tumor lysis syndrome - A discussion was held with Dr. Palacios who believes that this is possibly a rare but unlikely tumor lysis syndrome in a solid tumor secondary to diffuse extensive tumor burden outgrowing blood supply - Allopurinol 200 mg twice a day adjusted for renal clearance after discussion with pharmacology secondary to acute kidney injury - Continue to monitor Acute Leukocytosis, anemia and thrombocytopenia - White count on admission 25.9., platelets and RBC low - Patient's previous admissions with white count as high as 65.7. - From previous oncology prog notes: Differential for the patient's neutrophilia includes a leukemoid reaction from underlying infection, myelopthysis process from disease progression within the marrow, secondary myeloid neoplasia from previous chemotherapy exposure (MDS, Acute Leukemia), and finally demargination from prechemotherapy steroids. - The patient is not appearing acutely infectious at this time however given elevated pro calcitonin above 6 cefepime IV 2 g every 8 will be initiated to cover for possible gram-positive gram-negative and pseudomonas given his immunocompromised state - De-escalate antibiotics as soon as possible - monitor platelets [place] transf[place] [id number] - monitor RBC and transfuse with HB below 7 Acute elevation in liver enzymes - includes bilirubin, AST, ALT, alkaline phosphatase - Likely secondary to liver metastases however significant elevation noted recently, this could possibly be consistent with significant advancement of tumor burden resulting in the above-described tumor lysis - Patient denies abdominal complaints at this time including pain, nausea, vomiting - Low threshold for CT imaging however this patient is a poor surgical candidate at this time Triple negative metastatic breast cancer, present on admission. Active. - Dr. Jay with oncology is patient's outpatient oncologist, Dr. Palacios is currently seeing the patient - Very poor prognosis Protein malnutrition - We will consider adding albumin after correction of electrolytes given that IV axis is currently through the patient's port limiting concomitant IV administration Hypothyroidism - Dr. Palacios notes that the patient's TSH was significantly elevated when last checked - possibly a complication of the immunotherapy - levothyroxine 100 g daily DVT prophylaxis is SCD given the low platelets Problems: Pain Evaluation: Adequate Pain Control Resuscitation Status: DNR/DNI:Do Not Resuscitate/Intubate Attending Statement I have seen and examined this patient with the resident physician. Vital signs , labs, imaging have been reviewed. I agree with the assessment and plan above. Please refer to my separately dictated progress note for any modifications to above. Raiza Yin M.D. Pulmonary and Critical Care medicine Pager [phone] Jacky Jacobs DO Apr 03, 2017 18:12 Raiza Yin MD Apr 08, 2017 08:32
[2017-04-03] MEDS ORDERED: Glucose 40% Oral Gel 15 Gm Tube PO PRN (18:25)
[2017-04-03] MEDS: Cefepime Inj 2,000 MG in Dextrose 5% Minibag Plus 100 ML IV SCH (18:30)
--- NOTE | 2017-04-03 18:31 | DRSVH ---
PROCEDURE: US RENAL SONOGRAM INDICATIONS: GUS TECHNIQUE: Real-time scanning was performed of the kidneys and bladder, with image documentation. COMPARISON: None. FINDINGS: Kidneys: Kidneys are normal in size. Right kidney measures 9.8 cm long; left kidney measures 11.9 c m long. Right renal cortical thickness is 1.4 cm; left renal cortical thickness is 1.5 cm. Renal co rtical echotexture is normal. No hydronephrosis or nephrolithiasis. No suspicious solid mass lesion s. Bladder: The bladder is not effectively visualize or assessed due to Velazquez catheter in place almost completely draining the bladder lumen. Miscellaneous: No free pelvic fluid. IMPRESSION: A no hydronephrosis or nephrolithiasis. Study quality somewhat limited by large patient body habitus. Velazquez catheter empties the bladder lumen. Dictated by: Willem Laboy M.D. on 04/03/2017 at 18:29 Approved by: Willem Laboy M.D. on 04/03/2017 at 18:30
[2017-04-03] MEDS ORDERED: Dextrose 10% 250 ML IV PRN (18:35)
--- NOTE | 2017-04-03 18:37 | CONS ---
[address] [address] CONSULTATION REPORT PATIENT: SUDHEER PEREZ : 1975 MR#: [id number] ADMIT: 04/03/2017 JOB ID: [id number] DATE OF SERVICE: 04/03/2017 PULMONARY CRITICAL CARE CONSULTATION: The patient is a 42-year-old woman seen in consultation at the request of Dr. Braga for evaluation of hypotension, severe hyperkalemia. The patient was seen and evaluated with resident physician, Jacky Jacobs DO. Please refer to his separate detailed note for additional information. HISTORY OF PRESENT ILLNESS: The patient is a 42-year-old woman with morbid obesity and diabetes who has metastatic breast cancer that was diagnosed in June 2015. She is followed by Dr. Jay as an outpatient. She presented with metastatic triple negative breast cancer for which she had bilateral mastectomy in December 2015. She completed chemoradiation and had a relapse in July 2016 for which she was initially treated with carboplatin and gemcitabine. She had progression of disease despite this regimen and then had second-line therapy with docetaxel and Xeloda. She still had progression of disease and so recently on March 27 she received her first dose of KEYTRUDA, or pembrolizumab. Her course has been complicated by increasing abdominal distention with some ascites, however the ascites has been too small to tap and she was started on Lasix and spironolactone about 10 days ago in the emergency department. She presented to the emergency department today with worsening severe weakness as well as shortness of breath. She says in the last few days her weakness has gotten dramatically worse. Previously she could walk to the bathroom and now she can barely get out of bed without significant assistance. She has also had increased shortness of breath and is unable to lay flat. She attributes this to her belly pushing against her chest and feels that if she is sitting upright she feels "fine." In the emergency department she was also hypotensive in the 80s. This has improved with IV fluids and she is now in the 100s systolic. She is tachycardic in the 120s. She is alert and appropriate and denies any chest pain, fever, chills, sweats, abdominal pain, nausea, vomiting, diarrhea. In the ER, she had severe electrolyte abnormalities with sodium of 118, potassium of 6.4, creatinine up to 1.8, lactate of 4, calcium of 7.1. Past medical history, social history, family history, and review of systems as per Dr. Jacobs' note, but briefly: PAST MEDICAL HISTORY: 1. Metastatic breast cancer diagnosed June [address] as detailed [address] Jay. 2. Type 2 diabetes. 3. Morbid obesity. PHYSICAL EXAMINATION: Temperature 37.7, pulse 118, respirations 20, BP 92/71, sats 98% on 2 L nasal cannula. General: Morbidly obese woman, lying in bed. She is alert, oriented, appropriate, and in no distress at the moment. Chest: Clear to auscultation anteriorly with some decreased breath sounds at the right lung base. Heart: Regular rate/rhythm but tachycardic. Abdomen: Distended and large, and slightly firm, but nontender. Extremities: She has dusky looking toes and anasarca with about 2+ edema. LABORATORY: Reviewed and notable for numerous abnormalities. WBC 29, hemoglobin 9.2, platelets 41. Chemistry notable for sodium 118, potassium 6.4, bicarb of 20, creatinine 1.8. Serum osmolality 281. Serum lactate 5.1 initially. Calcium 7.1. Liver enzymes are also elevated. Cultures pending at this time. IMAGING: Chest x-ray shows a right pleural effusion that to my eye appears slightly loculated, but it is hard to tell because the patient had this imaging done lying partly on her side. Abdominal ultrasound does not show enough fluid to tap. ASSESSMENT: 1. Hypotension. 2. Severe hyperkalemia. 3. Hyponatremia. 4. Acute kidney injury. 5. Systemic inflammatory response syndrome (SIRS). 6. Transaminitis. 7. Metastatic breast cancer with relapse, most recently on KEYTRUDA (pembrolizumab). RECOMMENDATIONS: This complex 42-year-old woman with diabetes, morbid obesity, and metastatic breast cancer with relapse, now on third-line chemotherapy with KEYTRUDA, is presenting with increasing abdominal distention, worsening weakness, and numerous electrolyte abnormalities, with acute kidney injury. With regard to electrolytes, we are working on slowly correcting the sodium. There is a question of tumor lysis syndrome as an underlying etiology of this, with her uric acid of 14.4. We are going to switch her from normal saline to sodium bicarb 3 amps in 1 L of sterile water or D5 water. We need to follow her sodium closely to make sure we do not correct too quickly and we will check this every 4 hours. With regard to the elevated uric acid, I suppose tumor lysis syndrome is possible, although it would be a pretty dramatic response. I spoke with Dr. Palacios, who agreed with alkalinizing her urine as above with the bicarb. He is also considering allopurinol and other medications but he will decide on this after he evaluates the patient. I am also considering the possibility of sepsis. We requested a procalcitonin. Cultures are pending. I think it would be reasonable to put her on broad-spectrum antibiotics at this time until we know a little bit more. We can always discontinue these. I have a blood gas pending to see if she has any acidosis that would explain the hyperkalemia, but I think the bicarb drip would help as well. We are going to give her some IV calcium gluconate, insulin, and D50 to try to correct this as well. If she becomes hypotensive again, I would repeat IV fluids. Because of her thrombocytopenia, I think we should avoid DVT prophylaxis. TIME: Critical care time 60 minutes.
--- NOTE | 2017-04-03 19:11 | NUR ---
P: hypotension I: Received pt from PCU to CCU. Leonides cath accessed 1700cc of NS infused. Sodium bicarb gtt started. Echo done, KUB done, US of kidneys. Calcium gluconate infused. Velazquez patent and drained dark era urine. 2L/NC with sats stable. Groins have yeast. Afebrile. Blood sugar 157. Insulin regular 10 units IV given and 250cc of D10. Kayexalate po given. Pt Velazquez drained 1200 in ED. E: Stable S: Uses call light appropriately. Frequent rounding.
--- NOTE | 2017-04-03 20:30 | CCS NOTE ---
[facility] [address] [address] MEDICAL ONCOLOGY OFFICE NOTE PATIENT: SUDHEER PEREZ : 1975 MR#: [id number] DATE: 04/03/2017 JOB ID: [id number] DATE: 04/03/2017 HISTORY OF PRESENT ILLNESS: I was notified by the emergency department and critical care team about the admission of this 42-year-old, unfortunate lady with metastatic breast cancer who is under the care of Dr. Jay who is currently out of town. The patient has presented to the ER with severe "weakness" that has been getting worse over the past two weeks to the point that she could not ambulate. Her sister, who is in the room, arranged for her to come to the emergency department. On review of Dr. Jay's previous records, the patient has had a very unfortunate and aggressive course of triple receptor negative breast cancer in the setting of several comorbidities including severe and morbid obesity and diabetes with a body mass index of 51. She was initially diagnosed with breast cancer in June 2015 with an aggressively growing right axillary adenopathy and had preoperative chemotherapy with dose dense AC followed by 12 weekly doses of Taxol, then surgery in December 2015. At that time, still residual extensive metastatic bo disease in the right axilla suggesting that her disease was fairly chemotherapy refractory. She received adjuvant radiation and shortly thereafter presented in July 2016 with diffuse metastatic disease involving the skeletal system and adenopathy in the mediastinum and abdomen. She has been treated with two separate lines of chemotherapy in the recurrent metastatic setting, initially with carboplatin and gemcitabine, with further worsening of severe cytopenias likely due to bone marrow metastases, and therefore, since that regimen was particularly myelosuppressive, it was switched to Xeloda combined with Taxotere of which she received an additional four cycles. The most recent imaging of March 09, 2017, showed disease progression with new hepatic metastases, presence of ascites. She was not able to lay flat on her back enough to do the bone scan that had to be canceled. The most recent bone scan that she was able to complete was from December 15, 2016, showing diffuse metastatic disease involving all long bones as well as central skeletal structures including the hips and cervical through lumbar spine. On March 25, she was empirically started on immunotherapy with pembrolizumab which is an anti- PD1 antibody at 200 mg IV. Her tumor was tested for PD-L1 expression and was rather low and this was used as a last resort. She presents with severe laboratory derangements in the ER with a sodium of 118, potassium of 6.4, new abnormal creatinine of 1.8, elevated lactic acid and severely elevated uric acid, as well as liver enzymes abnormality. 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 On evaluation in the ICU, the patient is accompanied by her sister. A Velazquez catheter has been placed and she had about a liter of urine retained in the bladder. She denies any pain in the lumbar spine but rather pain in the epigastric area and severe overall weakness, but she feels that her legs are weaker than her arms. She has not had any nausea, vomiting, and no fevers or chills at home. Here her vitals show a temperature of 37.7. She is tachycardic with a pulse around 125-130 and rather low blood pressure in the 80s and 90s systolic. O2 sat 94% on room air. Currently on 2 L. She is morbidly obese. Has significantly swollen abdomen and edema in her legs. She is able to slightly bend her knees while laying on her back but fairly limited in function and is not able to turn in bed. Because of the fluid retention, she has been started on diuretics with furosemide 40 mg daily and spironolactone 100 mg daily. She is also as an outpatient on gabapentin, methadone, levothyroxine 100 mcg, metformin 1000 mg b.i.d., and atorvastatin. LABORATORY: Her TSH of March 25 was severely elevated with 50. Note that this was before administration of pembrolizumab. Previous free T4 of February 25, however, was in normal range with 1.27. CBC shows a white count of 29 with a left shift with 68% neutrophils, 3 bands, 4 metamyelocytes, 9 myelocytes, and 1% blasts. Hemoglobin 10, platelets 46. Chemistry with a sodium of 118, potassium 6.4, BUN 35, creatinine 1.83. Bilirubin 1.3. Alk phos 395. LDH 895. Albumin only 1.9. CA27.29 on March 25 was 112, not much change compared to previous recent readings. ASSESSMENT AND PLAN: Unfortunate 42-year-old lady with a highly aggressive triple receptor negative, metastatic breast cancer that has been pretty much refractory to treatment. She has been exposed to a large number of chemotherapeutic agents and is managed by Dr. Jay, who is currently out of town and I was asked to evaluate her. In the neoadjuvant setting, she has been exposed to Adriamycin, Cytoxan, and Taxol, but had extensive residual disease at the time of mastectomy in the axilla and she has been exposed to carboplatin, gemcitabine, Taxotere, and Xeloda since presentation with metastatic disease in July 2016. She has had a recent CT of chest, abdomen, and pelvis of March 09, which I personally reviewed with Dr. Sal of Radiology. The last bone scan that she was able to complete is from December. She has diffuse disease with miliary distribution in the entire skeletal system. In review of the CT scan with particular attention to the spine, there was no obvious dominant mass that would be impending in regard to cord compression or vertebral destruction on that CT scan of three weeks ago. The patient cannot lie flat or position herself long enough to get an MRI at this point. She is admitted with generalized weakness, inability to ambulate, worsening fluid retention in her abdomen and legs, and dramatic lab abnormalities including severe hyponatremia, hyperkalemia, acute renal failure, as well as lactic acidosis, and severely elevated uric acid, along with liver enzyme abnormalities. 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 She has received a single dose of pembrolizumab as anti-PD1 antibody on March 27, 2017. I do not believe that the current situation can be explained as toxicity of that agent since this was administered just seven days ago and this does not work like a cytotoxic agent. The mechanism of action is due to mounting immune response of T-cell against the antigen of the cancer cells that will take some time to build up. The main side effect of this agent that usually gradually occurs could be endocrinopathies, among others. The current situation has a broad differential diagnosis, including infectious process versus a rare but certainly possible spontaneous tumor lysis due to aggressiveness of her tumor causing the electrolytes and uric acid abnormalities. The spinal cord compression appears less likely based on the imaging that we reviewed from March 09. There is deemed not to be any dominant mass, although we cannot entirely exclude that. At this point, she is not able to undergo an MRI. I had a longer conversation with the patient and her sister regarding this is very concerning situation as well as with the hospitalist team and Dr. Yin of pulmonary critical care. I recommended to start her on a bicarbonate drip to alkalinize her urine as well as start her on the renally adjusted dose of allopurinol. We are also going to empirically start her on dexamethasone 4 mg twice daily in case she had any spinal process and the steroids might help improve some of the inflammatory reaction. In addition, I discussed limits of care and recommended to consider changing her code status from currently full code to DNR/DNI, explaining the implications of a resuscitation attempt in this dismal situation. The sister and the patient had a good understanding and they both agreed that the code status be changed to DNR/DNI. A component of prerenal azotemia and urinary retention might play a role given the attempts of diuresis with Lasix and spironolactone, as well as the fact that she had about a liter of urine in the bladder when catheter was placed. Supportive care will continue at this point. However, I discussed with the family that if the situation does not turn around meaningfully, a transition to Palliative Care might be considered in her future, and I leave that to Dr. Jay to further discuss with the family upon his return. Approximately 1 hour and 10 minutes were spent in counseling and coordination of care.
[2017-04-03] MEDS ORDERED: Albumin 25% 25 GM in IV Premix 1 EACH IV ONE (20:35)
[2017-04-03] MEDS: HYDROcodone-APAP 5-325 mg Tablet PO PRN ×2 (20:36→21:50)
[2017-04-03] MEDS: Insulin LISPRO 300 Unit/3 mL Inj SUBQ SCH (20:36)
[2017-04-04] VITALS (8 sets, daily range): BP systolic 88–136; BP diastolic 52–86; PULSE 105–112; RESP 12–16; O2SAT 96–100
[2017-04-04] MEDS ORDERED: SODIUM BICARB IV SCH (00:25)
[2017-04-04] MEDS ORDERED: DEXTROSE IV SCH (00:25)
[2017-04-04] MEDS ORDERED: NACL IV SCH (00:25)
[2017-04-04] MEDS: Cefepime Inj 2,000 MG in Dextrose 5% Minibag Plus 100 ML IV SCH ×4 (01:51→23:50)
[2017-04-04] MEDS ORDERED: Insulin Human REGular 300 Unit/3 mL Inj IV ONE ×2 (02:30→05:35)
[2017-04-04 04:34] LABS: Platelet Count 33 bil/L (150-400)
[2017-04-04 04:49] LABS: NEUTROPHILS % (AUTO) 63 % (40-74)
[2017-04-04 04:50] LABS: BASOPHILS % (AUTO) 1 % (0-3); EOSINOPHILS % (AUTO) 0 % (0-5); MONOCYTES % (AUTO) 4 % (4-12)
[2017-04-04 05:05] LABS: Magnesium 1.6 mg/dL (1.6-2.6); Phosphorus 3.5 mg/dL (2.5-4.9)
--- NOTE | 2017-04-04 05:47 | NUR ---
Hyponatremia/Hyperkalemia/Pain P: starting of shift Na was 120, on D5W+3 amps bicarb @ 80/hr, Pt c/o generalized body pain, pt stated unable to tolerate laying on left side. I: switched IVF to D5 1/2NS + 3amps bicarb @ 80 ml/hr, given insulin 5units IV x 2. Given norco prn. E: AM labs with Plt 33, K+ 6.2, lactic 4.7, Na 117, effective pain control, BP stable. HR from [address]
[2017-04-04] MEDS: Insulin LISPRO 300 Unit/3 mL Inj SUBQ SCH ×4 (09:20→21:15)
[2017-04-04] MEDS: Tolterodine ER 2 mg ER24 Capsule PO SCH (09:21)
[2017-04-04] MEDS ORDERED: HepLOK Flush 100 unit/mL 5 mL Inj IVFLUSH PRN (10:20)
[2017-04-04] MEDS ORDERED: Sodium Chloride LOK Flush 10 mL Syringe IVFLUSH PRN ×2 (10:20)
[2017-04-04] MEDS ORDERED: Methylnaltrexone 12 mg/0.6 mL Inj SUBQ ONE (10:30)
[2017-04-04] MEDS: 0.9% Sodium Chloride 250 ML IV SCH (10:44)
[2017-04-04] MEDS ORDERED: Furosemide 10 mg/mL 4 mL Inj IVPUSH SCH (10:44)
[2017-04-04] MEDS ORDERED: Albuterol 2.5 mg/3 mL Inhalation Solution NEB ONE (10:50)
[2017-04-04] MEDS: Furosemide 10 mg/mL 4 mL Inj IVPUSH SCH ×2 (11:11→21:17)
[2017-04-04] MEDS: Albumin 25% 25 GM in IV Premix 1 EACH IV SCH ×2 (11:12→19:23)
--- NOTE | 2017-04-04 11:14 | NUR ---
NUTRITION ASSESSMENT: ASSESS:42 YO female admitted to CCU with worsening bilateral leg weakness that has progressed over the past two weeks to the point of inability to ambulate. There is worsening fluid retention in her abdomen and legs, with dramatic lab abnormalities, including severe hyponatremia, hyperkalemia, acute renal failure, as well as lactic acidosis and severely elevated uric acid, along with liver enzyme abnormalities. 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 This is an unfortunate case of aggressive triple receptor negative breast cancer in the setting of several comorbidities, including severe and morbid obesity and diabetes with a body mass index of 51. She has diffuse disease with miliary distribution in the entire skeletal system. She has been exposed to a large number of chemotherapeutic agents. Code status changed to DNR / DNI following conversation with oncology regarding poor prognosis. PMHx:Metastatic breast cancer diagnosed June 2015 as detailed above, followed Dr. Jay; type 2 diabetes, Class III obesity. DIET:NPO. LABS: Reviewed. Na 117, K+ 6.2, Chloride 84, BUN 38m, Cr 1.95, Glu 213, Lactic Acid 4.5, Uric acid 14.0, Ca 7.0, Procalcitonin 7.42. MEDICATIONS: Reviewed. Lasix, synthroid, albumin. NUTRITION FOCUSED PHYSICAL ASSESSMENT: GI symptoms / stool: No stool reported.Kye: 14. Skin Integrity: Pt. is at risk for skin breakdown due to significant fluid retention. ANTHROPOMETRICS: Current Wt: 136.3 kgBMI: 43.1 kg/m2. IBW: 68.2 kg (199.9% IBW) Weight loss: 5.2 kg x 6 months. This is likely to be inaccurate due to the significant fluid retention currently. ESTIMATED NEEDS (METASTATIC BREAST CANCER, CLASS III OBESITY): Calories: 1705 - 2043 kcal (25 - 30 kcal / kg IBW) Protein: Approx. 170 g protein (2.5 g / kg IBW) NUTRITION DIAGNOSIS: 1)Inadequate oral intake related to increased nutrient needs for the disease process, as evidenced by > 3.67% weight loss x 6 months. INTERVENTION: 1) Will add Glucerna shake to trays. 2) Pt. is not likely a candidate for PEG tube placement due to change in code status. MONITOR/EVALUATE: Diet advance / tolerance, PO intake, labs, GI/nutrition status, goals of care. Follow up per high nutrition risk guidelines.
[2017-04-04] MEDS: Lactulose 20 Gm/30 mL 30 mL Syrup PO SCH ×2 (11:20→18:30)
[2017-04-04] MEDS: Ondansetron 2 mg/mL 2 mL Inj IVPUSH PRN (11:21)
[2017-04-04] MEDS: HYDROcodone-APAP 5-325 mg Tablet PO PRN (13:25)
[2017-04-04] MEDS ORDERED: Artificial Tears 15 mL Ophthalmic Solution BOTH_EYES PRN (13:40)
--- NOTE | 2017-04-04 13:51 | CONS ---
[address] [address] CONSULTATION REPORT PATIENT: SUDHEER PEREZ : 1975 MR#: [id number] ADMIT: 04/03/2017 JOB ID: [id number] NEPHROLOGY CONSULTATION: DATE OF SERVICE: 04/04/2017 REQUESTING PHYSICIAN: Stacy Lam DO REASON FOR CONSULTATION: Management of abnormal kidney function and electrolyte disturbance. CHIEF COMPLAINT: Increased abdominal girth and shortness of breath. PRESENT ILLNESS: This is a very unfortunate, 42-year-old, lady with significant past medical history of metastatic breast cancer, type 2 diabetes, obesity, who presented to the hospital with a complaint of increased abdominal girth, shortness of breath and lower extremity weakness. The patient was initially diagnosed with breast cancer in June 2015. She has failed first and second-line chemotherapy. The patient underwent bilateral mastectomy in December 2015. She completed chemoradiation and had a relapse in July 2016. The patient just received first dose of pembrolizumab on March 27. Unfortunately over the past couple of weeks, she started having increased abdominal girth, shortness of breath and lower extremity weakness. She went to the emergency department a week and a half ago and received Lasix and spironolactone. She reported that both diuretics have not helped her to urinate more; [id number] her urine output has been less over the past week. She stated that she is extremely weak and she has difficulty breathing. She believed that it is likely due to increased abdominal distention. Upon arrival, her initial blood pressure was 91/54, pulse of 123. Her initial BMP showed sodium of 118, potassium of 6.4, BUN 35, creatinine of 1.83. Her baseline serum creatinine is 0.6-0.8. She received normal saline boluses in the emergency room. Later on, she was transferred to the ICU for close monitoring. Her repeat sodium level came up to 120. Overnight, she received D5 water plus 3 amps of sodium bicarb to alkalinize urine given potential tumor lysis syndrome. Her sodium level has gone down to 117. Of note, the patient has had history of chronic leukocytosis. She is a potentially septic, therefore broad-spectrum IV antibiotics were started yesterday. Her lactic acid was 5.1, uric acid was 14.4, with elevation of LDH but normal phosphorus. She was found to have chronically low calcium level. [employer] came and evaluated the patient and recommended to start sodium bicarb drip and allopurinol. PAST MEDICAL HISTORY: 1. Metastatic triple-negative breast cancer refractory to first and second-line chemotherapy, currently on immunotherapy; the first dose given on March 27. 2. Obesity. 3. New onset ascites. 4. Abnormal liver function with history of liver metastasis. 5. History of urinary tract infection. 6. Prolapsed uterus. PAST SURGICAL HISTORY: 1. Status post right skin-sparing modified radical mastectomy, left skin-sparing mastectomy with left axillary lymph node biopsy in December 2015. 2. Status post Port-A-Cath insertion, October 2016. 3. Left benign lumpectomy in 1992. 4. Cholecystectomy. 5. Excision of infected ovarian cyst in 2007. 6. Surgery of left leg and ankle for fracture and dislocated joint in 2005. 7. Abdominal hernia surgery x3. FAMILY HISTORY: Positive for heart disease, hepatitis C, liver cancer in the family. ALLERGIES: No known drug allergies. SOCIAL HISTORY: The patient is a former smoker. Denies current use of alcohol, tobacco, or illicit drugs. MEDICATIONS: Calcium carbonate, cholecalciferol, furosemide, gabapentin, levothyroxine, metformin, methadone, nortriptyline, spironolactone. REVIEW OF SYSTEMS: Fourteen point review of system was performed. PHYSICAL EXAMINATION: Vitals: Temperature 37.7, pulse 124, respiratory 20, blood pressure 96/52, O2 sat 98% on nasal cannula 1 L. General appearance: Awake, alert, oriented x3, in no acute distress. Comfortable at the moment compared to yesterday. HEENT: Mild pallor. No jaundice. No JVD. Atraumatic. Moist mucous membranes. Heart: Tachycardic. Normal S1, S2. No murmurs, rubs, or gallops. Distant heart sounds. Lungs: Decreased breath sounds at bases. No wheezing. No rhonchi. Abdomen: Soft. Moderate distention. Nontender. Decreased bowel sounds. Obese. Unable to assess liver and spleen given her body habitus. Extremities: Trace edema on the lower extremity. No rash, no cyanosis. No clubbing of fingers. LABORATORY: Sodium 117, potassium 6.2, chloride 82, bicarb 19, BUN 40, creatinine 1.89, glucose 190, serum osmo 282, lactic acid 4.5, calcium 6.8. ASSESSMENT: 1. Hyponatremia. Per physical exam, the patient appears to have increased total body water. She recently received furosemide and Aldactone treating for new onset ascites in the setting of liver metastasis of the breast cancer. Interestingly her serum osmo is almost close to the normal. It is contradicting with her current sodium level. At this point, I would like to check the sodium level via VBG or ABG, and that way we will have a better measurement on the serum sodium. I will put her on fluid restriction 800 cc per day. We will try to double concentrate IV fluid. Given worsening hyponatremia, while she is on sodium bicarb drip, I would like to discontinue medication. If the Hematology/Oncology service would like to alkalinize her urine, please feel free to start sodium bicarb orally or we can run sodium bicarb push [id number], that way we can prevent fluid overload. 2. Persistent hyperkalemia in the setting of chronic constipation. The patient received one dose of Kayexalate last night. She has not had any bowel movement since. I am afraid that if we give her more Kayexalate, we might create a serious but rare complication, ischemic bowel. I would recommend to give her stronger laxative, for example lactulose or Golytely. Of note, the patient has been on methadone and other narcotics. I would recommend to give her Relistor as a treatment for narcotic induced constipation. Will give her another dose of albuterol hopefully to shift the potassium into cells. Unfortunately D50 is a back order. If we have to give insulin and D10, I am afraid that it will create more fluid retention. 3. Increased abdominal distension US showed a small amount of ascites, I am wondering it could be related to constipation. 4. Chronic leukocytosis. 5. Elevation of uric acid, potential tumor lysis syndrome. Yet, patient has normal phosphorus. 6. Chronic hypocalcemia. Of note, the patient has been receiving Zometa and it just stopped recently. I will check her PTH and vitamin D level. Will check ionized calcium. 7. Elevation of procalcitonin. 8. Hypotension. 9. Acute kidney injury in the setting of low effective circulating volume. Differential diagnosis: Hepatorenal syndrome, sepsis, intravascular volume depletion. Will start patient on IV albumin 25 g q.8 h. along with IV Lasix 40 mg x2 doses to monitor if this regimen will help to increase her urine output and restore intravascular volume. There is no emergency dialysis indicated at this moment. She is extremely complicated and is in critical condition. We will try medical management for now and we will closely monitor her volume status and her electrolytes. Thank you for allowing me to participate in the care of your patient. We will monitor along with you. MTDD
--- NOTE | 2017-04-04 16:03 | PROG NOTE ---
[address] [address] PROGRESS NOTE PATIENT: SUDHEER PEREZ : 1975 MR#: [id number] ADMIT: 04/03/2017 JOB ID: [id number] PULMONARY CRITICAL CARE FOLLOWUP: DATE: 04/04/2017 PROBLEM: Hypertension. SUBJECTIVE: The patient feels a bit short of breath. Finds her breathing a little bit shallow but not a particular problem for her. Major complaint is abdominal distention. Has not had a bowel movement now in about 4 or 5 days. Also notes some increasing peripheral edema. Has had problems with constipation in the past few weeks. Initially tried an [id number] medication; taking two tablets. Had an excellent response; in fact a little too much for her; therefore took one tablet that did not work. She then took a glass of prune juice which again gave her a somewhat heroic response. A half glass of prune juice a number of days ago was ineffective. She has not had a bowel movement since then. Usually she states she is rather sensitive to minimal doses of stool softeners. No cough or sputum production. States it is a bit difficult to take a deep breath but ascribes it mostly to the abdominal distention. OBJECTIVE: Blood pressure 136/76, pulse 106, temperature 36.5, O2 sat on 1 L of oxygen is 96% to 99%. I and O shows 3.1 L in, 1 L out. General appearance: No acute distress. Appears somewhat uncomfortable. She seemed uncomfortable from the abdominal distention and the peripheral edema. Chest: Fairly good breath sounds in the upper lung [place]. Diminished at the bases. Heart: Regular rhythm. Rapid rate. Heart tones seem normal. Abdomen: Distended. Firm, diffusely tender. A few bowel tones present. Extremities: 2+ pretibial edema. Some cyanosis of the toes. LABORATORY DATA: Shows a white count of 21,200 with 63 polymorphonuclears, 16 bands, 2 metamyelocytes, 1 myelocyte, 6 nucleated RBCs. Hemoglobin 8.6, and slowly decreasing was 10.2, 24 hours ago. Platelet count continues to fall; currently 33,000, down from 46,000 yesterday. Sodium 118 and stable, potassium 6.1, and unchanged over the past 20 hours. Chloride 83, CO2 is 20, BUN 40, creatinine 1.9 and stable. Calcium 7. Ionized calcium 2.9 earlier today with lower limits normal being 3.5. Urine osmolality 364 with urine sodium less than 10. Blood cultures at 24 hours are negative. Urine culture: No growth to date. Chest x-ray yesterday shows elevation of the hemidiaphragms. Small lung aeration. There is opacification along lateral margin of the right lung. Abdominal ultrasound shows only a small amount of ascites. Volume not sufficient for paracentesis. ASSESSMENT: 1. Hypertension. Responded to fluid resuscitation. Currently blood pressure is fine. 2. Hyperkalemia. Nondialytic measures being used for control of the potassium. Seems relatively stable. However still not evacuating the bowels. Will check for abdominal hypertension. It might result in decreased venous return. 3. Hyponatremia. May be fluid overloaded. If she indeed does have intra-abdominal hypertension, we may be being misled and maybe she has decreased venous return. Will check intra-abdominal pressure to see if that is playing any role in this very complicated fluid electrolyte problem. PLAN: 1. Check intra-abdominal pressure. 2. Consider prune juice. 3. If intra-abdominal pressure is elevated would proceed with enemas. CRITICAL CARE CODIN
--- NOTE | 2017-04-04 19:05 | PCM.PNMED ---
Subjective Date of Service Apr 04, 2017 Subjective Overnight Events: Switched IVF to D5 1/2NS + 3amps bicarb @ 80 ml/hr, given insulin. 5units IV x 2. Given norco prn. Patient is awaken from bed, resting comfortably. She mentions she is feeling better than yesterday. She is not having any pain currently. She denies any headache, dizziness, chest pain, shortness of breath, abdominal pain, nausea, vomiting, diarrhea. I did notice some blood in her mouth and when brought up, she did mention her tongue hurt a little bit. Exam Vital Signs Vital Sign - Last Date Time Temp Pulse Resp B/P Pulse Ox O2 Delivery O2 Flow Rate FiO2 04/04/17 04:00 36.7 108 12 96/52 98 Nasal Cannula 1.00 Intake and Output 04/03/17 04/03/17 04/04/17 Cumulative From/Thru 15:00 23:00 07:00 04/03/17 10:39 - 04/03/17 18:52 Intake Total 999 ml 2190 ml 3189 ml Output Total 800 ml 200 ml 1000 ml Balance 199 ml 1990 ml 2189 ml Intake Oral 120 ml 120 ml IV Total 999 ml 2070 ml 3069 ml Output Urine Total 800 ml 200 ml 1000 ml # Voids 1 1 Exam Gen.: Middle-aged obese female in no acute distress, with improved mentation and presentation Eyes: Pupils equal round reactive to light, extraocular motion intact, anicteric sclerae, noninjected conjunctiva HENT: Normocephalic atraumatic, moist mucous membranes without central cyanosis , oropharynx clear without cobblestoning mucosa, gross blood visualized in the mouth with bruising on the right tip of the tongue. Neck: Supple, trachea midline, no thyromegaly Cardiovascular: regular rate and rhythm, no murmurs rubs or gallops Lungs: anterior lung magaña clear to auscultation, unable to auscultate posterior lung magaña due to patient positioning. Abdomen: severely Distended, tympanic to percussion, hypoactive bowel sounds, nontender, unable to assess organomegaly due to body habitus Extremities: Cyanosis of bilateral toes, cold lower extremities, difficult to palpate pulses at both radial and dorsalis pedis and posterior tibialis, mild pitting edema noted in lower extremities bilaterally : Velazquez in place draining dark urine Skin: Warm and dry Neuro: Nonfocal cranial nerve exam, Able to move all extremities, Weak lower extremities bilaterally in both hip flexion and knee flexion Psych: Normal mood and affect, alert and oriented 3 Lab and Diagnostics Laboratory Tests 72 Hours Test 04/03/17 10:45 04/03/17 11:55 04/03/17 12:25 04/03/17 15:00 White Blood Count 29.0th/mm3 (3.8-10.1) 25.9th/mm3 (3.8-10.1) Corrected White Blood Count 26.9th/mm3 (3.8-10.1) Red Blood Count 3.24mil/mm3 (3.90-5.20) 2.93mil/mm3 (3.90-5.20) Hemoglobin 10.2g/dL (12.0-15.6) 9.2g/dL (12.0-15.6) Hematocrit 32.5% (35.0-46.0) 29.8% (35.0-46.0) Mean Corpuscular Volume 100.3fL (81-100) 101.7fL (81-100) Mean Corpuscular Hemoglobin 31.5pg (27.0-35.0) 31.4pg (27.0-35.0) Mean Corpuscular Hemoglobin Concent 31.4% (32.0-37.0) 30.9% (32.0-37.0) Red Cell Distribution Width 22.1% (12.3-15.4) 22.1% (12.3-15.4) Platelet Count 46bil/L (150-400) 41bil/L (150-400) Neutrophils (%) (Auto) 68% (40-74) Lymphocytes (%) (Auto) 8% (14-46) Monocytes (%) (Auto) 5% (4-12) Eosinophils (%) (Auto) 1% (0-5) Basophils (%) (Auto) 1% (0-3) Band Neutrophils % 3% (1-5) Metamyelocytes % 4% (0-0) Myelocytes % 9% (0-0) Blast Cells % 1% (0-0) Nucleated Red Blood Cells 8/100 WBC (0-24) Hematology Comments Rbc Sodium Level 118mEq/L (134-144) 120mEq/L (134-144) Potassium Level 6.4mEq/L (3.5-5.2) 6.5mEq/L (3.5-5.2) Chloride Level 85mEq/L (97-108) 86mEq/L (97-108) Carbon Dioxide Level 19mmol/L (18-29) 20mmol/L (18-29) Blood Urea Nitrogen 35mg/dL (6-24) 36mg/dL (6-24) Creatinine 1.83mg/dL (0.57-1.00) 1.79mg/dL (0.57-1.00) Estimat Glomerular Filtration Rate 43mL/min (>59) 44mL/min (>59) Glucose Level 153mg/dL (60-99) 162mg/dL (60-99) Lactic Acid Level 5.1mmol/L (0.4-2.0) 4.3mmol/L (0.4-2.0) Uric Acid 14.4mg/dL (2.6-7.2) Calcium Level 7.5mg/dL (8.5-10.1) 7.1mg/dL (8.5-10.1) Phosphorus Level 3.7mg/dL (2.5-4.9) Magnesium Level 1.6mg/dL (1.6-2.6) Total Bilirubin 1.3mg/dL (0.0-1.2) 1.3mg/dL (0.0-1.2) Aspartate Amino Transf (AST/SGOT) 138U/L (0-50) 130U/L (0-50) Alanine Aminotransferase (ALT/SGPT) 41U/L (0-32) 39U/L (0-32) Alkaline Phosphatase 392U/L (25-150) 370U/L (25-150) Lactate Dehydrogenase 895U/L (100-190) Troponin T 0.010ug/L (0.0-0.011) Total Protein 7.8g/dL (6.4-8.4) 7.0g/dL (6.4-8.4) Albumin 1.9g/dL (3.4-5.0) 1.9g/dL (3.4-5.0) Prothrombin Time 15.5sec (8.1-12.5) Prothromb Time International Ratio 1.44ratio Urine Color Yellow (YELLOW) Urine Appearance Clear (CLEAR,HAZY) Urine pH 5.0 (5.0-8.0) Urine Specific Robbins 1.015 (1.003-1.035) Urine Protein Negativemg/dL (NEG,TRACE) Urine Glucose (UA) Negativemg/dL (NEGATIVE) Urine Ketones Negativemg/dL (NEGATIVE) Urine Occult Blood Negative (NEGATIVE) Urine Nitrite Negative (NEGATIVE) Urine Bilirubin Small (NEGATIVE) Urine Ictotest Negative (Negative) Urine Urobilinogen Normalmg/dL (NORMAL) Urine Leukocyte Esterase Trace (NEGATIVE) Urine RBC 0-2/hpf (0-2) Urine WBC 0-5/hpf (0-5) Urine Epithelial Cells Occasional/hpf (NONE-MOD) Urine Crystals None seen (NONE SEEN) Urine Bacteria Few/hpf (NONE-FEW) Urine Hyaline Casts None/lpf (NONE) Urine Granular Casts None seen (NONE SEEN) Urine Waxy Casts None seen (NONE SEEN) Urine Red Blood Cell Casts None seen (NONE SEEN) Urine White Blood Cell Casts None seen (NONE SEEN) Urine Mucus None seen (None Seen) Urine Trichomonas None seen (NONE SEEN) Urine Yeast None (NONE SEEN) Urinalysis Comment None Urine Culture Reflexed Indicated Urine Osmolality 364mOs/kH2O (250-1200) Urine Random Sodium < 10mEq/L Osmolality 281 (275-300) Triglycerides Level 244mg/dL (0-149) Procalcitonin 6.17ng/mL (0.00-0.08) Test 04/03/17 18:41 04/03/17 19:30 04/03/17 20:30 04/04/17 00:05 Sodium Level 120mEq/L (134-144) 117mEq/L (134-144) Potassium Level 6.0mEq/L (3.5-5.2) 6.2mEq/L (3.5-5.2) Chloride Level 86mEq/L (97-108) 84mEq/L (97-108) Carbon Dioxide Level 16mmol/L (18-29) 17mmol/L (18-29) Blood Urea Nitrogen 36mg/dL (6-24) 37mg/dL (6-24) Creatinine 1.90mg/dL (0.57-1.00) 1.98mg/dL (0.57-1.00) Estimat Glomerular Filtration Rate 41mL/min (>59) 39mL/min (>59) Glucose Level 173mg/dL (60-99) 200mg/dL (60-99) Calcium Level 7.6mg/dL (8.5-10.1) 7.2mg/dL (8.5-10.1) Hold Braggadocio Top Tube Received (Received) Received (Received) Lactic Acid Level 6.7mmol/L (0.4-2.0) 6.0mmol/L (0.4-2.0) Thyroid Stimulating Hormone (TSH) 21.380uIU/mL (0.450-4.500) Free Thyroxine 1.05ng/dL (0.82-1.77) Test 04/04/17 04:25 White Blood Count 21.2th/mm3 (3.8-10.1) Corrected White Blood Count 20.0th/mm3 (3.8-10.1) Red Blood Count 2.77mil/mm3 (3.90-5.20) Hemoglobin 8.6g/dL (12.0-15.6) Hematocrit 27.7% (35.0-46.0) Mean Corpuscular Volume 100.0fL (81-100) Mean Corpuscular Hemoglobin 31.0pg (27.0-35.0) Mean Corpuscular Hemoglobin Concent 31.0% (32.0-37.0) Red Cell Distribution Width 22.3% (12.3-15.4) Platelet Count 33bil/L (150-400) Neutrophils (%) (Auto) 63% (40-74) Lymphocytes (%) (Auto) 12% (14-46) Monocytes (%) (Auto) 4% (4-12) Eosinophils (%) (Auto) 0% (0-5) Basophils (%) (Auto) 1% (0-3) Band Neutrophils % 16% (1-5) Metamyelocytes % 2% (0-0) Myelocytes % 1% (0-0) Nucleated Red Blood Cells 6/100 WBC (0-24) Hematology Comments Sodium Level 117mEq/L (134-144) Potassium Level 6.2mEq/L (3.5-5.2) Chloride Level 84mEq/L (97-108) Carbon Dioxide Level 19mmol/L (18-29) Blood Urea Nitrogen 38mg/dL (6-24) Creatinine 1.95mg/dL (0.57-1.00) Estimat Glomerular Filtration Rate 40mL/min (>59) Glucose Level 213mg/dL (60-99) Lactic Acid Level 4.7mmol/L (0.4-2.0) Calcium Level 7.0mg/dL (8.5-10.1) Phosphorus Level 3.5mg/dL (2.5-4.9) Magnesium Level 1.6mg/dL (1.6-2.6) Procalcitonin 7.42ng/mL (0.00-0.08) Result Diagram: 04/04/1742404/04/17 0425 Microbiology Item Value Date Time MRSA (PCR) Received 04/03/17 1527 Nose Pending Urine Culture Received 04/03/17 1225 Urine,Random Pending Blood Culture Received 04/03/17 1155 Blood Aerobic Bottle Pending Blood Culture Received 04/03/17 1045 Blood Aerobic And Anaerobic Bottle Pending X-Rays, CTs and MRIs X-RAY CHEST ONE VIEW, PORTABLE IMPRESSION: 1. Small right-sided pleural effusion with associated atelectasis. 2. Probable enlargement of the heart with moderate vascular congestion. Please correlate clinically to exclude developing pulmonary edema. Dictated by: Won Thornton M.D. on 04/03/2017 at 10:50 US ABDOMEN, LIMITED IMPRESSION: Small amount of ascites present decreased from prior examination. Volume is not sufficient for safe paracentesis. Dictated by: Roland Gomez RRA Interpreted: Chris Randall MD on 04/03/2017 at 12 :19 X-RAY KUB IMPRESSION: Study severely degraded secondary to portable technique and the patient's body habitus. Grossly there is no evidence of bowel obstruction. If there is persistent clinical concern for bowel obstruction recommend abdominal and pelvic CT with contrast. Dictated by: Chris Randall M.D. on 04/03/2017 at 16:04 Cardiac Echo Impressions Echocardiogram Report Interpretation Summary Left ventricular systolic function is normal with the ejection fraction grossly estimated to be 70-75%. There are no obvious focal wall motion abnormalities noted but poor endocardial definition reduces the sensitivity for the detection of such. The left ventricular cavity is small and wall thickness is mildly increased. Cannot assess for LVOT obstruction but there is no obvious anterior motion of the mitral valve leaflet. Diastolic function could not be accurately assessed due to unobtainable data. The right ventricle is not well visualized but grossly appears normal in size with probable normal systolic function. Pulmonary artery pressures cannot be estimated because of the lack of a measurable TR jet velocity. The atria are not well visualized. There is no obvious significant valvular heart disease but sensitivity is decreased because of limited images. There is no pericardial effusion. The patient was in sinus tachycardia with heart rates between 124-143 bpm during the exam. Reading Physician:04:52 PM Assessment & Plan Miss Camelia Barahona is a very pleasant 42-year-old lady with a past medical history significant for metastatic triple negative breast cancer, diabetes type II, morbid obesity who presents to the [facility] emergency Department by EMS after worsening progressive weakness over the past week. She reports slowly progressive increase in abdominal girth with associated shortness of breath and abdominal swelling/pressure. She also reports a slowly progressive decrease in ability to urinate and of note she was placed on spironolactone and Lasix as of last week that initially was helpful but as of 23 days ago were ineffective largely. She reports mild constipation for which she drank a lot of prune juice and had 1 episode of loose stools, yesterday. She denies headache, syncope, chest pain, cough, vomiting, fever, chills, abdominal pain with palpation. She reports mild nausea, excessive thirst, positional abdominal pain, decreased urination and constipation with one episode of diarrhea. Patient finished first-line carboplatin/gemcitabine and subsequently a second line docetaxel/Xeloda, and is now on Pembrolizumab (PD-L1) immunotherapy. Metastatic triple negative breast cancer relatively refractory to chemotherapy, her tumor is low expressor of PD L1 with 1-5% expression by immunochemistry. 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 She had previously been on Zometa infusions but was stopped at her most recent oncology clinic visit due to low calcium of 7.6 with a plan to restart in April 08. She is advised to continue calcium plus vitamin D. Patient was transferred to the ICU in stable condition. Acute Hyperkalemia, present on admission. Active. - Potassium on admission 6.4. - EKG showed low voltage. - Echo was negative for pericardial effusions or tamponade. - Albuterol nebulizer 20 mg given. - Initially, 10 units regular given with D10 running concurrently. Kayexalate was given. Important to note, patient has not had a bowel movement for several days. - BMP labs every 4 hours. - CCU and nephrology team consulted. Triple negative metastatic breast cancer, present on admission. Active. - Dr. Jay with oncology is patient's outpatient oncologist, Dr. Palacios is currently seeing the patient. Hyponatremia, present on admission. Active. - Sodium 118 on admission. - Patient received 2 L of NS. - Nephrology consulted. Likely hypervolemic hyponatremia. - Fluids discontinued - Urine osmol 364, Urine sodium <10, Serum sodium 120, Serum osmol 281, Acute kidney injury, present on admission. Active. - Creatinine 1.79 on admission, with unknown baseline. - Associated elevated uric acid at 14.4. - Continue IV fluids. - Likely hepatorenal syndrome per nephrology consultation - IV albumin 04/04/17 - Fluids discontinued Lactic acidosis, present on admission. Active. - Lactic acid on admission 5.1, on repeat 4.3. - Will trend Q2H till Lactic acid < 2. Acute urinary retention, present on admission. Active. - Patient had 2 L urine out with straight cath. - Renal US shows no nephrolithiasis or obstruction. Leukocytosis, present on admission. Active. - White count on admission 25.9. - Patient's previous admissions with white count as high as 65.7. - From previous oncology prog notes: Differential for the patient's neutrophilia includes a leukemoid reaction from underlying infection, myelopthysis process from disease progression within the marrow, secondary myeloid neoplasia from previous chemotherapy exposure (MDS, Acute Leukemia), and finally demargination from prechemotherapy steroids. Morbid obesity, present on admission. Active. Protein malnutrition, present on admission. Active. - IV albumin started Hypothyroidism, present on admission. Controlled. - Continue home synthroid. Diabetes Type II, present on admission. Active. - Medium dose, nutritional and correctional insulin. - Holding home metformin. Acetaminophen for mild pain when necessary. Bowel regimen Senna and MiraLAX scheduled and PRN. Zofran when necessary for nausea and vomiting. SubQ heparin held for now. SCDs in place. High-risk medications: Resuscitation Status: DNR/DNI:Do Not Resuscitate/Intubate Time spent 45 minutes Attending Statement I have seen and evaluated patient at bedside in addition to directly supervising care provided by resident physician. I agree with above documentation from 04/04/[address] Block. This is a very complex 42-year-old female with triple negative metastatic breast cancer very resistant to multiple rounds of chemotherapy and only amenable to palliation at this time. Multiple complications including electrode abnormalities stool impaction are likely playing a significant role in patient's discomfort , and unlike cancer may be amenable to further medical treatment . Given patient is a poor candidate for dialysis, excretion of potassium via stool or urine is really only remaining avenue available to us to return patient to some state of medical stability. Aggressive bowel regime has been attempted, including 2 types of enema, follow-up imaging studies pending which will reassure her that there is no mechanical obstruction and encourage further attempts at encouraging successful bowel movement which should help in excretion of potassium. Sodium addition remains refractory, with plan to continue on fluid restriction as per the recommendations of our nephrology skin care consultant. We will continue to balance patient comfort with possible medical interventions which may help to prolong meaningful life in this patient who is understanding of her poor prognosis but would certainly appreciate a degree of medical intervention if it would improve quality of life and afford her possibility to return home for even a short period. Francisco Block DO Apr 04, 2017 06:26 John Maciel DO Apr 05, 2017 16:50
--- NOTE | 2017-04-04 19:25 | NUR ---
Constipation/pain/electrolytes: Relistor 12mg was administered, Lactulose 30mg PO was given and patient was still unable to produce BM. Patient reported increased abdominal pain 8/10. MD was notified. Castile soap enema was administered, but catheter was difficult to advance and appeared to hit an obstruction despite attempting to maneuver catheter patient had a small amount of bleeding from rectum. MD was notified. Fleets enema was also attempted without success. MD was notified and ABD scan was ordered. Electrolytes have been closely monitored (please see EMR) as ordered and all critical labs have been communicated to Dr Block.
[2017-04-04] MEDS: oxyCODONE-Acetamin 5-325 mg Tablet PO PRN (21:16)
--- NOTE | 2017-04-04 22:38 | DRSVH ---
PROCEDURE: CT ABDOMEN AND PELVIS WITHOUT CONTRAST ([id number]) INDICATIONS: History of metastatic breast cancer with abdominal distention and constipation. TECHNIQUE: After the administration of oral contrast, 5 mm thick sections acquired from the diaphragms to the sy mphysis. 5 mm coronal and sagittal reformats were performed. For radiation dose reduction, the foll owing was used: automated exposure control, adjustment of mA and/or kV according to patient size. COMPARISON: [facility], CT, CT CHEST ABD PELVIS W CON, 03/09/2017, 11:41. FINDINGS: Image quality: There is motion artifact limiting evaluation. There is also incomplete inclusion of t he anterior abdominal wall secondary to body position and habitus. ABDOMEN: Lung bases: There is a small to moderate right pleural effusion and trace left effusion with associat ed compressive atelectasis and consolidation in the lung bases, right greater than left. Heart size is normal. Bilateral breast implants are partially visualized. Solid organs: There is heterogeneous appearance of the liver with scattered ill-defined hypoattenuat ing mass lesions redemonstrated these appear similar with the prior study with evaluation limited due to differences in technique and limitations on the current study. The spleen is enlarged, measuring up to 21.9 cm. Pancreas is normal in size. No adrenal nodules. Kidneys demonstrate mild bilateral pelvocaliectasis which are new compared to the prior study. There is slight dilatation of the proxi mal right ureter. Peritoneum and bowel: Visualized bowel loops demonstrate grossly normal wall thickness and caliber. The transverse colon and other anterior bowel loops are incompletely included on the current study. There is a moderate amount of ascites in the abdomen and pelvis. No free air. Nodes and vessels: No retroperitoneal or mesenteric adenopathy by size criteria. Aorta and inferior vena cava are normal in size. Miscellaneous: There is a ventral abdominal hernia partially visualized. There is diffuse subcutaneo us edema suggesting anasarca. PELVIS: Genitourinary: There is a Velazquez catheter within a decompressed urinary bladder.. Miscellaneous: No inguinal hernias. There are mildly prominent inguinal lymph nodes bilaterally whi ch are likely reactive. Bones: There are extensive sclerotic lesions throughout the visualized osseous structures consistent with blastic metastatic disease. No vertebral body compression fractures. IMPRESSION: 1. No definite evidence of bowel obstruction as clinically queried. There is incomplete inclusion o f a few anterior bowel loops on the current study due to body habitus and patient positioning. 2. Moderate amount of ascites in the abdomen and pelvis, increased from the prior study. 3. Small to moderate right pleural effusion and trace left effusion with bibasilar compressive atele ctasis and consolidation. 4. Heterogeneous appearance of the liver with ill-defined metastatic lesions appear similar to the p rior study. Diffuse blastic metastatic disease redemonstrated throughout the visualized osseous stru ctures. 5. Slightly increased pelvocaliectasis in the renal collection systems bilaterally. 6. Splenomegaly again noted. Dictated by: Mikael Cancino M.D. on 04/04/2017 at 22:26 Approved by: Mikael Cancino M.D. on 04/04/2017 at 22:36
[2017-04-05] MEDS: Lactulose 20 Gm/30 mL 30 mL Syrup PO SCH (02:54)
[2017-04-05 04:09] VITALS: BP 126/70; PULSE 100; RESP 12; O2SAT 99
[2017-04-05 05:21] LABS: Mean Corpuscular Hemoglobin 31.3 pg (27.0-35.0); Mean Corpuscular Volume 99.2 fL (81-100)
[2017-04-05 05:44] LABS: Bilirubin, Direct 0.5 mg/dL (0.0-0.3)
--- NOTE | 2017-04-05 05:47 | NUR ---
Tests/Activity/Pain/ Pt transported via [facility] bed around [address] abd w/o contrast. Pt poorly tolerated turns/repositioning, c/o sob at rest and on exertion, sp02 99% on 5L via NC during test. Pt transported back to room 2012 to utilize a lift room. Pt tolerated being on CLRT bed (min settings) rather than being turned. Pt given routine methadone and prn percocet for pain control, vital signs stable, gama drained with 350cc through the shift, given albumin and lasix IV as ordered. Recent lab with K+6.2, Na 120.
[2017-04-05] MEDS ORDERED: Polyethylene Glycol (PEG) 17 Gm Powder PO ONE (07:25)
[2017-04-05] MEDS: Cefepime Inj 2,000 MG in Dextrose 5% Minibag Plus 100 ML IV SCH ×2 (07:35→16:16)
[2017-04-05] MEDS: Tolterodine ER 2 mg ER24 Capsule PO SCH (07:36)
[2017-04-05] MEDS: Insulin LISPRO 300 Unit/3 mL Inj SUBQ SCH ×3 (07:41→16:57)
[2017-04-05] MEDS ORDERED: Albuterol 2.5 mg/3 mL Inhalation Solution NEB ONE (07:50)
[2017-04-05 08:11] VITALS: BP 125/70; PULSE 104; RESP 19; O2SAT 98
[2017-04-05] MEDS: oxyCODONE-Acetamin 5-325 mg Tablet PO PRN (08:42)
[2017-04-05 09:08] VITALS: PULSE 102; O2SAT 97
[2017-04-05] MEDS ORDERED: PEG/Electrolytes 4,000 mL Solution PO ONE (10:15)
[2017-04-05] MEDS ORDERED: Calcium GLUCO 10% (Gm) Inj 1 GM in 0.9% Sodium Chloride 50 ML IV ONE (10:40)
--- NOTE | 2017-04-05 11:01 | CONS ---
[address] [address] CONSULTATION REPORT PATIENT: SUDHEER PEREZ : 1975 MR#: [id number] ADMIT: 04/03/2017 JOB ID: [id number] DATE OF SERVICE: 04/05/2017 REASON FOR CONSULTATION: Constipation. HISTORY OF PRESENT ILLNESS: This is a very pleasant unfortunate 42-year-old, female with history of metastatic triple negative breast cancer, diabetes type 2, obesity who was admitted here to the hospital on 04/03 progressive weakness for the past week. From a GI standpoint, the patient states that she has been having constipation for the past four days. The patient states that she is a number of narcotics which includes methadone 5 mg by mouth twice a day along with OxyContin 5 mg every 6 hours. The patient's baseline bowel movement is one time per day. The patient never had an EGD or colonoscopy in the past. Denies family history of colon cancer, inflammatory bowel disease, or celiac disease. The patient states she is getting immunotherapy at this point in time for her breast cancer. The patient underwent a CT of the abdomen and pelvis that was done on April 04, 2017 without contrast which showed no definitive bowel obstruction, there is incomplete occlusion of a few anterior bowel loops to the body habitus and patient positioning, there is moderate amount of ascites in the abdomen and pelvis which has increased prior, small to moderate right pleural effusion, and trace left effusion with bibasilar compression, atelectasis, and consolidation along with heterogeneous appearance of the liver. Diffuse blastic metastatic disease re-demonstrated throughout the visualized osseous structures, splenomegaly and slight increased pelvocaliectasis in the renal collection system bilaterally. The patient denies rectal bleeding, nausea, vomiting, hematemesis. The patient presents for further evaluation from a GI standpoint. The patient was also noted to have electrolyte abnormalities upon admission with currently last electrolytes on April 05, 2017 which showed a sodium 120, potassium 6.6, calcium of 7.4. Her albumin is 2.7. The patient presents for further evaluation. PAST MEDICAL HISTORY: As stated above includes bladder infection, hyperthyroidism, chronic tachycardia. No surgeries. ALLERGIES: None. HOME MEDICATIONS: 1. Calcium carbonate. 2. Vitamin D3. 3. Lasix. 4. Gabapentin. 5. Synthroid. 6. Glucophage. 7. Methadone 5 mg by mouth twice a day. 8. Nortriptyline. 9. Spironolactone. 10. . SOCIAL HISTORY: No alcohol. No IV drug use. No smoking. FAMILY HISTORY: Negative for colon cancer, inflammatory bowel disease, or celiac disease. REVIEW OF SYSTEMS: The patient denies headache, blurred vision, nausea, vomiting, chest pain, shortness of breath. Positive for abdominal discomfort. No skin rash. PHYSICAL EXAMINATION: Vital signs upon presentation her temperature is 37.0, pulse of 102, blood pressure 125/70, respiratory rate 19, satting 97% on 1 L nasal cannula. Generally, she is obese in no acute distress. Head no scars. Eyes anicteric. Throat supple. Cardiovascular slightly tachy, regular rhythm. GI standpoint she soft, mildly distended, nontender. Normoactive bowel sounds. Extremities: No cyanosis, clubbing, or edema. LABORATORIES: Sodium 120, potassium 6.6, chloride 186, bicarb 21, BUN 44, creatinine 1.85. Glucose 210. Calcium 7.4. Total bili 1.1. Direct bili 0.5. AST 120, ALT 37, alk phos 338. Total protein 7.4, albumin 2.7. White count 15.1, hemoglobin of 8.1, hematocrit 25, platelet count 26. PT 2.5. INR 1.4. ASSESSMENT AND PLAN: This is an unfortunate 42-year-old female with triple negative metastatic breast cancer, diabetes, and morbid obesity admitted to the hospital for progressive worsening weakness for the past one week. The patient also has had increased abdominal girth and change in bowel movements in which she has more constipation most likely opioid induced. During hospital stay, the patient has tried one dose of ceftriaxone subcutaneous which caused her more pain and without any bowel movement. The patient has also been given senna and mineral oil enemas without any relief. At this point in time I do recommend GoLYTELY 4 L to be used to help patient have a bowel movement given the fact that the CT scan has no evidence of obstruction. In terms of maintenance, I would recommend the patient should be on a good a bowel regimen and would recommend Amitiza given the fact that this FDA approved for opioid induced constipation 8 mcg by mouth twice a day. RECOMMENDATIONS: 1. GoLYTELY 4 L x1. 2. After bowel movement consider Amitiza 8 mcg by mouth twice a day for opioid induced constipation. 3. Will continue to follow.
--- NOTE | 2017-04-05 11:48 | PCM.PNMED ---
Subjective Date of Service Apr 05, 2017 Subjective Overnight Events: No acute overnight events. Patient is awaken bed, resting comfortably. Reports passing some flatus overnight and this am. Denies nausea and vomiting, chest pain, dizziness, fever , and chills. Exam Vital Signs Vital Sign - Last Date Time Temp Pulse Resp B/P Pulse Ox O2 Delivery O2 Flow Rate FiO2 04/05/17 04:09 36.5 100 12 126/70 99 Nasal Cannula 1.00 Intake and Output 04/04/17 04/04/17 04/05/17 Cumulative From/Thru 15:00 23:00 07:00 04/03/17 10:39 - 04/05/17 05:19 Intake Total 1010 ml 525 ml 6112 ml Output Total 250 ml 350 ml 1800 ml Balance 760 ml 175 ml 4312 ml Intake Oral 600 ml 200 ml 1160 ml IV Total 410 ml 325 ml 4952 ml Output Urine Total 250 ml 350 ml 1800 ml # Voids 1 # Bowel Movements 0 0 Exam Gen.: Middle-aged obese female in no acute distress, with improved mentation and presentation Eyes: Pupils equal round reactive to light, extraocular motion intact, anicteric sclerae, noninjected conjunctiva HENT: Normocephalic atraumatic, moist mucous membranes without central cyanosis , oropharynx clear without cobblestoning mucosa, gross blood visualized in the mouth with bruising on the right tip of the tongue. Neck: Supple, trachea midline, no thyromegaly Cardiovascular: regular rate and rhythm, no murmurs rubs or gallops Lungs: anterior lung magaña clear to auscultation, unable to auscultate posterior lung magaña due to patient positioning. Abdomen: severely Distended, tympanic to percussion, hypoactive bowel sounds, nontender, unable to assess organomegaly due to body habitus Extremities: Cyanosis of bilateral toes, cold lower extremities, difficult to palpate pulses at both radial and dorsalis pedis and posterior tibialis, mild pitting edema noted in lower extremities bilaterally : Velazquez in place draining dark urine Skin: Warm and dry Neuro: Nonfocal cranial nerve exam, Able to move all extremities, Weak lower extremities bilaterally in both hip flexion and knee flexion Psych: Normal mood and affect, alert and oriented 3 IVs and Medications Medications Reviewed: Medications were reviewed in detail Lab and Diagnostics Result Diagram: 04/05/1751104/05/1712 Microbiology Item Value Date Time MRSA (PCR) Received 04/03/17 1527 Nose Pending Urine Culture Received 04/03/17 1225 Urine,Random Pending Blood Culture Received 04/03/17 1155 Blood Aerobic Bottle Pending Blood Culture Received 04/03/17 1045 Blood Aerobic And Anaerobic Bottle Pending X-Rays, CTs and MRIs X-RAY CHEST ONE VIEW, PORTABLE IMPRESSION: 1. Small right-sided pleural effusion with associated atelectasis. 2. Probable enlargement of the heart with moderate vascular congestion. Please correlate clinically to exclude developing pulmonary edema. Dictated by: Won Thornton M.D. on 04/03/2017 at 10:50 US ABDOMEN, LIMITED IMPRESSION: Small amount of ascites present decreased from prior examination. Volume is not sufficient for safe paracentesis. Dictated by: Roland Gomez RR Interpreted: Chris Randall MD on 04/03/2017 at 12 :19 X-RAY KUB IMPRESSION: Study severely degraded secondary to portable technique and the patient's body habitus. Grossly there is no evidence of bowel obstruction. If there is persistent clinical concern for bowel obstruction recommend abdominal and pelvic CT with contrast. Dictated by: Chris Randall M.D. on 04/03/2017 at 16:04 Cardiac Echo Impressions Echocardiogram Report Interpretation Summary Left ventricular systolic function is normal with the ejection fraction grossly estimated to be 70-75%. There are no obvious focal wall motion abnormalities noted but poor endocardial definition reduces the sensitivity for the detection of such. The left ventricular cavity is small and wall thickness is mildly increased. Cannot assess for LVOT obstruction but there is no obvious anterior motion of the mitral valve leaflet. Diastolic function could not be accurately assessed due to unobtainable data. The right ventricle is not well visualized but grossly appears normal in size with probable normal systolic function. Pulmonary artery pressures cannot be estimated because of the lack of a measurable TR jet velocity. The atria are not well visualized. There is no obvious significant valvular heart disease but sensitivity is decreased because of limited images. There is no pericardial effusion. The patient was in sinus tachycardia with heart rates between 124-143 bpm during the exam. Reading Physician:04:52 PM Assessment & Plan Miss Camelia Barahona is a very pleasant 42-year-old lady with a past medical history significant for metastatic triple negative breast cancer, diabetes type II, morbid obesity who presents to the [facility] emergency Department by EMS after worsening progressive weakness over the past week. She has numerous electrolyte abnormalities, pain from metastatic disease, and constipation. Acute Hyperkalemia, present on admission. Active. - This may be 2nd to GUS, constipation, or a rare spontaneous tumor lysis syndrome. - Potassium on admission 6.4 and remains elevated. - EKG showed low voltage, Sinus rhythm no ST changes and no T wave changes. - Echo was negative for pericardial effusions or tamponade. - Albuterol nebulizer 20 mg given. - Calcium gluconate given several times. - Initially, 10 units regular given with D10 running concurrently. - Kayexalate was given 04/04/17, Important to note, patient has not had a bowel movement for several days. - BMP labs every 4 hours, and will d/c Q4H checks at 4pm today. - Golytely given 04/05/17 awaiting BM. - CCU and nephrology team consulted. recommendations greatly appreciated. - Not a candidate for Hemo-dialysis at this time. Triple negative metastatic breast cancer, present on admission. Active. - Dr. Jay with oncology is patient's outpatient oncologist, Dr. Palacios is currently seeing the patient. Hyponatremia, present on admission. Active. - Sodium 118 on admission with normal serum osmol of 281. this may represent pseudo-hyponatremia. - Urine osmol 364, Urine sodium <10, Serum sodium 120, Serum osmol 281, - Nephrology consulted, recommendations appreciated. - Fluids discontinued Acute kidney injury, present on admission. Active. - Creatinine 1.79 on admission, with unknown baseline. - Associated elevated uric acid at 14.4. - Continue IV fluids. - Likely hepatorenal syndrome per nephrology consultation - IV albumin 04/04/17 - Fluids discontinued Lactic acidosis, present on admission. Active. - Lactic acid on admission 5.1, on repeat 4.3. - Will trend Q2H till Lactic acid < 2. Acute urinary retention, present on admission. Active. - Patient had 2 L urine out with straight cath. - Renal US shows no nephrolithiasis or obstruction. Leukocytosis, present on admission. Active. - White count on admission 25.9. - Patient's previous admissions with white count as high as 65.7. - From previous oncology prog notes: Differential for the patient's neutrophilia includes a leukemoid reaction from underlying infection, myelopthysis process from disease progression within the marrow, secondary myeloid neoplasia from previous chemotherapy exposure (MDS, Acute Leukemia), and finally demargination from prechemotherapy steroids. Morbid obesity, present on admission. Active. Protein malnutrition, present on admission. Active. - IV albumin started Hypothyroidism, present on admission. Controlled. - Continue home synthroid. Diabetes Type II, present on admission. Active. - Medium dose, nutritional and correctional insulin. - Holding home metformin. Acetaminophen for mild pain when necessary. Bowel regimen Senna and MiraLAX scheduled and PRN. Zofran when necessary for nausea and vomiting. SubQ heparin held for now. SCDs in place. High-risk medications: Pain Evaluation: Adequate Pain Control Resuscitation Status: DNR/DNI:Do Not Resuscitate/Intubate Time spent 35 minutes Attending Statement I have seen and evaluated the patient at bedside in addition to directly supervising care provided by resident physician. I agree with above documentation by Dr. Kumar on 04/05/2017. This is a very complex 42-year-old female with triple negative metastatic breast cancer very resistant to multiple rounds of chemotherapy and only amenable to palliation at this time. Multiple complications including electrode abnormalities stool impaction are likely playing a significant role in patient's discomfort , and unlike cancer may be amenable to further medical treatment . Given patient is a poor candidate for dialysis, excretion of potassium via stool or urine is really only remaining avenue available to us to return patient to some state of medical stability. Aggressive bowel regime has finally proved successful in the hope will begin date in the normalization of at least some electrolyte values, potassium was specifically. Hyponatremia may contain to be an issue we appreciate nephrology real estate listing consultant's assistance with this condition. We will continue to balance patient comfort with possible medical interventions which may help to prolong meaningful life in this patient who is understanding of her poor prognosis but would certainly appreciate a degree of medical intervention if it would improve quality of life and afford her possibility to return home for even a short period. RANULFO KUMAR DO Apr 05, 2017 06:35 John Maciel DO Apr 05, 2017 18:44
[2017-04-05 12:14] VITALS: BP 129/55; PULSE 109; RESP 14; O2SAT 97
[2017-04-05] MEDS: Ondansetron 2 mg/mL 2 mL Inj IVPUSH PRN (12:51)
--- NOTE | 2017-04-05 13:52 | CCS NOTE ---
[facility] [address], [address] [address] MEDICAL ONCOLOGY OFFICE NOTE PATIENT: SUDHEER PEREZ : 1975 MR#: [id number] DATE: 04/03/2017 JOB ID: [id number] DATE: 04/05/2017 SUBJECTIVE: The patient has been managed with the help of multiple disciplines including Critical Care as well as now Nephrology. Her condition, at least on the level of lab studies, has not gotten any worse but has not improved much either. The patient subjectively believes that she feels somewhat stronger and is able to move her body a little more in the bed. PHYSICAL EXAMINATION: Her vitals have remained afebrile and blood pressure is normal around 125/70, heart rate around 100, O2 sat 97% on 1 L. Abdomen is severely distended. She has anasarca in the abdominal wall and severe edema in her legs bilaterally. There is also some purplish discoloration in the toes. LABORATORIES: Show a sodium of 118 still, potassium elevated with 6.4, BUN 45, creatinine 1.9. Bicarb was upon admission low with 16, currently however improved to 19. LFTs show an improvement of bilirubin to 1.1. LFTs also slightly improved but still abnormal. Albumin is better with 2.7 with albumin infusion as compared to 1.9. Cultures so far negative. MEDICATIONS: Levothyroxine 100 mcg p.o. daily, allopurinol 200 mg p.o. b.i.d., cefepime, morphine p.r.n. IMAGING: The patient had a CT of the abdomen and pelvis without contrast yesterday showing a moderate amount of ascites, a small to moderate right pleural effusion, small left pleural effusion, liver metastases, diffuse changes in the skeletal system consistent with skeletal metastases, and splenomegaly. ASSESSMENT AND PLAN: A 42-year-old lady with triple receptor negative aggressive widely metastatic breast cancer that has been refractory to treatment with diffuse bone marrow metastases causing cytopenias. Her platelet count is in the 20s now and she has stress leukocytosis. She has received one dose of anti-PD1 antibody under the care of Dr. Jay about 10 days ago on Keiry 21 with pembrolizumab. She had presented with diffuse weakness and a number of severe lab abnormalities including severe hyponatremia, hyperkalemia, elevated lactic acid, low sodium bicarb, and severely elevated uric acid and renal failure. The etiology of this is not exactly clear and multiple disciplines including Critical Care and Nephrology are involved. I spoke with Dr. Menon and Dr. Hoover of Nephrology today. Over the last 48 hours the patient's status has not deteriorated, but it has not improved either based on the lab levels. She subjectively feels somewhat better. I agree with Dr. Hoover's idea to check the electrolytes in the venous blood gas to make sure they are not artifactually abnormal and confirm this level of hyponatremia and hyperkalemia since the measures taken so far have not made any made any change in the numbers. Also, her creatinine has not changed much. Stable lytes, however, at 1.9. I also agree with albumin infusion to improve oncotic pressure and treat her anasarca. The possibility that pembrolizumab can cause endocrinopathies due to an autoimmune process is certainly in the differential diagnosis, which can cause adrenal insufficiency and hypopituitarism and hypothyroidism, etc. However, it would be usually based on an immune response generated against these areas and it would be highly unusual to present with this symptomatology within nine days of the first dose, developing for example autoimmune Jaden's disease or hypophysitis. She has been empirically started on dexamethasone by me at 4 mg twice daily since Thursday to cover several reasons including spinal cord issues. Her blood pressure is normal and she is not hypotensive. One option would be to change dexamethasone to prednisone to have a better mineralocorticoid effect that dexamethasone is relatively weak with. Therefore, I recommend to switch dexamethasone to prednisone 20 mg b.i.d. for a few days and assess the response. Lastly, the differential diagnosis of a spontaneous tumor lysis has been entertained given the amount of disease burden in the bone marrow and skeletal system, but I agree that her phosphorus was not elevated, but the uric acid is certainly striking. Allopurinol has been started and per nephrology recommendation bicarbonate would be switched to oral.
[2017-04-05] MEDS ORDERED: Insulin Human REGular 300 Unit/3 mL Inj SUBQ SCH (14:30)
--- NOTE | 2017-04-05 14:36 | PCM.PNNEPH ---
Subjective Date of Service Apr 05, 2017 Subjective Hyponatremia and hyperkalemia have persisted. Normal seurm osm noted. ABG unable to measure Na level. They can measure only K. Unable to move her bowel. failed enema and lactulose. LE becomes more swollen. Exam Vital Signs Vital Sign - Last Date Time Temp Pulse Resp B/P Pulse Ox O2 Delivery O2 Flow Rate FiO2 04/05/17 12:14 109 14 129/55 97 Room Air 04/05/17 09:08 1.00 04/05/17 08:11 37.0 Intake and Output 04/04/17 04/04/17 04/05/17 Cumulative From/Thru 15:00 23:00 07:00 04/03/17 10:39 - 04/05/17 06:35 Intake Total 1010 ml 525 ml 6112 ml Output Total 250 ml 350 ml 1800 ml Balance 760 ml 175 ml 4312 ml Intake Oral 600 ml 200 ml 1160 ml IV Total 410 ml 325 ml 4952 ml Output Urine Total 250 ml 350 ml 1800 ml # Voids 1 # Bowel Movements 0 0 Exam General appearance: Awake, alert, oriented x3, in no acute distress. HEENT: Mild pallor. No jaundice. No JVD. Atraumatic. Moist mucous membranes. Heart: Tachycardic. Normal S1, S2. No murmurs, rubs, or gallops. Distant heart sounds. Lungs: Decreased breath sounds at bases. No wheezing. No rhonchi. Abdomen: Soft. Moderate distention. Nontender. Decreased bowel sounds. Obese. Unable to assess liver and spleen given her body habitus. Extremities: 2+ edema on the lower extremity. No rash, no cyanosis. No clubbing of fingers. Lab and Diagnostics Result Diagram: 04/05/17 0512 04/05/17 0856 Microbiology Item Value Date Time MRSA (PCR) Received 04/03/17 1527 Nose Pending Urine Culture Received 04/03/17 1225 Urine,Random Pending Blood Culture Received 04/03/17 1155 Blood Aerobic Bottle Pending Blood Culture Received 04/03/17 1045 Blood Aerobic And Anaerobic Bottle Pending X-Rays, CTs and MRIs X-RAY CHEST ONE VIEW, PORTABLE IMPRESSION: 1. Small right-sided pleural effusion with associated atelectasis. 2. Probable enlargement of the heart with moderate vascular congestion. Please correlate clinically to exclude developing pulmonary edema. Dictated by: Won Thornton M.D. on 04/03/2017 at 10:50 US ABDOMEN, LIMITED IMPRESSION: Small amount of ascites present decreased from prior examination. Volume is not sufficient for safe paracentesis. Dictated by: Roland Gomez [facility] Interpreted: Chris Randall MD on 04/03/2017 at 12 :19 X-RAY KUB IMPRESSION: Study severely degraded secondary to portable technique and the patient's body habitus. Grossly there is no evidence of bowel obstruction. If there is persistent clinical concern for bowel obstruction recommend abdominal and pelvic CT with contrast. Dictated by: Chris Randall M.D. on 04/03/2017 at 16:04 Cardiac Echo Impressions Echocardiogram Report Interpretation Summary Left ventricular systolic function is normal with the ejection fraction grossly estimated to be 70-75%. There are no obvious focal wall motion abnormalities noted but poor endocardial definition reduces the sensitivity for the detection of such. The left ventricular cavity is small and wall thickness is mildly increased. Cannot assess for LVOT obstruction but there is no obvious anterior motion of the mitral valve leaflet. Diastolic function could not be accurately assessed due to unobtainable data. The right ventricle is not well visualized but grossly appears normal in size with probable normal systolic function. Pulmonary artery pressures cannot be estimated because of the lack of a measurable TR jet velocity. The atria are not well visualized. There is no obvious significant valvular heart disease but sensitivity is decreased because of limited images. There is no pericardial effusion. The patient was in sinus tachycardia with heart rates between 124-143 bpm during the exam. Reading Physician:04:52 PM Plan Impression 1. Hyponatremia. normal osm. ? pseudohyponatremia, unclear etiology. 2. High osmolal gap Calculated osm-measured osm = 282-265 = 17. (normal ~ 10). DDx: lactic acidosis, ketoacidosis, less likely ethylene glycol, methanol, isopropyl alc, mannitol, paraproteinemia , hyperTG. 3. High anion gap met acidosis (15) 4. Persistent hyperkalemia in the setting of chronic constipation. 5. GUS, low urine Na, low effective circulating volume, increased total body water. - DDx: HRS, increased intraabd pressure 5. Abnormal liver function and ascites. 6. Metastatic breast cancer. 7. Elevation of uric acid, potential tumor lysis syndrome. Yet, patient has normal phosphorus. 6. Chronic hypocalcemia. h/o zometra administration. PTH/vitD pending. 7. Elevation of procalcitonin. 8. Hypotension. 9. Chronic leukocytosis. 10. Thrombocytopenia. Plan: IV lasix and IV alb q 12hr. Measure Na and K via VBG. Repeat uric acid, lactic acid, ETOH, ethylene glycol, methanol. Continue fluid restriction. Monitor bladder pressure. No urgent HD required at this moment. [employer] would give us privileges to manage her fluid and electrolytes. Yet, placing HD catheter can be very challenging in thrombocytopenic and coagulopathic patient. Her prognosis is extremely poor. DW heme/onc and ICU team. Fatou Hoover MD Apr 05, 2017 14:36
[2017-04-05] MEDS: Furosemide 10 mg/mL 4 mL Inj IVPUSH SCH (14:51)
[2017-04-05] MEDS: Albumin 25% 25 GM in IV Premix 1 EACH IV SCH (14:51)
[2017-04-05 15:03] VITALS: BP 130/49; PULSE 110; RESP 15; O2SAT 97
--- NOTE | 2017-04-05 15:25 | NUR ---
BM/pain/electrolytes 1L Colyte solution completed by patient with good effect. Incontinent of stool, FMS placed for patient comfort. Moderate amount of dark green liquid stool noted in drainage bag. Pt reports improvement in abdominal pain and distention, denies need for pain medication at this time. Lasix and albumin given as scheduled. MD aware of abnormal electrolyte values, continuing to monitor.
[2017-04-05] MEDS: 0.9% Sodium Chloride 250 ML IV SCH (16:15)
--- NOTE | 2017-04-05 16:27 | NUR ---
Social Work Note: Screen note Data& Assessment: EMR reviewed. Camelia Barahona is a 42 year old female admitted on 04/03/2017 for hyponatremia and ARF. Pt also has end stage breast cancer per MD. Pt has [employer] insurance coverage and is followed by Dr. Palacios in the community. Pt lives in [place] and is independent at baseline. Per MD order, SW attempted to meet with pt at bedside to provide Hospice list for preferences and arrange and informational visit. Pt had a friend at bedside and request SW follow up with her at a later time. Pt did request information on the process of obtaining her medical records for social security purposes. SW to follow up with pt tomorrow. Plan: SW to follow for medical prognosis and follow up with pt regarding hospice informational visit. SW to continue to follow. JASON Flanagan
[2017-04-05 20:00] VITALS: BP 131/81; PULSE 111; RESP 15; O2SAT 96
[2017-04-06] VITALS (9 sets, daily range): BP systolic 109–148; BP diastolic 65–82; PULSE 108–111; RESP 8–18; O2SAT 93–97
[2017-04-06] MEDS: Cefepime Inj 2,000 MG in Dextrose 5% Minibag Plus 100 ML IV SCH ×3 (00:09→16:47)
[2017-04-06] MEDS: Insulin Human REGular 300 Unit/3 mL Inj SUBQ SCH ×4 (00:15→18:39)
[2017-04-06 02:04] LABS: Mean Corpuscular Hemoglobin 30.9 pg (27.0-35.0); Mean Corpuscular Volume 100.8 fL (81-100)
[2017-04-06 02:05] LABS: Platelet Count 27 bil/L (150-400)
--- NOTE | 2017-04-06 02:06 | NUR ---
RESPIRATORY pt sob with any exertion, can not lay flat on on left side, hob up, pt tolerates tilt to right and bed on continuous rotation, very weak leg movement, arms somewhat weak, pt asleep most of the night but conversed for 1-2 hrs during the evening portion of shift with family, ls=decreased t/o r>l, resp rate=10-12 bpm asleep and upper teens to 20 when awake, sats on one liter o2 per nc= mid to upper 90's, pt c/o nose being very dry-improved with humidified o2, pitting edema to feet/ankles/lower legs, non pitting to upper legs/abd/arms, feet dusky, toes and bottoms of feet purple tent and cool, pt states this is her baseline, weak pulses, adequate amount of uop per f/c, fms intact with mod amount of liquid brown stool, abd round/distended, bt present, pt taking po sips of colyte prep during the night, ok with md to take sips instead of goal being finishing colyte prep jug, two people needed to turn pt side to side to check fms and change draw sheet, pt a/o times three, coop, pleasant, hs care done-including partial bath, oral care and gown and linen changes, pt states she feels much better after hs care, pt tolerated meds as ordered, pt denies any pain except with turning to change draw sheet, see ccu flow sheet, Addendum: 04/06/17 at 0456 by LIZETH OCAMPO RN am lab results passed on to night resident, no new orders, resident states no need to do uap,
[2017-04-06 02:18] LABS: BASOPHILS % (AUTO) 0 % (0-3); EOSINOPHILS % (AUTO) 0 % (0-5); MONOCYTES % (AUTO) 6 % (4-12); NEUTROPHILS % (AUTO) 75 % (40-74)
[2017-04-06] MEDS: Furosemide 10 mg/mL 4 mL Inj IVPUSH SCH ×2 (04:23→14:56)
[2017-04-06] MEDS: Albumin 25% 25 GM in IV Premix 1 EACH IV SCH ×2 (04:23→14:56)
[2017-04-06] MEDS: Tolterodine ER 2 mg ER24 Capsule PO SCH (08:09)
--- NOTE | 2017-04-06 09:10 | NUR ---
Social Work Note: Continued Discharge Planning Data& Assessment: Per MD order, SW met with pt at bedside to present Hospice List for preferences and discuss arranging hospice informational visit. Pt explained that she will "think about it." Pt made a comment about potentially "not leaving the hospital." If pt prognosis is not as poor as pt believes at this time, there is the possibility pt may change her mind about an informational visit in order to prepare for a potential discharge home. notified. SW to continue to follow for pt prognosis and r/o hospice informational visit. Plan: Anticipated discharge home when medically ready with family support vs. home with hospice when medically stable. SW to continue to follow for pt prognosis and r/o hospice informational visit. JASON Flanagan Addendum: 04/06/17 at 1130 by MEIR LYNNE notified SW that pt is now agreeable to Hospice informational visit. ANNABELLE met with pt at bedside and provided Hospice list for preferences. Pt did not have a preference but agreed to refer to whoever could see her soonest in the hospital. Hospice [facility] is able to see pt and pt sister at bedside this morning at 11:15am. Pt agreeable to this time. Pt sister notified. SW to follow up with pt and pt sister after informational visit is completed to discuss discharge planning and for pt to sign SHANNON so pt sister is able to obtain medical records for her on her behalf. ANNABELLE to continue to follow. JASON Flanagan Addendum: 04/06/17 at 1610 by MEIR JEFFERSON SS Per Chaparrita from Hospice, pt signed consents. Hospice plans to open in pt's home 04/09/2017 at 11:00am so pt would need to be discharge by 10:00am that morning. Equipment delivery in the home is scheduled for Thursday04/08/2017. notified. JASON Flanagan
--- NOTE | 2017-04-06 09:37 | PCM.PNSURG ---
Subjective Date of Service: Apr 06, 2017 Date of Service: Apr 06, 2017 Visit Information: Reason for Visit Hyponatremia,Arf,Hyperkalemia,Breast Ca, opioid induced constipation Date of Admission: Apr 03, 2017 at 13:12 Hospital Day # 4 Subjective: Patient reports feeling okay this morning. She continues to have diffuse crampy abdominal pain. She has completed approximately half of her GoLYTELY. She is tolerating a clear liquid diet. She had 400 mL of stool collected through fecal management system. Gastrointestinal: Tolerating Oral Feedings, No N/V Objective Vital Sign- Last 8 Hours Date Time Temp Pulse Resp B/P Pulse Ox O2 Delivery O2 Flow Rate FiO2 04/06/17 04:00 111 04/06/17 04:00 Supplement Oxygen 04/06/17 04:00 36.5 111 12 136/69 96 Nasal Cannula Intake and Output- Last 8 Hour 04/06/17 Cumulative From/Thru 07:00 04/03/17 10:39 - 04/06/17 06:13 Intake Total 702 ml 8528 ml Output Total 1050 ml 3475 ml Balance -348 ml 5053 ml Intake Oral 360 ml 2920 ml IV Total 342 ml 5608 ml Output Urine Total 650 ml 2875 ml Stool Total 400 ml 600 ml # Voids 1 # Bowel Movements 2 General: Alert, Cooperative, No Acute Distress Neck: Supple Lungs: Clear to Auscultation, Other (poor air movement) Heart: Other (tachycardic, regular rhythm) Abdomen: Firm, Non-tender, Distended, Other (transverse well healed scar superior to umbilicus, small mass protruding in left upper quadrant that is easily reducible. ) Extremities: Warm, Edema Localized (pitting edema to high ankle bilaterally) Result Diagram: 04/06/17 01504/06/17 015 Lab & Micro Results: Lactic acid 2.2, AST 116, ALP 40, alkaline phosphatase 396, albumin 2.8 Diagnostics: PROCEDURE: CT ABDOMEN AND PELVIS WITHOUT CONTRAST IMPRESSION: 1. No definite evidence of bowel obstruction as clinically queried. There is incomplete inclusion of a few anterior bowel loops on the current study due to body habitus and patient positioning. 2. Moderate amount of ascites in the abdomen and pelvis, increased from the prior study. 3. Small to moderate right pleural effusion and trace left effusion with bibasilar compressive atelectasis and consolidation. 4. Heterogeneous appearance of the liver with ill-defined metastatic lesions appear similar to the prior study. Diffuse blastic metastatic disease redemonstrated throughout the visualized osseous structures. 5. Slightly increased pelvocaliectasis in the renal collection systems bilaterally. 6. Splenomegaly again noted. Dictated by: Mikael Cancino M.D. on 04/04/2017 at 22:26 Additional Information: Fecal management system in place Assessment & Plan Impression This is an unfortunate 42-year-old female with triple negative metastatic breast cancer, diabetes, and morbid obesity admitted to the hospital for progressive worsening weakness for the past one week. The patient also has had increased abdominal girth and change in bowel movements in which she has more constipation most likely opioid induced. During hospital stay, the patient has tried one dose of methylnaltrexone subcutaneous which caused her more pain and without any bowel movement. The patient has also been given senna and mineral oil enemas without any relief. Patient started GoLYTELY 4 L to be used to help patient have a bowel movement given the fact that the CT scan has no evidence of obstruction. She has completed approximately half at this time. In terms of maintenance, I would recommend the patient should be on a good a bowel regimen and recommend Amitiza given the fact that this FDA approved for opioid induced constipation 8 mcg by mouth twice a day once GoLYTELY has been completed. Problems: Plan 1. Finish GoLYTELY 4 L x1. 2. After completion of GoLYTELY Amitiza 8 mcg by mouth twice a day for opioid induced constipation. 3. Will continue to follow. Pain Management: Per hospitalist team Resuscitation Status: DNR/DNI:Do Not Resuscitate/Intubate copies to: Juno Alcaraz MD, Erika R DO Apr 06, 2017 08:16
--- NOTE | 2017-04-06 09:56 | PCM.PNMED ---
Subjective Date of Service Apr 06, 2017 Subjective Unfortunate 42 yo with metastatic breast CA, progressive despite gemcitabine, [place], docletaxol, pembrolizumab. Admitted with obstipation and abdominal distension, GUS and multiple metabolic derangements including hyponatremia, hyperlkalemia, hyperuricemia. Awake and alert. Appears comfortable. Denies pain, No flatus, Rectal tube in place Note change in code status to DNR/DNI after discussion with Oncology Exam Vital Signs Vital Sign - Last Date Time Temp Pulse Resp B/P Pulse Ox O2 Delivery O2 Flow Rate FiO2 04/06/17 09:51 110 04/06/17 08:30 Supplement Oxygen 04/06/17 08:30 36.5 8 134/67 96 1.00 Intake and Output 04/05/17 04/05/17 04/06/17 Cumulative From/Thru 15:00 23:00 07:00 04/03/17 10:39 - 04/06/17 06:13 Intake Total 1714 ml 702 ml 8528 ml Output Total 625 ml 1050 ml 3475 ml Balance 1089 ml -348 ml 5053 ml Intake Oral 1400 ml 360 ml 2920 ml IV Total 314 ml 342 ml 5608 ml Output Urine Total 425 ml 650 ml 2875 ml Stool Total 200 ml 400 ml 600 ml # Voids 1 # Bowel Movements 2 2 Exam Obese, pale, ill appearing woman in NAD Lungs high diaphragms by auscultation, otherwise CTA CV RRR, nl S1S2, no m/g/r Abd Abd wall edema, not grossly tender, rare BTs Ext 3+ LE edema IVs and Medications Medications Reviewed: Medications were reviewed in detail Lab and Diagnostics Result Diagram: 04/06/17 0151 04/06/17 0151 Microbiology Item Value Date Time MRSA (PCR) Received 04/03/17 1527 Nose Pending Urine Culture Received 04/03/17 1225 Urine,Random Pending Blood Culture Received 04/03/17 1155 Blood Aerobic Bottle Pending Blood Culture Received 04/03/17 1045 Blood Aerobic And Anaerobic Bottle Pending X-Rays, CTs and MRIs X-RAY CHEST ONE VIEW, PORTABLE IMPRESSION: 1. Small right-sided pleural effusion with associated atelectasis. 2. Probable enlargement of the heart with moderate vascular congestion. Please correlate clinically to exclude developing pulmonary edema. Dictated by: Won Thornton M.D. on 04/03/2017 at 10:50 US ABDOMEN, LIMITED IMPRESSION: Small amount of ascites present decreased from prior examination. Volume is not sufficient for safe paracentesis. Dictated by: Roland Gomez [facility] Interpreted: Chris Randall MD on 04/03/2017 at 12 :19 X-RAY KUB IMPRESSION: Study severely degraded secondary to portable technique and the patient's body habitus. Grossly there is no evidence of bowel obstruction. If there is persistent clinical concern for bowel obstruction recommend abdominal and pelvic CT with contrast. Dictated by: Chris Randall M.D. on 04/03/2017 at 16:04 Cardiac Echo Impressions Echocardiogram Report Interpretation Summary Left ventricular systolic function is normal with the ejection fraction grossly estimated to be 70-75%. There are no obvious focal wall motion abnormalities noted but poor endocardial definition reduces the sensitivity for the detection of such. The left ventricular cavity is small and wall thickness is mildly increased. Cannot assess for LVOT obstruction but there is no obvious anterior motion of the mitral valve leaflet. Diastolic function could not be accurately assessed due to unobtainable data. The right ventricle is not well visualized but grossly appears normal in size with probable normal systolic function. Pulmonary artery pressures cannot be estimated because of the lack of a measurable TR jet velocity. The atria are not well visualized. There is no obvious significant valvular heart disease but sensitivity is decreased because of limited images. There is no pericardial effusion. The patient was in sinus tachycardia with heart rates between 124-143 bpm during the exam. Reading Physician:04:52 PM Assessment & Plan Miss Camelia Barahona is a very pleasant 42-year-old lady with a past medical history significant for metastatic triple negative breast cancer, diabetes type II, morbid obesity who presents to the [facility] emergency Department by EMS after worsening progressive weakness over the past week. She has numerous electrolyte abnormalities, pain from metastatic disease, and constipation. Current management of the above per her primary team and other consultants. [facility] will sign off for now but be available later if we can contribute to her care. Resuscitation Status: DNR/DNI:Do Not Resuscitate/Intubate Agusto Estrada MD Apr 06, 2017 09:56 Acute kidney injury, present on admission. Active. - Creatinine 1.79 on admission, with unknown baseline. - Associated elevated uric acid at 14.4. - Continue IV fluids. - Likely hepatorenal syndrome per nephrology consultation - IV albumin 04/04/17 - Fluids discontinued Lactic acidosis, present on admission. Active. - Lactic acid on admission 5.1, on repeat 4.3. - Will trend Q2H till Lactic acid < 2. Acute urinary retention, present on admission. Active. - Patient had 2 L urine out with straight cath. - Renal US shows no nephrolithiasis or obstruction. Leukocytosis, present on admission. Active. - White count on admission 25.9. - Patient's previous admissions with white count as high as 65.7. - From previous oncology prog notes: Differential for the patient's neutrophilia includes a leukemoid reaction from underlying infection, myelopthysis process from disease progression within the marrow, secondary myeloid neoplasia from previous chemotherapy exposure (MDS, Acute Leukemia), and finally demargination from prechemotherapy steroids. Morbid obesity, present on admission. Active. Protein malnutrition, present on admission. Active. - IV albumin started Hypothyroidism, present on admission. Controlled. - Continue home synthroid. Diabetes Type II, present on admission. Active. - Medium dose, nutritional and correctional insulin. - Holding home metformin. Acetaminophen for mild pain when necessary. Bowel regimen Senna and MiraLAX scheduled and PRN. Zofran when necessary for nausea and vomiting. SubQ heparin held for now. SCDs in place. High-risk medications: Resuscitation Status: DNR/DNI:Do Not Resuscitate/Intubate Agusto Estrada MD Apr 06, 2017 09:56
[2017-04-06] MEDS: 0.9% Sodium Chloride 250 ML IV SCH (10:20)
--- NOTE | 2017-04-06 11:44 | NUR ---
Faxed clinicals to Hospice per RAMP JOCKEY. updated RAMP JOCKEY
--- NOTE | 2017-04-06 12:02 | PCM.PNNEPH ---
Subjective Date of Service Apr 06, 2017 Subjective She has had multiple loose BMs, rectal tube placed. K trended. 5.7. Na 123. BP improved. UOP improved. Exam Vital Signs Vital Sign - Last Date Time Temp Pulse Resp B/P Pulse Ox O2 Delivery O2 Flow Rate FiO2 04/06/17 09:51 110 04/06/17 08:30 Supplement Oxygen 04/06/17 08:30 36.5 8 134/67 96 1.00 Intake and Output 04/05/17 04/05/17 04/06/17 Cumulative From/Thru 15:00 23:00 07:00 04/03/17 10:39 - 04/06/17 06:13 Intake Total 1714 ml 702 ml 8528 ml Output Total 625 ml 1050 ml 3475 ml Balance 1089 ml -348 ml 5053 ml Intake Oral 1400 ml 360 ml 2920 ml IV Total 314 ml 342 ml 5608 ml Output Urine Total 425 ml 650 ml 2875 ml Stool Total 200 ml 400 ml 600 ml # Voids 1 # Bowel Movements 2 2 Exam General appearance: Awake, alert, oriented x3, in no acute distress. HEENT: Mild pallor. No jaundice. No JVD. Atraumatic. Moist mucous membranes. Heart: Tachycardic. Normal S1, S2. No murmurs, rubs, or gallops. Lungs: Decreased breath sounds at bases. No wheezing. No rhonchi. Abdomen: Soft. Moderate distention. Nontender. Decreased bowel sounds. Obese. Rectal tube in place. Extremities: 2+ edema on the lower extremity. No rash, no cyanosis. No clubbing of fingers. Lab and Diagnostics Result Diagram: 04/06/17 0151 04/06/17 0151 Microbiology Item Value Date Time MRSA (PCR) Received 04/03/17 1527 Nose Pending Urine Culture Received 04/03/17 1225 Urine,Random Pending Blood Culture Received 04/03/17 1155 Blood Aerobic Bottle Pending Blood Culture Received 04/03/17 1045 Blood Aerobic And Anaerobic Bottle Pending X-Rays, CTs and MRIs X-RAY CHEST ONE VIEW, PORTABLE IMPRESSION: 1. Small right-sided pleural effusion with associated atelectasis. 2. Probable enlargement of the heart with moderate vascular congestion. Please correlate clinically to exclude developing pulmonary edema. Dictated by: Won Thornton M.D. on 04/03/2017 at 10:50 US ABDOMEN, LIMITED IMPRESSION: Small amount of ascites present decreased from prior examination. Volume is not sufficient for safe paracentesis. Dictated by: Roland Gomez [facility] Interpreted: Chris Randall MD on 04/03/2017 at 12 :19 X-RAY KUB IMPRESSION: Study severely degraded secondary to portable technique and the patient's body habitus. Grossly there is no evidence of bowel obstruction. If there is persistent clinical concern for bowel obstruction recommend abdominal and pelvic CT with contrast. Dictated by: Chris Randall M.D. on 04/03/2017 at 16:04 Cardiac Echo Impressions Echocardiogram Report Interpretation Summary Left ventricular systolic function is normal with the ejection fraction grossly estimated to be 70-75%. There are no obvious focal wall motion abnormalities noted but poor endocardial definition reduces the sensitivity for the detection of such. The left ventricular cavity is small and wall thickness is mildly increased. Cannot assess for LVOT obstruction but there is no obvious anterior motion of the mitral valve leaflet. Diastolic function could not be accurately assessed due to unobtainable data. The right ventricle is not well visualized but grossly appears normal in size with probable normal systolic function. Pulmonary artery pressures cannot be estimated because of the lack of a measurable TR jet velocity. The atria are not well visualized. There is no obvious significant valvular heart disease but sensitivity is decreased because of limited images. There is no pericardial effusion. The patient was in sinus tachycardia with heart rates between 124-143 bpm during the exam. Reading Physician:04:52 PM Plan Impression 1. Hyponatremia. normal osm. ? pseudohyponatremia, unclear etiology. 2. High osmolal gap Calculated osm-measured osm = 282-265 = 17. (normal ~ 10). Today gap is 13 (288-275). Lactic acid has decreased. The cause of high osm gap likely due to lactic acidosis. 3. High anion gap met acidosis. 4. Persistent hyperkalemia in the setting of chronic constipation. improving after administration of Golytely. 5. GUS, low urine Na, low effective circulating volume, increased total body water. - DDx: HRS, increased intraabd pressure. 5. Abnormal liver function and ascites. 6. Metastatic breast cancer. 7. Elevation of uric acid, potential tumor lysis syndrome. Yet, patient has normal phosphorus. 6. Chronic hypocalcemia. h/o zometra administration. PTH/vitD pending. 7. Elevation of procalcitonin. 8. Hypotension. 9. Chronic leukocytosis. 10. Thrombocytopenia. Plan: IV lasix and IV alb q 12hr. Continue fluid restriction. Monitor bladder pressure. No urgent HD required at this moment. Fatou Hoover MD Apr 06, 2017 12:02
[2017-04-06] MEDS: oxyCODONE-Acetamin 5-325 mg Tablet PO PRN (12:35)
--- NOTE | 2017-04-06 14:08 | NUR ---
Respiratory/Pain/Hospice/GI Pt on 1L NC to maintain SpO2 93% or >. Reports significant discomfort and difficulty breathing when laying flat for boost up in bed and IAP readings. LLQ abd pain, IV morphine and percocet effective. Hospice in to meet with pt, Dr. Jacobs, this RN. and pt's sister, in for consult; pt amicable to hospice services and signed consent. Daughter visited this afternoon, updated on POC and hospice visit information. Pt prefers continuous lateral rotation therapy by the bed, than Q2H turns. FMS functioning appropriately, draining small amounts of liquid stool today. Uses call light to make needs known.
--- NOTE | 2017-04-06 14:10 | NUR ---
NUTRITION FOLLOW UP: ASSESS: 42 YO F admitted to CCU with hyponatremia, ARF, hyperkalemia. Pt has been on Clear liquids diet X 3 days. Possible hospice info visit per rounds. PMHx: Metastatic breast cancer, type 2 diabetes, Class III obesity. DIET: Clear liquids. PO intake 75%. LABS: Na 123, K+ 5.7, BUN 49, Cr 1.90, Glu 202, Ca 7.4, Lactic acid 2.2, AST 46, ALT 40, Alb 2.8 MEDICATIONS: Reviewed. Insulin, Albumin, Lasix, Decadron. GI: 2 BM 7/2. SKIN: No issues noted. ANTHROPOMETRICS: Current Wt: 136.3 kg, BMI: 43.1 kg/m2. IBW: 68.2 kg (199.9% IBW), Adj BW: 85.2 kg. Weight loss: 5.2 kg x 6 months. This is likely to be inaccurate due to the significant fluid retention currently. ESTIMATED NEEDS (BMI): Calories: 6213-2928 kcal/day (25-30 kcal/kg Adj. BW) Protein: 128-153 g/day (1.2-1.6 g/kg Adj. BW) NUTRITION DIAGNOSIS: 1) Inadequate oral intake related to increased nutrient needs for the disease process, as evidenced by > 3.67% weight loss x 6 months.---PERSISTS. Pt has been on clear liquids X 3 days. INTERVENTION: 1) Will await plan of care decisions. 2) Advance diet as tolerated. MONITOR/EVALUATE: Diet advance/tolerance, PO intake, labs, GI/nutrition status, POC. Follow per high nutrition risk guidelines.
--- NOTE | 2017-04-06 14:42 | PCM.PNMED ---
Subjective Date of Service Apr 06, 2017 Subjective Overnight Events: No acute overnight events. Patient is awaken in bed, resting comfortably, on oxygen. Reports feeling tired this morning. Denies headache, dizziness, nausea and vomiting, chest pain, fever , and chills, abdominal pain, diarrhea or constipation.. Exam Vital Signs Vital Sign - Last Date Time Temp Pulse Resp B/P Pulse Ox O2 Delivery O2 Flow Rate FiO2 04/06/17 04:00 111 04/06/17 04:00 Supplement Oxygen 04/06/17 04:00 36.5 12 136/69 96 04/06/17 00:00 1.00 Intake and Output 04/05/17 04/05/17 04/06/17 Cumulative From/Thru 15:00 23:00 07:00 04/03/17 10:39 - 04/06/17 06:13 Intake Total 1714 ml 702 ml 8528 ml Output Total 625 ml 1050 ml 3475 ml Balance 1089 ml -348 ml 5053 ml Intake Oral 1400 ml 360 ml 2920 ml IV Total 314 ml 342 ml 5608 ml Output Urine Total 425 ml 650 ml 2875 ml Stool Total 200 ml 400 ml 600 ml # Voids 1 # Bowel Movements 2 2 Exam Gen.: Middle-aged obese female in no acute distress, with mentation somewhat declined from 04/04/17, but unable to fully assess as patient also awaken from sleep. Eyes: Pupils equal round reactive to light, extraocular motion intact, anicteric sclerae, noninjected conjunctiva HENT: Normocephalic atraumatic, moist mucous membranes Neck: Supple, trachea midline, no thyromegaly Cardiovascular: regular rate and rhythm, no murmurs rubs or gallops Lungs: anterior lung magaña clear to auscultation, unable to auscultate posterior lung magaña due to patient positioning. Abdomen: severely Distended, tympanic to percussion, hypoactive bowel sounds, nontender, unable to assess organomegaly due to body habitus Extremities: Cyanosis of bilateral toes, cold lower extremities, difficult to palpate pulses at both radial and dorsalis pedis and posterior tibialis, mild pitting edema noted in lower extremities bilaterally : Velazquez in place draining dark urine Skin: Warm and dry Neuro: Nonfocal cranial nerve exam, Able to move all extremities, Weak lower extremities bilaterally in both hip flexion and knee flexion Psych: Normal mood and affect, alert and oriented 3 Lab and Diagnostics Laboratory Tests 72 Hours Test 04/03/17 15:00 04/03/17 18:41 04/03/17 19:30 04/03/17 20:30 White Blood Count 25.9th/mm3 (3.8-10.1) Red Blood Count 2.93mil/mm3 (3.90-5.20) Hemoglobin 9.2g/dL (12.0-15.6) Hematocrit 29.8% (35.0-46.0) Mean Corpuscular Volume 101.7fL (81-100) Mean Corpuscular Hemoglobin 31.4pg (27.0-35.0) Mean Corpuscular Hemoglobin Concent 30.9% (32.0-37.0) Red Cell Distribution Width 22.1% (12.3-15.4) Platelet Count 41bil/L (150-400) Sodium Level 120mEq/L (134-144) 120mEq/L (134-144) Potassium Level 6.5mEq/L (3.5-5.2) 6.0mEq/L (3.5-5.2) Chloride Level 86mEq/L (97-108) 86mEq/L (97-108) Carbon Dioxide Level 20mmol/L (18-29) 16mmol/L (18-29) Blood Urea Nitrogen 36mg/dL (6-24) 36mg/dL (6-24) Creatinine 1.79mg/dL (0.57-1.00) 1.90mg/dL (0.57-1.00) Estimat Glomerular Filtration Rate 44mL/min (>59) 41mL/min (>59) Glucose Level 162mg/dL (60-99) 173mg/dL (60-99) Lactic Acid Level 4.3mmol/L (0.4-2.0) 6.7mmol/L (0.4-2.0) Calcium Level 7.1mg/dL (8.5-10.1) 7.6mg/dL (8.5-10.1) Total Bilirubin 1.3mg/dL (0.0-1.2) Aspartate Amino Transf (AST/SGOT) 130U/L (0-50) Alanine Aminotransferase (ALT/SGPT) 39U/L (0-32) Alkaline Phosphatase 370U/L (25-150) Total Protein 7.0g/dL (6.4-8.4) Albumin 1.9g/dL (3.4-5.0) Triglycerides Level 244mg/dL (0-149) Procalcitonin 6.17ng/mL (0.00-0.08) Hold [place] Top Tube Received (Received) Received (Received) Thyroid Stimulating Hormone (TSH) 21.380uIU/mL (0.450-4.500) Free Thyroxine 1.05ng/dL (0.82-1.77) Test 04/04/17 00:05 04/04/17 04:25 04/04/17 08:25 04/04/17 10:20 Sodium Level 117mEq/L (134-144) 117mEq/L (134-144) 117mEq/L (134-144) Potassium Level 6.2mEq/L (3.5-5.2) 6.2mEq/L (3.5-5.2) 6.2mEq/L (3.5-5.2) Chloride Level 84mEq/L (97-108) 84mEq/L (97-108) 82mEq/L (97-108) Carbon Dioxide Level 17mmol/L (18-29) 19mmol/L (18-29) 19mmol/L (18-29) Blood Urea Nitrogen 37mg/dL (6-24) 38mg/dL (6-24) 40mg/dL (6-24) Creatinine 1.98mg/dL (0.57-1.00) 1.95mg/dL (0.57-1.00) 1.89mg/dL (0.57-1.00) Estimat Glomerular Filtration Rate 39mL/min (>59) 40mL/min (>59) 41mL/min (>59) Glucose Level 200mg/dL (60-99) 213mg/dL (60-99) 190mg/dL (60-99) Lactic Acid Level 6.0mmol/L (0.4-2.0) 4.7mmol/L (0.4-2.0) 4.5mmol/L (0.4-2.0) Calcium Level 7.2mg/dL (8.5-10.1) 7.0mg/dL (8.5-10.1) 6.6mg/dL (8.5-10.1) White Blood Count 21.2th/mm3 (3.8-10.1) Corrected White Blood Count 20.0th/mm3 (3.8-10.1) Red Blood Count 2.77mil/mm3 (3.90-5.20) Hemoglobin 8.6g/dL (12.0-15.6) Hematocrit 27.7% (35.0-46.0) Mean Corpuscular Volume 100.0fL (81-100) Mean Corpuscular Hemoglobin 31.0pg (27.0-35.0) Mean Corpuscular Hemoglobin Concent 31.0% (32.0-37.0) Red Cell Distribution Width 22.3% (12.3-15.4) Platelet Count 33bil/L (150-400) Neutrophils (%) (Auto) 63% (40-74) Lymphocytes (%) (Auto) 12% (14-46) Monocytes (%) (Auto) 4% (4-12) Eosinophils (%) (Auto) 0% (0-5) Basophils (%) (Auto) 1% (0-3) Band Neutrophils % 16% (1-5) Metamyelocytes % 2% (0-0) Myelocytes % 1% (0-0) Nucleated Red Blood Cells 6/100 WBC (0-24) Hematology Comments Uric Acid 14.0mg/dL (2.6-7.2) Phosphorus Level 3.5mg/dL (2.5-4.9) Magnesium Level 1.6mg/dL (1.6-2.6) Procalcitonin 7.42ng/mL (0.00-0.08) Osmolality 282 (275-300) Ionized Calcium (Calculated) 2.91mg/dL (3.5-5.2) Total Protein 6.8g/dL (6.4-8.4) Test 04/04/17 13:00 04/04/17 16:49 04/04/17 21:08 04/05/17 01:00 Sodium Level 118mEq/L (134-144) 118mEq/L (134-144) 120mEq/L (134-144) 120mEq/L (134-144) Potassium Level 6.1mEq/L (3.5-5.2) 6.1mEq/L (3.5-5.2) 6.2mEq/L (3.5-5.2) 6.2mEq/L (3.5-5.2) Chloride Level 83mEq/L (97-108) 83mEq/L (97-108) 85mEq/L (97-108) 84mEq/L (97-108) Carbon Dioxide Level 20mmol/L (18-29) 19mmol/L (18-29) 18mmol/L (18-29) 20mmol/L (18-29) Blood Urea Nitrogen 40mg/dL (6-24) 41mg/dL (6-24) 40mg/dL (6-24) 44mg/dL (6- 24) Creatinine 1.91mg/dL (0.57-1.00) 1.98mg/dL (0.57-1.00) 1.98mg/dL (0.57-1.00) 2.03mg/dL (0.57-1.00) Estimat Glomerular Filtration Rate 41mL/min (>59) 39mL/min (>59) 39mL/min (>59) 38mL/min (>59) Glucose Level 193mg/dL (60-99) 229mg/dL (60-99) 209mg/dL (60-99) 198mg/dL (60-99) Calcium Level 7.0mg/dL (8.5-10.1) 7.0mg/dL (8.5-10.1) 7.1mg/dL (8.5-10.1) 7.2mg/dL (8.5-10.1) Test 04/05/17 05:12 04/05/17 08:56 04/05/17 09:45 04/05/17 13:20 White Blood Count 15.1th/mm3 (3.8-10.1) Red Blood Count 2.59mil/mm3 (3.90-5.20) Hemoglobin 8.1g/dL (12.0-15.6) Hematocrit 25.7% (35.0-46.0) Mean Corpuscular Volume 99.2fL (81-100) Mean Corpuscular Hemoglobin 31.3pg (27.0-35.0) Mean Corpuscular Hemoglobin Concent 31.5% (32.0-37.0) Red Cell Distribution Width 21.7% (12.3-15.4) Platelet Count 26bil/L (150-400) Sodium Level 120mEq/L (134-144) 118mEq/L (134-144) Potassium Level 6.6mEq/L (3.5-5.2) 6.4mEq/L (3.5-5.2) Chloride Level 86mEq/L (97-108) 84mEq/L (97-108) Carbon Dioxide Level 21mmol/L (18-29) 19mmol/L (18-29) Blood Urea Nitrogen 44mg/dL (6-24) 45mg/dL (6-24) Creatinine 1.85mg/dL (0.57-1.00) 1.90mg/dL (0.57-1.00) Estimat Glomerular Filtration Rate 42mL/min (>59) 41mL/min (>59) Glucose Level 210mg/dL (60-99) 228mg/dL (60-99) Calcium Level 7.4mg/dL (8.5-10.1) 7.5mg/dL (8.5-10.1) Total Bilirubin 1.1mg/dL (0.0-1.2) Direct Bilirubin 0.5mg/dL (0.0-0.3) Aspartate Amino Transf (AST/SGOT) 120U/L (0-50) Alanine Aminotransferase (ALT/SGPT) 37U/L (0-32) Alkaline Phosphatase 338U/L (25-150) Total Protein 7.4g/dL (6.4-8.4) Albumin 2.7g/dL (3.4-5.0) Hemoglobin A1c 5.1% (4.8-5.6) Osmolality 282 (275-300) Ketones Negative (Negative) Test 04/05/17 14:23 04/05/17 17:50 04/06/17 01:51 04/06/17 08:23 Lactic Acid Level 3.5mmol/L (0.4-2.0) 2.2mmol/L (0.4-2.0) Uric Acid 13.3mg/dL (2.6-7.2) Triglycerides Level 242mg/dL (0-149) Cholesterol Level 103mg/dL (100-199) LDL Cholesterol, Calculated 45.600mg/dL (0-99) VLDL Cholesterol 48.400mg/dL HDL Cholesterol 9mg/dL (>39) Cholesterol/HDL Ratio 11.44 (0.0-4.4) Alcohols < 10mg/dL (0-10) Sodium Level 121mEq/L (134-144) 123mEq/L (134-144) Potassium Level 5.8mEq/L (3.5-5.2) 5.7mEq/L (3.5-5.2) Chloride Level 85mEq/L (97-108) 84mEq/L (97-108) Carbon Dioxide Level 20mmol/L (18-29) 21mmol/L (18-29) Blood Urea Nitrogen 47mg/dL (6-24) 49mg/dL (6-24) Creatinine 1.80mg/dL (0.57-1.00) 1.90mg/dL (0.57-1.00) Estimat Glomerular Filtration Rate 44mL/min (>59) 41mL/min (>59) Glucose Level 189mg/dL (60-99) 202mg/dL (60-99) Calcium Level 7.6mg/dL (8.5-10.1) 7.4mg/dL (8.5-10.1) White Blood Count 16.1th/mm3 (3.8-10.1) Red Blood Count 2.65mil/mm3 (3.90-5.20) Hemoglobin 8.2g/dL (12.0-15.6) Hematocrit 26.7% (35.0-46.0) Mean Corpuscular Volume 100.8fL (81-100) Mean Corpuscular Hemoglobin 30.9pg (27.0-35.0) Mean Corpuscular Hemoglobin Concent 30.7% (32.0-37.0) Red Cell Distribution Width 21.5% (12.3-15.4) Platelet Count 27bil/L (150-400) Neutrophils (%) (Auto) 75% (40-74) Lymphocytes (%) (Auto) 2% (14-46) Monocytes (%) (Auto) 6% (4-12) Eosinophils (%) (Auto) 0% (0-5) Basophils (%) (Auto) 0% (0-3) Band Neutrophils % 11% (1-5) Metamyelocytes % 5% (0-0) Myelocytes % 1% (0-0) Hematology Comments Osmolality 288 (275-300) Total Bilirubin 1.3mg/dL (0.0-1.2) Aspartate Amino Transf (AST/SGOT) 116U/L (0-50) Alanine Aminotransferase (ALT/SGPT) 40U/L (0-32) Alkaline Phosphatase 396U/L (25-150) Total Protein 7.0g/dL (6.4-8.4) Albumin 2.8g/dL (3.4-5.0) Test 04/06/17 11:20 Ammonia 77ug/dL (18-53) Result Diagram: 04/06/17 0151 04/06/17 0151 Microbiology Item Value Date Time MRSA (PCR) Received 04/03/17 1527 Nose Pending Urine Culture Received 04/03/17 1225 Urine,Random Pending Blood Culture Received 04/03/17 1155 Blood Aerobic Bottle Pending Blood Culture Received 04/03/17 1045 Blood Aerobic And Anaerobic Bottle Pending X-Rays, CTs and MRIs X-RAY CHEST ONE VIEW, PORTABLE IMPRESSION: 1. Small right-sided pleural effusion with associated atelectasis. 2. Probable enlargement of the heart with moderate vascular congestion. Please correlate clinically to exclude developing pulmonary edema. Dictated by: Won Thornton M.D. on 04/03/2017 at 10:50 US ABDOMEN, LIMITED IMPRESSION: Small amount of ascites present decreased from prior examination. Volume is not sufficient for safe paracentesis. Dictated by: Roland Gomez [facility] Interpreted: Chris Randall MD on 04/03/2017 at 12 :19 X-RAY KUB IMPRESSION: Study severely degraded secondary to portable technique and the patient's body habitus. Grossly there is no evidence of bowel obstruction. If there is persistent clinical concern for bowel obstruction recommend abdominal and pelvic CT with contrast. Dictated by: Chris Randall M.D. on 04/03/2017 at 16:04 Cardiac Echo Impressions Echocardiogram Report Interpretation Summary Left ventricular systolic function is normal with the ejection fraction grossly estimated to be 70-75%. There are no obvious focal wall motion abnormalities noted but poor endocardial definition reduces the sensitivity for the detection of such. The left ventricular cavity is small and wall thickness is mildly increased. Cannot assess for LVOT obstruction but there is no obvious anterior motion of the mitral valve leaflet. Diastolic function could not be accurately assessed due to unobtainable data. The right ventricle is not well visualized but grossly appears normal in size with probable normal systolic function. Pulmonary artery pressures cannot be estimated because of the lack of a measurable TR jet velocity. The atria are not well visualized. There is no obvious significant valvular heart disease but sensitivity is decreased because of limited images. There is no pericardial effusion. The patient was in sinus tachycardia with heart rates between 124-143 bpm during the exam. Reading Physician:04:52 PM Assessment & Plan Miss Camelia Barahona is a very pleasant 42-year-old lady with a past medical history significant for metastatic triple negative breast cancer, diabetes type II, morbid obesity who presents to the [facility] emergency Department by EMS after worsening progressive weakness over the past week. She has numerous electrolyte abnormalities, pain from metastatic disease, and constipation. Acute Hyperkalemia, present on admission. Improving - This may be 2nd to GUS, constipation, or a rare spontaneous tumor lysis syndrome. - Potassium on admission 6.4 and remains elevated. - EKG showed low voltage, Sinus rhythm no ST changes and no T wave changes. - Echo was negative for pericardial effusions or tamponade. - Albuterol nebulizer 20 mg given. - Calcium gluconate given several times. - Initially, 10 units regular given with D10 running concurrently. - Kayexalate was given 04/04/17, Important to note, patient has not had a bowel movement for several days. Patient failed enema x 2 on 04/04/17, but did pass bowel movement 04/05/17 on golytely. Will consider restarting lactulose pending ammonia level. - BMP labs every 4 hours, and will d/c Q4H checks at 4pm 04/05/17. CMP daily. - CCU, GI and nephrology team consulted. recommendations greatly appreciated. - Not a candidate for Hemo-dialysis at this time. Triple negative metastatic breast cancer, present on admission. Active. - Dr. Jay with oncology is patient's outpatient oncologist, Dr. Palacios is currently seeing the patient. Hyponatremia, present on admission. Improving - Sodium 118 on admission with normal serum osmol of 281. this may represent pseudo-hyponatremia secondary to her cancer. - Urine osmol 364, Urine sodium <10, Serum sodium 120, Serum osmol 281, - Nephrology consulted, recommendations appreciated. - Fluids discontinued Acute kidney injury, present on admission. Active. - Creatinine 1.79 on admission, with unknown baseline. - Associated elevated uric acid at 14.4. - Could be hepatorenal syndrome per nephrology consultation - IV albumin started 04/04/17 - Fluids discontinued Lactic acidosis, present on admission. Improving - Lactic acid on admission 5.1, on repeat 4.3. 04/06/17 down to 2.2. - Repeat lactic acid in am Acute urinary retention, present on admission. Active. - Patient had 2 L urine out with straight cath. - Renal US shows no nephrolithiasis or obstruction. Leukocytosis, present on admission. improving. - White count on admission 25.9. - Patient's previous admissions with white count as high as 65.7. - From previous oncology prog notes: Differential for the patient's neutrophilia includes a leukemoid reaction from underlying infection, myelopthysis process from disease progression within the marrow, secondary myeloid neoplasia from previous chemotherapy exposure (MDS, Acute Leukemia), and finally demargination from prechemotherapy steroids. Morbid obesity, present on admission. Active. Protein malnutrition, present on admission. Active. - IV albumin started 04/04/17 - Nutrition consult appreciated Hypothyroidism, present on admission. Controlled. - Continue home synthroid. Diabetes Type II, present on admission. Active. - Medium dose, nutritional and correctional insulin. - Holding home metformin. Acetaminophen for mild pain when necessary. Bowel regimen Senna and MiraLAX scheduled and PRN. Zofran when necessary for nausea and vomiting. SubQ heparin held for now. SCDs in place. High-risk medications: Pain Evaluation: Adequate Pain Control Resuscitation Status: DNR/DNI:Do Not Resuscitate/Intubate Attending Statement The patient was seen and examined together with Dr. Block on 04/06/2017 and I agree with the history, exam and plan as outlined in the note above. . Francisco Block DO Apr 06, 2017 06:29 Zackary rBaga MD Apr 06, 2017 17:09
[2017-04-06] MEDS: Lactulose 20 Gm/30 mL 30 mL Syrup PO SCH (14:56)
--- NOTE | 2017-04-06 15:46 | PCM.PNMED ---
Subjective Date of Service Apr 06, 2017 Subjective The patient denies fever or chills overnight. She denies pain as this time or worsening shortness of breath. She continues to have dry mouth. At the hospice meeting the patient consented and stated that she would like to go home. Hospice will reportedly be able to deliver home equipment on ThursdayApril 08, however they will not be able to open up home hospice care until April 09. Exam Vital Signs Vital Sign - Last Date Time Temp Pulse Resp B/P Pulse Ox O2 Delivery O2 Flow Rate FiO2 04/06/17 04:00 111 04/06/17 04:00 Supplement Oxygen 04/06/17 04:00 36.5 12 136/69 96 04/06/17 00:00 1.00 Intake and Output 04/05/17 04/05/17 04/06/17 Cumulative From/Thru 15:00 23:00 07:00 04/03/17 10:39 - 04/06/17 06:13 Intake Total 1714 ml 702 ml 8528 ml Output Total 625 ml 1050 ml 3475 ml Balance 1089 ml -348 ml 5053 ml Intake Oral 1400 ml 360 ml 2920 ml IV Total 314 ml 342 ml 5608 ml Output Urine Total 425 ml 650 ml 2875 ml Stool Total 200 ml 400 ml 600 ml # Voids 1 # Bowel Movements 2 2 Exam Gen.: Middle-aged obese female appearing chronically ill, in no acute distress Eyes: Pupils equal round reactive to light, extraocular motion intact, anicteric sclerae, noninjected conjunctiva HENT: Normocephalic atraumatic, moist mucous membranes without central cyanosis , oropharynx clear without cobblestoning mucosa Neck: Supple, trachea midline, no thyromegaly Cardiovascular: tachycardia, no murmurs rubs or gallops noted however difficult to auscultate given body habitus and ICU background sounds Lungs: decreased breath sounds in the left lower base with course sounds noted in the left lower posterior and axillary lung magaña, relatively clear to auscultation in all other magaña bilaterally without wheezing rhonchi Abdomen: Distended and tight, tympanic to percussion normoactive bowel sounds, nontender, unable to assess organomegaly due to body habitus Extremities: improved cyanosis and warmer but still cool lower extremities, difficult to palpate pulses at both radial and dorsalis pedis and posterior tibialis, moderate pitting edema noted in lower extremities bilaterally : Velazquez in place draining dark urine Skin: Warm and dry Neuro: Nonfocal cranial nerve exam, slurred speak described as baseline by family due to dry mouth, Able to move all extremities, continual eak lower extremities bilaterally in both hip flexion and knee flexion Psych: Normal mood and affect, alert and oriented 3 Lab and Diagnostics Result Diagram: 04/06/17 0151 04/06/17 0151 Microbiology Item Value Date Time MRSA (PCR) Received 04/03/17 1527 Nose Pending Urine Culture Received 04/03/17 1225 Urine,Random Pending Blood Culture Received 04/03/17 1155 Blood Aerobic Bottle Pending Blood Culture Received 04/03/17 1045 Blood Aerobic And Anaerobic Bottle Pending X-Rays, CTs and MRIs X-RAY CHEST ONE VIEW, PORTABLE IMPRESSION: 1. Small right-sided pleural effusion with associated atelectasis. 2. Probable enlargement of the heart with moderate vascular congestion. Please correlate clinically to exclude developing pulmonary edema. Dictated by: Won Thornton M.D. on 04/03/2017 at 10:50 US ABDOMEN, LIMITED IMPRESSION: Small amount of ascites present decreased from prior examination. Volume is not sufficient for safe paracentesis. Dictated by: Roland Gomez RR Interpreted: Chris Randall MD on 04/03/2017 at 12 :19 X-RAY KUB IMPRESSION: Study severely degraded secondary to portable technique and the patient's body habitus. Grossly there is no evidence of bowel obstruction. If there is persistent clinical concern for bowel obstruction recommend abdominal and pelvic CT with contrast. Dictated by: Chris Randall M.D. on 04/03/2017 at 16:04 CT ABDOMEN AND PELVIS WITHOUT CONTRAST ([id number]) IMPRESSION: 1. No definite evidence of bowel obstruction as clinically queried. There is incomplete inclusion of a few anterior bowel loops on the current study due to body habitus and patient positioning. 2. Moderate amount of ascites in the abdomen and pelvis, increased from the prior study. 3. Small to moderate right pleural effusion and trace left effusion with bibasilar compressive atelectasis and consolidation. 4. Heterogeneous appearance of the liver with ill-defined metastatic lesions appear similar to the prior study. Diffuse blastic metastatic disease redemonstrated throughout the visualized osseous structures. 5. Slightly increased pelvocaliectasis in the renal collection systems bilaterally. 6. Splenomegaly again noted. Dictated by: Mikael Cancino M.D. on 04/04/2017 at 22:26 Approved by: Mikael Cancino M.D. on 04/04/2017 at 22:36 Cardiac Echo Impressions Echocardiogram Report Interpretation Summary Left ventricular systolic function is normal with the ejection fraction grossly estimated to be 70-75%. There are no obvious focal wall motion abnormalities noted but poor endocardial definition reduces the sensitivity for the detection of such. The left ventricular cavity is small and wall thickness is mildly increased. Cannot assess for LVOT obstruction but there is no obvious anterior motion of the mitral valve leaflet. Diastolic function could not be accurately assessed due to unobtainable data. The right ventricle is not well visualized but grossly appears normal in size with probable normal systolic function. Pulmonary artery pressures cannot be estimated because of the lack of a measurable TR jet velocity. The atria are not well visualized. There is no obvious significant valvular heart disease but sensitivity is decreased because of limited images. There is no pericardial effusion. The patient was in sinus tachycardia with heart rates between 124-143 bpm during the exam. Reading Physician:04:52 PM Assessment & Plan The patient is a 42-year-old lady with a past medical history significant for metastatic triple negative breast cancer refractory to first and second line chemotherapy, diabetes type II, morbid obesity who presents to the [facility] emergency Department by EMS after worsening progressive weakness over the past week. # Triple negative metastatic breast cancer - Dr. Jay with oncology is patient's outpatient oncologist, Dr. Palacios is currently seeing the patient - Very poor prognosis, patient has been seen and will consent to Hospice with opening home appointment tentatively scheduled for April 09 - primary team and oncology to drive goals of care discussion until discharge # Acute kidney injury secondary to acute urinary retention - Patient had 2 L urine out with straight cath. - Creatinine 1.79 on admission, with baseline typically between 0.5 and 0.8, currently slightly worse at 1.9 likely secondary both hepatorenal syndrome from liver mets and to abdominal compartment syndrome with intra-abdominal pressures calculated at 22, recent US failed to reveal a pocket big enough to tap - Associated elevated uric acid at 14.4. - Likely secondary to urinary obstruction given 2 L urinary output after catheterization - Renal ultrasound completed and failed to reveal an underlying obstruction - Possibly secondary to urinary retention associated with tricyclic antidepressant - nephrology following and appreciate recs - minor oliguria on 04/04 corrected with albumin and lasix per nephrology recs # Acute Hyperkalemia - Potassium on admission 6.4, with repeat potassium to 6.5 prior to the below treatment plan - EKG showed low voltage, patient was given calcium gluconate for cardiac stabilization - Echo was negative for wall motion abnormalities pericardial effusions or tamponade. - improving down to 5.7 after insulin, albuterol and kayexelate therapy over the weekend - continue to monitor and stabilize with above medications prior to discharge Acute Hyponatremia secondary to SIADH - Sodium 118 on admission, corrected to 123 - Avoid rapid correction of >4-6 mEq/L in 6hours and >10 mEq/L per 24 hours - likely some component of SIADH with nephrology recommending fluid restriction Acute Lactic acidosis - Lactic acid on admission 5.1, down to 2.2 - Patient does not appear acutely infectious at this time - consider discontinuing cefepime as the patient has failed to demonstrate an underlying infection at this time Acute lower extremity weakness - Review of imaging studies fails to demonstrate a underlying tumor lesion causing nerve compression however given the patient's lower extremity weakness and possible neurogenic bladder the patient will be started on steroids per oncology recommendations - Dexamethasone 4 mg oral twice a day switched to prednisone 20mg daily per oncology recommendations for the mineralocorticoid benefit Acute hyperuricemia - Possibly secondary to tumor lysis syndrome - A discussion was held with Dr. Palacios who believes that this is possibly a rare but unlikely tumor lysis syndrome in a solid tumor secondary to diffuse extensive tumor burden outgrowing blood supply - Allopurinol 200 mg twice a day adjusted for renal clearance after discussion with pharmacology secondary to acute kidney injury - Continue to monitor Acute Leukocytosis, anemia and thrombocytopenia - White count on admission 25.9., platelets and RBC low - Patient's previous admissions with white count as high as 65.7. - From previous oncology prog notes: Differential for the patient's neutrophilia includes a leukemoid reaction from underlying infection, myelopthysis process from disease progression within the marrow, secondary myeloid neoplasia from previous chemotherapy exposure (MDS, Acute Leukemia), and finally demargination from prechemotherapy steroids. - The patient is not appearing acutely infectious at this time however given elevated pro calcitonin above 6 cefepime IV 2 g every 8 will be initiated to cover for possible gram-positive gram-negative and pseudomonas given his immunocompromised state - De-escalate antibiotics as soon as possible - monitor platelets and transfuse [place] [id number] - monitor RBC and transfuse with HB below 7 Acute elevation in liver enzymes - includes bilirubin, AST, ALT, alkaline phosphatase - Likely secondary to liver metastases however significant elevation noted recently, this could possibly be consistent with significant advancement of tumor burden resulting in the above-described tumor lysis - Patient denies abdominal complaints at this time including pain, nausea, vomiting - Low threshold for CT imaging however this patient is a poor surgical candidate at this time Protein malnutrition - nephrology recommends Albumin ever 12 hours for help with oncotic pressure and lasix binding Hypothyroidism - Dr. Palacios notes that the patient's TSH was significantly elevated when last checked - possibly a complication of the immunotherapy - levothyroxine 100 g daily Resuscitation Status: DNR/DNI:Do Not Resuscitate/Intubate Jacky Jacobs DO Apr 06, 2017 07:24
[2017-04-06] MEDS ORDERED: HYDROmorphone 0.5 mg/0.5 mL iSecure Syringe IVPUSH PRN (15:50)
--- NOTE | 2017-04-06 20:16 | CCS NOTE ---
[facility] [address] [address] MEDICAL ONCOLOGY OFFICE NOTE PATIENT: SUDHEER PEREZ : 1975 MR#: [id number] DATE: 04/03/2017 JOB ID: [id number] DATE: 04/06/2017 The patient's cousin is today at bedside. She is on 1-2 L of oxygen and appears today more confused and lethargic. She appears clearly less communicative and has problems finding the right words and is quite lethargic compared to yesterday. Her labs actually show some improvement with potassium down to 5.7, and sodium 120, creatinine stable around 1.9. Her blood pressure is stable as well. EXAMINATION: She is severely edematous and again is in a weak state, barely able to move her body. Requires full assistance. ASSESSMENT: A 42-year-old, unfortunate lady with refractory triple receptor negative, metastatic breast cancer with extensive tumor burden in the skeletal system. Today she appears clinically worse in regard to mentation and lethargy and weakness even though her lab results are slightly improved. 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 Patient is not able to undergo an MRI of the brain. I spoke with the patient's family member expressing my concern about her progress. She is DNR and DNI and medical care continues. Dr. Jay will be back on April 08, and communicate with the family regarding further management versus comfort measures.
[2017-04-07] MEDS: Insulin Human REGular 300 Unit/3 mL Inj SUBQ SCH ×3 (00:28→12:08)
[2017-04-07] MEDS: Cefepime Inj 2,000 MG in Dextrose 5% Minibag Plus 100 ML IV SCH ×2 (00:28→09:18)
[2017-04-07] MEDS: Furosemide 10 mg/mL 4 mL Inj IVPUSH SCH (03:13)
[2017-04-07] MEDS: Albumin 25% 25 GM in IV Premix 1 EACH IV SCH (03:13)
[2017-04-07 04:29] VITALS: BP 125/60; PULSE 107; RESP 11; O2SAT 95
[2017-04-07 04:41] LABS: Mean Corpuscular Hemoglobin 31.1 pg (27.0-35.0); Mean Corpuscular Volume 100.4 fL (81-100); Platelet Count 20 bil/L (150-400)
[2017-04-07 05:05] LABS: BASOPHILS % (AUTO) 0 % (0-3); EOSINOPHILS % (AUTO) 0 % (0-5); MONOCYTES % (AUTO) 2 % (4-12); NEUTROPHILS % (AUTO) 76 % (40-74)
--- NOTE | 2017-04-07 06:23 | NUR ---
critical labs/pain pt with critical platelets, paged and order to cross and match. sent. pt c/o pain with movement, declined turning but did let bed be on rotation, cleaned pt up this morning, pt cried out in pain with the movement and turning. pt resting at this time, pt very droswy all shift
[2017-04-07 09:12] VITALS: BP 125/60; PULSE 108; RESP 11; O2SAT 95
[2017-04-07] MEDS: Lactulose 20 Gm/30 mL 30 mL Syrup PO SCH (09:14)
[2017-04-07] MEDS: Tolterodine ER 2 mg ER24 Capsule PO SCH (09:14)
--- NOTE | 2017-04-07 09:40 | PCM.PNSURG ---
Subjective Date of Service: Apr 07, 2017 Date of Service: Apr 07, 2017 Visit Information: Reason for Visit Hyponatremia,Arf,Hyperkalemia,Breast Ca, constipation Date of Admission: Apr 03, 2017 at 13:12 Hospital Day # 5 Subjective: GASTROENTEROLOGY PROGRESS NOTE 42 yo with metastatic breast cancer with metastasis to bone has opioid induced constipation. This morning she is minimally verbal. She is able to move her head and has a few words to simple yes or no questions. She denies nausea, vomiting, and abdominal pain. She declines additional needs at this time. Her FMS output is about 50mL since yesterday. Postop General: No Complaints Gastrointestinal: No N/V Postop Activity: Other (bed bound currently) Objective Vital Sign- Last 8 Hours Date Time Temp Pulse Resp B/P Pulse Ox O2 Delivery O2 Flow Rate FiO2 04/07/17 04:29 37.2 107 11 125/60 95 Nasal Cannula 1.00 Intake and Output- Last 8 Hour 04/07/17 Cumulative From/Thru 07:00 04/03/17 10:39 - 04/07/17 06:22 Intake Total 550 ml 9924 ml Output Total 400 ml 4325 ml Balance 150 ml 5599 ml Intake Oral 240 ml 3780 ml IV Total 310 ml 6144 ml Output Urine Total 400 ml 3725 ml Stool Total 600 ml # Voids 1 # Bowel Movements 2 General: Mild Distress (Altered mental status) Neck: Supple Lungs: Clear to Auscultation Heart: No Murmurs/Rubs/Gallops, Other (tachycardic) Abdomen: Firm, Non-tender, Distended, Other (hypoactive bowel sounds.) Extremities: Warm Neuro: Other (speech decreased) Catheters: Urethral 2 Way Velazquez (and FMS in place) Result Diagram: 04/07/17 0430 04/07/17 0430 Diagnostics: PROCEDURE: CT ABDOMEN AND PELVIS WITHOUT CONTRAST IMPRESSION: 1. No definite evidence of bowel obstruction as clinically queried. There is incomplete inclusion of a few anterior bowel loops on the current study due to body habitus and patient positioning. 2. Moderate amount of ascites in the abdomen and pelvis, increased from the prior study. 3. Small to moderate right pleural effusion and trace left effusion with bibasilar compressive atelectasis and consolidation. 4. Heterogeneous appearance of the liver with ill-defined metastatic lesions appear similar to the prior study. Diffuse blastic metastatic disease redemonstrated throughout the visualized osseous structures. 5. Slightly increased pelvocaliectasis in the renal collection systems bilaterally. 6. Splenomegaly again noted. Dictated by: Mikael Cancino M.D. on 04/04/2017 at 22:26 Assessment & Plan Impression This is an unfortunate 42-year-old female with triple negative metastatic breast cancer, diabetes, and morbid obesity admitted to the hospital for progressive worsening weakness for the past one week. The patient also has had increased abdominal girth and change in bowel movements in which she has more constipation most likely opioid induced. During hospital stay, the patient has tried one dose of methylnaltrexone subcutaneous which caused her more pain and without any bowel movement. The patient has also been given senna and mineral oil enemas without any relief. Patient started GoLYTELY 4 L to be used to help patient have a bowel movement given the fact that the CT scan has no evidence of obstruction. She has had very little additional output since yesterday. Abdomen is slightly more firm than on examination yesterday. In terms of maintenance, patient is on lactulose. I would recommend the patient should be on a good a bowel regimen and consider Amitiza given the fact that this FDA approved for opioid induced constipation 8 mcg by mouth twice a day. Patient has rapidly declined over the last 2 days. There will be a family meeting today to discuss comfort care and transition to hospice. Problems: Plan 1. Agree with lactulose, bowel regimen will be important for patient. Additionally this may help with her altered mental status. 2. Consider Amitiza 8 mcg by mouth twice a day for opioid induced constipation. 3. Agree with comfort care should that be what the family decides for patient. 4. Will continue to follow. Pain Management: per hospitalist team Resuscitation Status: DNR/DNI:Do Not Resuscitate/Intubate copies to: Juno Alcaraz MD, Erika R DO Apr 07, 2017 08:42
[2017-04-07] MEDS: 0.9% Sodium Chloride 250 ML IV SCH (10:20)
--- NOTE | 2017-04-07 10:32 | NUR ---
spiritual care: staff/routine brief bedside greeting with pt, pt offered one word responses with effort to speak.
[2017-04-07 10:52] VITALS: PULSE 109
[2017-04-07 12:19] VITALS: BP 136/71; PULSE 112; RESP 10; O2SAT 97
[2017-04-07] MEDS ORDERED: Glycopyrrolate 0.2 MG/ML 1mL Inj IVPUSH PRN (12:45)
[2017-04-07] MEDS ORDERED: Ondansetron 2 mg/mL 2 mL Inj IVPUSH PRN (12:45)
[2017-04-07] MEDS ORDERED: Artificial Tears 15 mL Ophthalmic Solution AFFECT_EYE PRN (12:45)
[2017-04-07] MEDS ORDERED: Atropine 1% 5 mL Ophthalmic Solution PO PRN (12:45)
[2017-04-07] MEDS ORDERED: Haloperidol 5 mg/mL Inj IVPUSH PRN (12:45)
[2017-04-07] MEDS: Dexamethasone 4 mg/mL Inj IVPUSH SCH (13:34)
--- NOTE | 2017-04-07 14:07 | PCM.PNNEPH ---
Subjective Date of Service Apr 07, 2017 Subjective Decreased LOC. Followed simple commands. Feeling weak. Exam Vital Signs Vital Sign - Last Date Time Temp Pulse Resp B/P Pulse Ox O2 Delivery O2 Flow Rate FiO2 04/07/17 12:19 36.8 112 10 136/71 97 Nasal Cannula 1.00 Intake and Output 04/06/17 04/06/17 04/07/17 Cumulative From/Thru 15:00 23:00 07:00 04/03/17 10:39 - 04/07/17 06:22 Intake Total 846 ml 550 ml 9924 ml Output Total 450 ml 400 ml 4325 ml Balance 396 ml 150 ml 5599 ml Intake Oral 620 ml 240 ml 3780 ml IV Total 226 ml 310 ml 6144 ml Output Urine Total 450 ml 400 ml 3725 ml Stool Total 600 ml # Voids 1 # Bowel Movements 0 2 Exam General appearance: weak, drowsy, follow simple commands. HEENT: Mild pallor. No jaundice. No JVD. Atraumatic. Moist mucous membranes. Heart: Tachycardic. Normal S1, S2. No murmurs, rubs, or gallops. Lungs: Decreased breath sounds at bases. No wheezing. No rhonchi. Abdomen: Soft. Moderate distention. Nontender. Decreased bowel sounds. Obese. Rectal tube in place. Extremities: 2+ edema on the lower extremity. No rash, no cyanosis. No clubbing of fingers. Lab and Diagnostics Result Diagram: 04/07/17 0430 04/07/17 0430 Microbiology Item Value Date Time MRSA (PCR) Received 04/03/17 1527 Nose Pending Urine Culture Received 04/03/17 1225 Urine,Random Pending Blood Culture Received 04/03/17 1155 Blood Aerobic Bottle Pending Blood Culture Received 04/03/17 1045 Blood Aerobic And Anaerobic Bottle Pending X-Rays, CTs and MRIs X-RAY CHEST ONE VIEW, PORTABLE IMPRESSION: 1. Small right-sided pleural effusion with associated atelectasis. 2. Probable enlargement of the heart with moderate vascular congestion. Please correlate clinically to exclude developing pulmonary edema. Dictated by: Won Thornton M.D. on 04/03/2017 at 10:50 US ABDOMEN, LIMITED IMPRESSION: Small amount of ascites present decreased from prior examination. Volume is not sufficient for safe paracentesis. Dictated by: Roland Gomez RRA Interpreted: Chris Randall MD on 04/03/2017 at 12 :19 X-RAY KUB IMPRESSION: Study severely degraded secondary to portable technique and the patient's body habitus. Grossly there is no evidence of bowel obstruction. If there is persistent clinical concern for bowel obstruction recommend abdominal and pelvic CT with contrast. Dictated by: Chris Randall M.D. on 04/03/2017 at 16:04 CT ABDOMEN AND PELVIS WITHOUT CONTRAST ([id number]) IMPRESSION: 1. No definite evidence of bowel obstruction as clinically queried. There is incomplete inclusion of a few anterior bowel loops on the current study due to body habitus and patient positioning. 2. Moderate amount of ascites in the abdomen and pelvis, increased from the prior study. 3. Small to moderate right pleural effusion and trace left effusion with bibasilar compressive atelectasis and consolidation. 4. Heterogeneous appearance of the liver with ill-defined metastatic lesions appear similar to the prior study. Diffuse blastic metastatic disease redemonstrated throughout the visualized osseous structures. 5. Slightly increased pelvocaliectasis in the renal collection systems bilaterally. 6. Splenomegaly again noted. Dictated by: Mikael Cancino M.D. on 04/04/2017 at 22:26 Approved by: Mikael Cancino M.D. on 04/04/2017 at 22:36 Cardiac Echo Impressions Echocardiogram Report Interpretation Summary Left ventricular systolic function is normal with the ejection fraction grossly estimated to be 70-75%. There are no obvious focal wall motion abnormalities noted but poor endocardial definition reduces the sensitivity for the detection of such. The left ventricular cavity is small and wall thickness is mildly increased. Cannot assess for LVOT obstruction but there is no obvious anterior motion of the mitral valve leaflet. Diastolic function could not be accurately assessed due to unobtainable data. The right ventricle is not well visualized but grossly appears normal in size with probable normal systolic function. Pulmonary artery pressures cannot be estimated because of the lack of a measurable TR jet velocity. The atria are not well visualized. There is no obvious significant valvular heart disease but sensitivity is decreased because of limited images. There is no pericardial effusion. The patient was in sinus tachycardia with heart rates between 124-143 bpm during the exam. Reading Physician:04:52 PM Plan Impression 1. Hyponatremia. normal osm. ? pseudohyponatremia, unclear etiology. 2. High osmolal gap likely due to lactic acidosis. 3. High anion gap met acidosis due to lactic acidosis. 4. Persistent hyperkalemia in the setting of chronic constipation. improving after administration of Golytely. 5. GUS, low urine Na, low effective circulating volume, increased total body water. - DDx: HRS, increased intraabd pressure. 6. Abnormal liver function and ascites. 7. Metastatic breast cancer. 8. Elevation of uric acid, potential tumor lysis syndrome. Yet, patient has normal phosphorus. 9. Chronic hypocalcemia. h/o zometra administration. PTH/vitD pending. 10. Chronic leukocytosis. 11. Poor prognosis. Plan: IV lasix and IV alb q 12hr. Continue fluid restriction. Monitor bladder pressure. 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 Continue only supportive Rx for now. Fatou Hoover MD Apr 07, 2017 14:07
[2017-04-07] MEDS: Morphine 100 mg/100 mL NS 100 MG in IV Premix 1 EACH IV SCH (14:13)
--- NOTE | 2017-04-07 17:04 | NUR ---
Comfort Care The pt was moved to comfort care today. Currently on a morphine gtt at 2mg/hour with good effects. Family is following closely and requests to be notified of any changes. The pt is unable to communicate besides "yes" and "no" responses at this time.
--- NOTE | 2017-04-07 17:15 | PCM.PNMED ---
Subjective Date of Service Apr 07, 2017 Subjective Overnight Events: Patient with hgb of 7.6. Type and cross ordered. Patient is awake in bed but answers "yes" to every question. She appears to be resting comfortably on oxygen. Reports feeling tired this morning. With family in the room we discussed transition of care to comfort care. Exam Vital Signs Vital Sign - Last Date Time Temp Pulse Resp B/P Pulse Ox O2 Delivery O2 Flow Rate FiO2 04/07/17 04:29 37.2 107 11 125/60 95 Nasal Cannula 1.00 Intake and Output 04/06/17 04/06/17 04/07/17 Cumulative From/Thru 15:00 23:00 07:00 04/03/17 10:39 - 04/07/17 06:22 Intake Total 846 ml 550 ml 9924 ml Output Total 450 ml 400 ml 4325 ml Balance 396 ml 150 ml 5599 ml Intake Oral 620 ml 240 ml 3780 ml IV Total 226 ml 310 ml 6144 ml Output Urine Total 450 ml 400 ml 3725 ml Stool Total 600 ml # Voids 1 # Bowel Movements 0 2 Exam Gen.: Middle-aged obese female in no acute distress, with mentation somewhat declined from 04/04/17, but unable to fully assess as patient also awaken from sleep. Eyes: Pupils equal round reactive to light, extraocular motion intact, anicteric sclerae, noninjected conjunctiva HENT: Normocephalic atraumatic, moist mucous membranes Neck: Supple, trachea midline, no thyromegaly Cardiovascular: regular rate and rhythm, no murmurs rubs or gallops Lungs: anterior lung magaña clear to auscultation, unable to auscultate posterior lung magaña due to patient positioning. Abdomen: severely Distended, tympanic to percussion, hypoactive bowel sounds, nontender, unable to assess organomegaly due to body habitus Extremities: Cyanosis of bilateral toes, cold lower extremities, difficult to palpate pulses at both radial and dorsalis pedis and posterior tibialis, mild pitting edema noted in lower extremities bilaterally : Velazquez in place draining dark urine Skin: Warm and dry Neuro: Nonfocal cranial nerve exam, Able to move all extremities, Weak lower extremities bilaterally in both hip flexion and knee flexion Psych: Normal mood and affect, alert and oriented 3 IVs and Medications Medications Reviewed: Medications were reviewed in detail Lab and Diagnostics Laboratory Tests 72 Hours Test 04/04/17 08:25 04/04/17 10:20 04/04/17 13:00 04/04/17 16:49 Lactic Acid Level 4.5mmol/L (0.4-2.0) Sodium Level 117mEq/L (134-144) 118mEq/L (134-144) 118mEq/L (134-144) Potassium Level 6.2mEq/L (3.5-5.2) 6.1mEq/L (3.5-5.2) 6.1mEq/L (3.5-5.2) Chloride Level 82mEq/L (97-108) 83mEq/L (97-108) 83mEq/L (97-108) Carbon Dioxide Level 19mmol/L (18-29) 20mmol/L (18-29) 19mmol/L (18-29) Blood Urea Nitrogen 40mg/dL (6-24) 40mg/dL (6-24) 41mg/dL (6-24) Creatinine 1.89mg/dL (0.57-1.00) 1.91mg/dL (0.57-1.00) 1.98mg/dL (0.57-1.00) Estimat Glomerular Filtration Rate 41mL/min (>59) 41mL/min (>59) 39mL/min (>59) Glucose Level 190mg/dL (60-99) 193mg/dL (60-99) 229mg/dL (60-99) Osmolality 282 (275-300) Calcium Level 6.6mg/dL (8.5-10.1) 7.0mg/dL (8.5-10.1) 7.0mg/dL (8.5-10.1) Ionized Calcium (Calculated) 2.91mg/dL (3.5-5.2) Total Protein 6.8g/dL (6.4-8.4) Calcium (Send out) 6.9mg/dL (8.7-10.2) Parathyroid Hormone Interpretation Comment (.) Total Intact Parathyroid Hormone 416pg/mL (15-65) Test 04/04/17 21:08 04/05/17 01:00 04/05/17 05:12 04/05/17 08:56 Sodium Level 120mEq/L (134-144) 120mEq/L (134-144) 120mEq/L (134-144) 118mEq/L (134-144) Potassium Level 6.2mEq/L (3.5-5.2) 6.2mEq/L (3.5-5.2) 6.6mEq/L (3.5-5.2) 6.4mEq/L (3.5-5.2) Chloride Level 85mEq/L (97-108) 84mEq/L (97-108) 86mEq/L (97-108) 84mEq/L (97-108) Carbon Dioxide Level 18mmol/L (18-29) 20mmol/L (18-29) 21mmol/L (18-29) 19mmol/L (18-29) Blood Urea Nitrogen 40mg/dL (6-24) 44mg/dL (6-24) 44mg/dL (6-24) 45mg/dL (6- 24) Creatinine 1.98mg/dL (0.57-1.00) 2.03mg/dL (0.57-1.00) 1.85mg/dL (0.57-1.00) 1.90mg/dL (0.57-1.00) Estimat Glomerular Filtration Rate 39mL/min (>59) 38mL/min (>59) 42mL/min (>59) 41mL/min (>59) Glucose Level 209mg/dL (60-99) 198mg/dL (60-99) 210mg/dL (60-99) 228mg/dL (60-99) Calcium Level 7.1mg/dL (8.5-10.1) 7.2mg/dL (8.5-10.1) 7.4mg/dL (8.5-10.1) 7.5mg/dL (8.5-10.1) White Blood Count 15.1th/mm3 (3.8-10.1) Red Blood Count 2.59mil/mm3 (3.90-5.20) Hemoglobin 8.1g/dL (12.0-15.6) Hematocrit 25.7% (35.0-46.0) Mean Corpuscular Volume 99.2fL (81-100) Mean Corpuscular Hemoglobin 31.3pg (27.0-35.0) Mean Corpuscular Hemoglobin Concent 31.5% (32.0-37.0) Red Cell Distribution Width 21.7% (12.3-15.4) Platelet Count 26bil/L (150-400) Total Bilirubin 1.1mg/dL (0.0-1.2) Direct Bilirubin 0.5mg/dL (0.0-0.3) Aspartate Amino Transf (AST/SGOT) 120U/L (0-50) Alanine Aminotransferase (ALT/SGPT) 37U/L (0-32) Alkaline Phosphatase 338U/L (25-150) Total Protein 7.4g/dL (6.4-8.4) Albumin 2.7g/dL (3.4-5.0) Hemoglobin A1c 5.1% (4.8-5.6) Test 04/05/17 09:45 04/05/17 13:20 04/05/17 14:23 04/05/17 17:50 Osmolality 282 (275-300) Ketones Negative (Negative) Lactic Acid Level 3.5mmol/L (0.4-2.0) Uric Acid 13.3mg/dL (2.6-7.2) Triglycerides Level 242mg/dL (0-149) Cholesterol Level 103mg/dL (100-199) LDL Cholesterol, Calculated 45.600mg/dL (0-99) VLDL Cholesterol 48.400mg/dL HDL Cholesterol 9mg/dL (>39) Cholesterol/HDL Ratio 11.44 (0.0-4.4) Alcohols < 10mg/dL (0-10) Sodium Level 121mEq/L (134-144) Potassium Level 5.8mEq/L (3.5-5.2) Chloride Level 85mEq/L (97-108) Carbon Dioxide Level 20mmol/L (18-29) Blood Urea Nitrogen 47mg/dL (6-24) Creatinine 1.80mg/dL (0.57-1.00) Estimat Glomerular Filtration Rate 44mL/min (>59) Glucose Level 189mg/dL (60-99) Calcium Level 7.6mg/dL (8.5-10.1) Test 04/06/17 01:51 04/06/17 08:23 04/06/17 11:20 04/07/17 04:30 White Blood Count 16.1th/mm3 (3.8-10.1) 15.0th/mm3 (3.8-10.1) Red Blood Count 2.65mil/mm3 (3.90-5.20) 2.44mil/mm3 (3.90-5.20) Hemoglobin 8.2g/dL (12.0-15.6) 7.6g/dL (12.0-15.6) Hematocrit 26.7% (35.0-46.0) 24.5% (35.0-46.0) Mean Corpuscular Volume 100.8fL (81-100) 100.4fL (81-100) Mean Corpuscular Hemoglobin 30.9pg (27.0-35.0) 31.1pg (27.0-35.0) Mean Corpuscular Hemoglobin Concent 30.7% (32.0-37.0) 31.0% (32.0-37.0) Red Cell Distribution Width 21.5% (12.3-15.4) 21.1% (12.3-15.4) Platelet Count 27bil/L (150-400) 20bil/L (150-400) Neutrophils (%) (Auto) 75% (40-74) 76% (40-74) Lymphocytes (%) (Auto) 2% (14-46) 4% (14-46) Monocytes (%) (Auto) 6% (4-12) 2% (4-12) Eosinophils (%) (Auto) 0% (0-5) 0% (0-5) Basophils (%) (Auto) 0% (0-3) 0% (0-3) Band Neutrophils % 11% (1-5) 14% (1-5) Metamyelocytes % 5% (0-0) 4% (0-0) Myelocytes % 1% (0-0) Hematology Comments Sodium Level 123mEq/L (134-144) 123mEq/L (134-144) Potassium Level 5.7mEq/L (3.5-5.2) 5.7mEq/L (3.5-5.2) Chloride Level 84mEq/L (97-108) 87mEq/L (97-108) Carbon Dioxide Level 21mmol/L (18-29) 21mmol/L (18-29) Blood Urea Nitrogen 49mg/dL (6-24) 55mg/dL (6-24) Creatinine 1.90mg/dL (0.57-1.00) 1.80mg/dL (0.57-1.00) Estimat Glomerular Filtration Rate 41mL/min (>59) 44mL/min (>59) Glucose Level 202mg/dL (60-99) 230mg/dL (60-99) Osmolality 288 (275-300) Lactic Acid Level 2.2mmol/L (0.4-2.0) Calcium Level 7.4mg/dL (8.5-10.1) 8.1mg/dL (8.5-10.1) Total Bilirubin 1.3mg/dL (0.0-1.2) 1.5mg/dL (0.0-1.2) Aspartate Amino Transf (AST/SGOT) 116U/L (0-50) 94U/L (0-50) Alanine Aminotransferase (ALT/SGPT) 40U/L (0-32) 32U/L (0-32) Alkaline Phosphatase 396U/L (25-150) 381U/L (25-150) Total Protein 7.0g/dL (6.4-8.4) 6.9g/dL (6.4-8.4) Albumin 2.8g/dL (3.4-5.0) 3.3g/dL (3.4-5.0) Ammonia 77ug/dL (18-53) Nucleated Red Blood Cells 1/100 WBC (0-24) Result Diagram: 04/07/17 0430 04/07/17 0430 Microbiology Item Value Date Time MRSA (PCR) Received 04/03/17 1527 Nose Pending Urine Culture Received 04/03/17 1225 Urine,Random Pending Blood Culture Received 04/03/17 1155 Blood Aerobic Bottle Pending Blood Culture Received 04/03/17 1045 Blood Aerobic And Anaerobic Bottle Pending X-Rays, CTs and MRIs X-RAY CHEST ONE VIEW, PORTABLE IMPRESSION: 1. Small right-sided pleural effusion with associated atelectasis. 2. Probable enlargement of the heart with moderate vascular congestion. Please correlate clinically to exclude developing pulmonary edema. Dictated by: Won Thornton M.D. on 04/03/2017 at 10:50 US ABDOMEN, LIMITED IMPRESSION: Small amount of ascites present decreased from prior examination. Volume is not sufficient for safe paracentesis. Dictated by: Roland Gomez RRA Interpreted: Chris Randall MD on 04/03/2017 at 12 :19 X-RAY KUB IMPRESSION: Study severely degraded secondary to portable technique and the patient's body habitus. Grossly there is no evidence of bowel obstruction. If there is persistent clinical concern for bowel obstruction recommend abdominal and pelvic CT with contrast. Dictated by: Chris Randall M.D. on 04/03/2017 at 16:04 CT ABDOMEN AND PELVIS WITHOUT CONTRAST ([id number]) IMPRESSION: 1. No definite evidence of bowel obstruction as clinically queried. There is incomplete inclusion of a few anterior bowel loops on the current study due to body habitus and patient positioning. 2. Moderate amount of ascites in the abdomen and pelvis, increased from the prior study. 3. Small to moderate right pleural effusion and trace left effusion with bibasilar compressive atelectasis and consolidation. 4. Heterogeneous appearance of the liver with ill-defined metastatic lesions appear similar to the prior study. Diffuse blastic metastatic disease redemonstrated throughout the visualized osseous structures. 5. Slightly increased pelvocaliectasis in the renal collection systems bilaterally. 6. Splenomegaly again noted. Dictated by: Mikael Cancino M.D. on 04/04/2017 at 22:26 Approved by: Mikael Cancino M.D. on 04/04/2017 at 22:36 Cardiac Echo Impressions Echocardiogram Report Interpretation Summary Left ventricular systolic function is normal with the ejection fraction grossly estimated to be 70-75%. There are no obvious focal wall motion abnormalities noted but poor endocardial definition reduces the sensitivity for the detection of such. The left ventricular cavity is small and wall thickness is mildly increased. Cannot assess for LVOT obstruction but there is no obvious anterior motion of the mitral valve leaflet. Diastolic function could not be accurately assessed due to unobtainable data. The right ventricle is not well visualized but grossly appears normal in size with probable normal systolic function. Pulmonary artery pressures cannot be estimated because of the lack of a measurable TR jet velocity. The atria are not well visualized. There is no obvious significant valvular heart disease but sensitivity is decreased because of limited images. There is no pericardial effusion. The patient was in sinus tachycardia with heart rates between 124-143 bpm during the exam. Reading Physician:04:52 PM Assessment & Plan The patient is a 42-year-old lady with a past medical history significant for metastatic triple negative breast cancer refractory to first and second line chemotherapy, diabetes type II, morbid obesity who presents to the [facility] emergency Department by EMS after worsening progressive weakness over the past week. Patient has been transitioned to comfort measures only. Comfort measures - - IV Morphine for pain and air hunger. - IV Ativan for anxiety and air hunger. - Haldol PRN for agitation. Triple negative metastatic breast cancer - Dr. Jay with oncology is patient's outpatient oncologist. - Very poor prognosis, patient has been seen and will consent to Hospice with opening home appointment tentatively scheduled for April 09 - Patient has been transitioned to comfort measures only. Acute kidney injury secondary to acute urinary retention - Creatinine 1.79 on admission, with baseline typically between 0.5 and 0.8, currently slightly worse at 1.9 likely secondary both hepatorenal syndrome from liver mets and to abdominal compartment syndrome with intra-abdominal pressures calculated at 22, recent US failed to reveal a pocket big enough to tap - Associated elevated uric acid at 14.4. - Patient has been transitioned to comfort measures only. Acute Hyperkalemia - Potassium on admission 6.4, with repeat potassium to 6.5 prior to the below treatment plan - EKG showed low voltage, patient was given calcium gluconate for cardiac stabilization - Patient has been transitioned to comfort measures only. 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 Acute Lactic acidosis - Lactic acid on admission 5.1, down to 2.2 - Patient has been transitioned to comfort measures only. Acute lower extremity weakness - Review of imaging studies fails to demonstrate a underlying tumor lesion causing nerve compression however given the patient's lower extremity weakness and possible neurogenic bladder the patient will be started on steroids per oncology recommendations - Patient has been transitioned to comfort measures only. Acute hyperuricemia - Possibly secondary to tumor lysis syndrome - A discussion was held with Dr. Palacios who believes that this is possibly a rare but unlikely tumor lysis syndrome in a solid tumor secondary to diffuse extensive tumor burden outgrowing blood supply Acute Leukocytosis, anemia and thrombocytopenia - From previous oncology prog notes: Differential for the patient's neutrophilia includes a leukemoid reaction from underlying infection, myelopthysis process from disease progression within the marrow, secondary myeloid neoplasia from previous chemotherapy exposure (MDS, Acute Leukemia), and finally demargination from prechemotherapy steroids. - The patient is not appearing acutely infectious at this time however given elevated pro calcitonin above 6 cefepime IV 2 g every 8 will be initiated to cover for possible gram-positive gram-negative and pseudomonas given his immunocompromised state Acute elevation in liver enzymes - Likely secondary to liver metastases however significant elevation noted recently, this could possibly be consistent with significant advancement of tumor burden resulting in the above-described tumor lysis Protein malnutrition - nephrology recommends Albumin ever 12 hours for help with oncotic pressure and lasix binding Hypothyroidism - Dr. Palacios notes that the patient's TSH was significantly elevated when last checked - Patient has been transitioned to comfort measures only. Acetaminophen for mild pain when necessary. Bowel regimen Senna and MiraLAX scheduled and PRN. Zofran when necessary for nausea and vomiting. SubQ heparin held for now. SCDs in place. High-risk medications: IV Morphine Disposition: Likely here for > 2 midnights. Dependent upon comfort measures. Will be discharged to home with hospice when ready. Pain Evaluation: Adequate Pain Control Resuscitation Status: DNR/DNI:Do Not Resuscitate/Intubate Attending Statement The patient was seen and examined together with Dr. Kumar on 04/07/2017 and I agree with the history, exam and plan as outlined in the note above. . Francisco Block DO Apr 07, 2017 06:42 RANULFO KUMAR DO Apr 07, 2017 17:13 Zackary Braga MD Apr 07, 2017 19:55
[2017-04-07] MEDS ORDERED: Lactulose 20 Gm/30 mL 30 mL Syrup PO SCH (20:30)
[2017-04-08] MEDS ORDERED: Furosemide 10 mg/mL 4 mL Inj IVPUSH SCH (02:30)
--- NOTE | 2017-04-08 05:07 | NUR ---
comfort care pt on comfort care, morphine gtt running at 4mg/hr, RR 6-10, 1L SpO2 low 90s, pt unable to communicate at times able to shake her head yes or no other times pt gazes off, gave IV ativan x1, HR has increased to 130s but pt appears comfortable. evaluating every hour will cont comfort care
[2017-04-08] MEDS: 0.9% Sodium Chloride 250 ML IV SCH (06:18)
[2017-04-08] MEDS: Dexamethasone 4 mg/mL Inj IVPUSH SCH (07:55)
--- NOTE | 2017-04-08 08:47 | PCM.PNSURG ---
Subjective Date of Service: Apr 08, 2017 Date of Service: Apr 08, 2017 Visit Information: Subjective: pt sleeping. abdomen distended Postop General: No Complaints Objective Intake and Output- Last 8 Hour 04/08/17 Cumulative From/Thru 07:00 04/03/17 10:39 - 04/08/17 06:18 Intake Total 243 ml 08769 ml Output Total 200 ml 4975 ml Balance 43 ml 5842 ml Intake Oral 4430 ml IV Total 243 ml 6387 ml Output Urine Total 200 ml 4325 ml Stool Total 650 ml # Voids 1 # Bowel Movements 2 General: No Acute Distress Neck: Supple Lungs: Clear to Auscultation Heart: Exam Unremarkable Abdomen: Benign, Firm, Distended Extremities: Distal Pulses Palpable Result Diagram: 04/07/1742904/07/17429 Assessment & Plan Impression This is an unfortunate 42-year-old female with triple negative metastatic breast cancer, diabetes, and morbid obesity admitted to the hospital for progressive worsening weakness for the past one week. The patient also has had increased abdominal girth and change in bowel movements in which she has more constipation most likely opioid induced. During hospital stay, the patient has tried one dose of methylnaltrexone subcutaneous which caused her more pain and without any bowel movement. The patient has also been given senna and mineral oil enemas without any relief. Patient started GoLYTELY 4 L to be used to help patient have a bowel movement given the fact that the CT scan has no evidence of obstruction. She has had very little additional output since yesterday. Abdomen firm and distended. I would recommend the patient should be on a good a bowel regimen and consider Amitiza given the fact that this FDA approved for opioid induced constipation 8 mcg by mouth twice a day if pt can tolerate PO. There was a family meeting 04/07 to discuss comfort care and transition to hospice. Plan 1. lactulose and consider Amitiza 8 mcg by mouth twice a day for opioid induced constipation if pt can tolerate PO 2. Agree with comfort care/ hospice. Prognosis poor. Will continue to follow. Problems: Resuscitation Status: DNR/DNI:Do Not Resuscitate/Intubate Juno Alcaraz MD Apr 08, 2017 08:47
--- NOTE | 2017-04-08 11:14 | NUR ---
Palliative care note D/A: Palliative care referral received today from Dr. Braga. Referral is for assistance with pt who has been made comfort care and will needs assistance with pain and symptom management. Pt is a 42 year old woman who was recently admitted with a decline in functional status, known metastatic breast cancer. Family and pt recently made decision to move towards comfort care, medical team feels that pt may in the hospital. It is thought that pt/family may have already had hospice info visit from [facility]. Pt is noted to live with family, various notes indicate either with her sister Taylor Garcia ) or dtr Delicia Jun .) P: Palliative care to follow. Kaila STACY CCM Addendum: 04/08/17 at 1213 by KAMILA FONG SS PC note amendment Dr. Dutta has kindly written order for PC consult. Kaila STACY [facility]
--- NOTE | 2017-04-08 11:33 | PCM.CONPAL ---
Date of Service Apr 08, 2017 Date of Hospital Admission: Apr 03, 2017 at 13:12 Date of Palliative Consult: Apr 08, 2017 Requesting Provider: John Maciel DO Reason Palliative Care Consult: Other (comfort care) Hospital Unit @time of consult: Progressive Care Palliative Care Recommendation Unfortunate 42-year-old female with widely metastatic breast cancer, admitted with progressive weakness and multiple metabolic/electrolyte abnormalities as well as acute renal failure. Further clinical deterioration and transition to comfort/end-of-life care over the last 24 hours. Summary of palliative recommendations: -Symptom management (Pain/other)- end-of-life care orders initiated with morphine/lorazepam/other medications as needed for comfort. -DPOA/Advanced Directives/POLST- DO NOT RESUSCITATE/DO NOT INTUBATE/comfort care -Family/emotional support- palliative will continue to follow and provide support as needed. Patient's family understands that she will likely pass away here in the hospital within the next 24 hours. Additional Medical Diagnoses with primary management by Hospitalist team include : # Triple negative metastatic breast cancer # Acute kidney injury secondary to acute urinary retention # Acute Hyperkalemia Acute Hyponatremia secondary to SIADH Acute Lactic acidosis Acute lower extremity weakness Acute hyperuricemia Acute Leukocytosis, anemia and thrombocytopenia Acute elevation in liver enzymes Protein malnutrition Hypothyroidism Problems: Resuscitation Status Resuscitation Status: DNR/DNI:Do Not Resuscitate/Intubate POLST Updates/Changes Previous POLST?: No . Advanced Care Planning Address: Comfort care Pain: None Pt History History of Present Illness Per admission H&P: 42-year-old lady with a past medical history significant for metastatic triple negative breast cancer, diabetes type II, morbid obesity who presents to the [facility] emergency Department by EMS after worsening progressive weakness over the past week. She reports slowly progressive increase in abdominal girth with associated shortness of breath and abdominal swelling/pressure. She also reports a slowly progressive decrease in ability to urinate and of note she was placed on spironolactone and Lasix as of last week that initially was helpful but as of 23 days ago were ineffective largely. She reports mild constipation for which she drank a lot of prune juice and had 1 episode of loose stools, yesterday. She denies headache, syncope, chest pain, cough, vomiting, fever, chills, abdominal pain with palpation. She reports mild nausea, excessive thirst, positional abdominal pain, decreased urination and constipation with one episode of diarrhea. Patient finished first-line carboplatin/gemcitabine and subsequently a second line docetaxel/Xeloda, and is now on Pembrolizumab (PD-L1) immunotherapy. Metastatic triple negative breast cancer relatively refractory to chemotherapy, her tumor is low expressor of PD L1 with 1-5% expression by immunochemistry. 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 She had previously been on Zometa infusions but was stopped at her most recent oncology clinic visit due to low calcium of 7.6 with a plan to restart in April 08. She is advised to continue calcium plus vitamin D. In the emergency department patient's vitals are as follows; Temperature 37.1 C, pulse 123, respiratory rate 22, blood pressure 91/59, pulse ox 94% on room air. Initial labs white count 29.0, 68% neutrophils, 8% lymphocytes, hemoglobin 10.2 , sodium 118, potassium 6.4, chloride 85, B UN 35, creatinine 1.83, lactic acid 5.1, uric acid 14.4, calcium 7.5, elevated AST and ALTs at 138/41, alkaline phosphatase 392, lactate dehydrogenase 895, albumin 1.9. Urine culture and blood culture 2 pending MRSA swab pending, UA negative. Abdominal ultrasound performed the emergency department that showed very little fluid and not safely removed by paracentesis. Chest x-ray read as possible pulmonary congestion and pulmonary edema. The patient had a Velazquez placed with 2 L urine output. In the emergency department nephrology was consult and. In the emergency department the patient received 2 L of NS, Since admission, has struggled with multiple metabolic/electrolyte abnormalities , renal failure, pancytopenia and acute transaminitis. Clinical status deteriorated further over the last several days, and consistent with multiple discussions between patient, her family members and medical care team decision was made to transition to comfort care. Level of consciousness has continued to decline though she remains comfortable appearing. Palliative medicine was consulted to assist with family support and end-of-life care. Prior to visiting, I reviewed her updated records in the EMR in detail as far back as her initial oncology consultation. Spoke with her medical team members on morning rounds as well as with her bedside nurse. Return later to speak with family members at bedside including her daughter and niece. Past Medical History Significant PMH Noted: Breast cancer, with history per oncology: She was initially diagnosed with breast cancer in June 2015 with an aggressively growing right axillary adenopathy and had preoperative chemotherapy with dose dense AC followed by 12 weekly doses of Taxol, then surgery in December 2015. At that time, still residual extensive metastatic bo disease in the right axilla suggesting that her disease was fairly chemotherapy refractory. She received adjuvant radiation and shortly thereafter presented in July 2016 with diffuse metastatic disease involving the skeletal system and adenopathy in the mediastinum and abdomen. She has been treated with two separate lines of chemotherapy in the recurrent metastatic setting, initially with carboplatin and gemcitabine, with further worsening of severe cytopenias likely due to bone marrow metastases, and therefore, since that regimen was particularly myelosuppressive, it was switched to Xeloda combined with Taxotere of which she received an additional four cycles. The most recent imaging of March 09, 2017, showed disease progression with new hepatic metastases, presence of ascites. She was not able to lay flat on her back enough to do the bone scan that had to be canceled. The most recent bone scan that she was able to complete was from December 15, 2016, showing diffuse metastatic disease involving all long bones as well as central skeletal structures including the hips and cervical through lumbar spine. On March 25, she was empirically started on immunotherapy with pembrolizumab which is an anti- PD1 antibody at 200 mg IV. Her tumor was tested for PD-L1 expression and was rather low and this was used as a last resort. Bladder infection Prolapsed uterus Chronic tachycardia T2DM Hyperthyroidism Morbid obesity PAST SURGICAL HISTORY: 1. Left benign lumpectomy in 1992. 2. Cholecystectomy. 3. Excision of infected ovarian cyst in 2007. 4. Surgery on the left leg and ankle for a fracture and dislocated joint in 2005. 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 They say that the patient's comfort is the only goal; spoke with them at length and they have good understanding of her condition and prognosis. I advised them that my expectation is that the patient has, at most, hours to live. They noted that they and the rest of the family have seen this coming for some time and appreciate the care and support from nursing and other hospital staff. Social Support: Living at home with family support prior to this admission POLST at Time of Admission Previous POLST?: No Allergy Allergies Reviewed: Yes Medications Current Medications: Current Medications Lactulose 20 gm DAILY PO Last administered on 04/07/17 09:14; Admin Dose 20 GM; Start 04/06/17 at 14:25; Stop 04/07/17 at 10:47; Status DC Hydromorphone HCl 0.5 mg Q4H PRN IVPUSH; Start 04/06/17 at 15:50; Stop 04/07/17 at 12:54; Status DC Gabapentin 300 mg HS PO; Start 04/07/17 at 21:00; Stop 04/07/17 at 21:00; Status DC Lactulose 20 gm BID PO; Start 04/07/17 at 20:30; Stop 04/07/17 at 20:30; Status DC Furosemide 40 mg Q24H IVPUSH; Start 04/08/17 at 02:30; Stop 04/08/17 at 02:30; Status DC Dexamethasone Sodium Phosphate 2 mg DAILY IVPUSH Last administered on 04/08/17 07:55; Admin Dose 2 MG; Start 04/07/17 at 12:45 Lorazepam 1 mg Q1H PRN IVPUSH Last administered on 04/08/17 11:08; Admin Dose 1 MG; Start 04/07/17 at 12:45 Haloperidol Lactate Start with 1 mg, if not effective ... Q1H PRN IVPUSH; Start 04/07/17 at 12:45 Ondansetron HCl Start with 4 mg, if ... Q4H PRN IVPUSH; Start 04/07/17 at 12:45 Atropine Sulfate Start with 2 drops, if ... Q1H PRN PO; Start 04/07/17 at 12:45 Glycopyrrolate Start with 0.2 mg, if ... Q1H PRN IVPUSH; Start 04/07/17 at 12:45 Artificial Tears 1 drop Q1H PRN AFFECT_EYE; Start 04/07/17 at 12:45 Diphenhydramine HCl 25 mg Q4H PRN IVPUSH; Start 04/07/17 at 12:45 Scheduled Calcium Carbonate/Vitamin D3 (Calcium 1,000 + D3 Caplet) 1 Each Tablet 2 EACH PO HS Cholecalciferol (Vitamin D3) (Vitamin D) 1,000 Unit Capsule 1,000 UNIT PO HS Furosemide (Furosemide) 40 Mg Tablet 40 MG PO HS Gabapentin (Gabapentin) 300 Mg Capsule 900 MG PO HS Levothyroxine (Levothyroxine) 100 Mcg Tablet 100 MG PO QAM Metformin (Glucophage) 1,000 Mg Tablet 1,000 MG PO BID Methadone (Methadone) 5 Mg Tablet 5 MG PO BID Nortriptyline (Nortriptyline) 25 Mg Capsule 25 MG PO HS Spironolactone (Spironolactone) 100 Mg Tablet 100 MG PO DAILY Trospium Chloride (Trospium Chloride) 20 Mg Tablet 20 MG PO BID Scheduled PRN Ondansetron (Ondansetron) 8 Mg Tablet 8 MG PO QID PRN PRN For Nausea/Vomiting Prochlorperazine Maleate (Prochlorperazine) 10 Mg Tablet 10 MG PO QID PRN PRN For Nausea oxyCODONE-Acetaminophen 5-325 mg (oxyCODONE-Acetaminophen 5-325 mg) 1 Each Tablet 1-2 TAB PO Q6H PRN PRN For Pain Current Treatments Oxygen: Yes Telemetry: Yes Objective Findings Exam Vital Sign - Last Date Time Temp Pulse Resp B/P Pulse Ox O2 Delivery O2 Flow Rate FiO2 04/07/17 12:19 36.8 112 10 136/71 97 Nasal Cannula 1.00 Intake and Output 04/07/17 04/07/17 04/08/17 Cumulative From/Thru 15:00 23:00 07:00 04/03/17 10:39 - 04/08/17 06:18 Intake Total 650 ml 243 ml 82601 ml Output Total 450 ml 200 ml 4975 ml Balance 200 ml 43 ml 5842 ml Intake Oral 650 ml 4430 ml IV Total 243 ml 6387 ml Output Urine Total 400 ml 200 ml 4325 ml Stool Total 50 ml 650 ml # Voids 1 # Bowel Movements 2 Objective Obese, unresponsive woman lying in bed. Agonal respirations. Respiratory rate variable with Suhail-Ji pattern. Alopecia. Skin cool and dry. Head and neck exam remarkable for facial edema. Lungs with diminished breath sounds, heart sounds distant and regular. Abdomen obese and without apparent tenderness or rigidity. Extremities diffusely puffy. Lab/Diagnostics Lab and Imaging results reviewed in detail in EMR. Time spent Total time 55 minutes; >50% face to face with patient and family, providing counselling regarding plans and recommendations, and in care coordination with her medical teams. Of the above total time, 15 minutes counseling for advanced care planning with the patient's family at bedside Juno Dutta MD Apr 08, 2017 11:33
[2017-04-08] MEDS: Morphine 100 mg/100 mL NS 100 MG in IV Premix 1 EACH IV SCH (13:17)
--- NOTE | 2017-04-08 14:47 | NUR ---
Time of The pt at 1422. Paperwork and phone calls are being completed.
--- NOTE | 2017-04-08 14:50 | NUR ---
Social Work Note: Updating Note Data& Assessment: Pt has passed. Hospice order canceled and Hospice notified. No other needs identified at this time. SW available for any pt family needs if they arise. Plan: Pt has passed. No other needs identified. JASON Flanagan
--- NOTE | 2017-04-08 20:11 | PCM.DC.MEX ---
Discharge Summary Date of Service Apr 08, 2017 Dates of Hospitalization Date of Hospital Admission Apr 03, 2017 at 13:12 Date of Expiration: Apr 08, 2017 Time of Expiration: 14:22 Providers: Admitting Physician: Zackary Braga MD Primary Care Physician: Nopsujatha Attending Physician: Zackary Braga MD Business Consultant: Francisco Block DO Resident Senior: Rogerio Guthrie DO Diagnosis at Time of Complications of triple negative metastatic breast cancer Consultations Palliative, Dr. Dutta GI, Dr. Alcaraz Oncology, Dr. Palacios Nephrology, Dr. Hoover Procedures XRay, CTs & MRIs X-RAY CHEST ONE VIEW, PORTABLE IMPRESSION: 1. Small right-sided pleural effusion with associated atelectasis. 2. Probable enlargement of the heart with moderate vascular congestion. Please correlate clinically to exclude developing pulmonary edema. Dictated by: Won Thornton M.D. on 04/03/2017 at 10:50 US ABDOMEN, LIMITED IMPRESSION: Small amount of ascites present decreased from prior examination. Volume is not sufficient for safe paracentesis. Dictated by: Roland Gomez RRA Interpreted: Chris Randall MD on 04/03/2017 at 12 :19 X-RAY KUB IMPRESSION: Study severely degraded secondary to portable technique and the patient's body habitus. Grossly there is no evidence of bowel obstruction. If there is persistent clinical concern for bowel obstruction recommend abdominal and pelvic CT with contrast. Dictated by: Chris Randall M.D. on 04/03/2017 at 16:04 CT ABDOMEN AND PELVIS WITHOUT CONTRAST ([id number]) IMPRESSION: 1. No definite evidence of bowel obstruction as clinically queried. There is incomplete inclusion of a few anterior bowel loops on the current study due to body habitus and patient positioning. 2. Moderate amount of ascites in the abdomen and pelvis, increased from the prior study. 3. Small to moderate right pleural effusion and trace left effusion with bibasilar compressive atelectasis and consolidation. 4. Heterogeneous appearance of the liver with ill-defined metastatic lesions appear similar to the prior study. Diffuse blastic metastatic disease redemonstrated throughout the visualized osseous structures. 5. Slightly increased pelvocaliectasis in the renal collection systems bilaterally. 6. Splenomegaly again noted. Dictated by: Miakel Cancino M.D. on 04/04/2017 at 22:26 Approved by: Mikael Cancino M.D. on 04/04/2017 at 22:36 ECG 12 Lead Sinus Tachycardia Incomplete Left bundle branch block Cardiac Echo Impression Echocardiogram Report Interpretation Summary Left ventricular systolic function is normal with the ejection fraction grossly estimated to be 70-75%. There are no obvious focal wall motion abnormalities noted but poor endocardial definition reduces the sensitivity for the detection of such. The left ventricular cavity is small and wall thickness is mildly increased. Cannot assess for LVOT obstruction but there is no obvious anterior motion of the mitral valve leaflet. Diastolic function could not be accurately assessed due to unobtainable data. The right ventricle is not well visualized but grossly appears normal in size with probable normal systolic function. Pulmonary artery pressures cannot be estimated because of the lack of a measurable TR jet velocity. The atria are not well visualized. There is no obvious significant valvular heart disease but sensitivity is decreased because of limited images. There is no pericardial effusion. The patient was in sinus tachycardia with heart rates between 124-143 bpm during the exam. Reading Physician:04:52 PM Brief History Camelia Barahona was a 42 year old lady with a past medical history significant for metastatic triple negative breast cancer, diabetes type II, morbid obesity who presented to the [facility] emergency Department by EMS after worsening progressive weakness over the past week. In the emergency department she was found to have leukocytosis, severe hyponatremia, hyperkalemia, hyperuricemia, and lactic acidosis. She was tachypneic, tachycardic and had a blood pressure of 91/59. Chest X-ray revealed pulmonary congestion and pulmonary edema. Based off of her findings, it was suspected she may have tumor lysis syndrome and was admitted to the hospital. Since admission, she struggled with multiple metabolic /electrolyte abnormalities, renal failure, pancytopenia and acute transaminitis. Clinical status deteriorated further over the last several days , and consistent with multiple discussions between patient, her family members and medical care team decision was made to transition to comfort measure on . Hospital Course Camelia Barahona was a 42-year-old lady with a past medical history significant for metastatic triple negative breast cancer refractory to first and second line chemotherapy, diabetes type II, morbid obesity who presented to the [facility] emergency Department by EMS after worsening progressive weakness over the past week. Patient was transitioned to comfort measures only on 04/07/17. A medical problem list outlining her hospital stay is below Comfort measures - - IV Morphine for pain and air hunger. - IV Ativan for anxiety and air hunger. - Haldol PRN for agitation. Triple negative metastatic breast cancer - Dr. Jay with oncology is patient's outpatient oncologist. - Patient has been transitioned to comfort measures only. Acute kidney injury secondary to acute urinary retention - Creatinine 1.79 on admission, with baseline typically between 0.5 and 0.8, currently slightly worse at 1.9 likely secondary both hepatorenal syndrome from liver mets and to abdominal compartment syndrome with intra-abdominal pressures calculated at 22, recent US failed to reveal a pocket big enough to tap - Associated elevated uric acid at 14.4. - Patient has been transitioned to comfort measures only. Acute Hyperkalemia - Potassium on admission 6.4, with repeat potassium to 6.5 prior to the below treatment plan - EKG showed low voltage, patient was given calcium gluconate for cardiac stabilization - Patient has been transitioned to comfort measures only. 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 Acute Lactic acidosis - Lactic acid on admission 5.1, down to 2.2 - Patient has been transitioned to comfort measures only. Acute lower extremity weakness - Review of imaging studies fails to demonstrate a underlying tumor lesion causing nerve compression however given the patient's lower extremity weakness and possible neurogenic bladder the patient will be started on steroids per oncology recommendations - Patient has been transitioned to comfort measures only. Acute hyperuricemia - Possibly secondary to tumor lysis syndrome - A discussion was held with Dr. Palacios who believes that this is possibly a rare but unlikely tumor lysis syndrome in a solid tumor secondary to diffuse extensive tumor burden outgrowing blood supply Acute Leukocytosis, anemia and thrombocytopenia - From previous oncology prog notes: Differential for the patient's neutrophilia includes a leukemoid reaction from underlying infection, myelopthysis process from disease progression within the marrow, secondary myeloid neoplasia from previous chemotherapy exposure (MDS, Acute Leukemia), and finally demargination from prechemotherapy steroids. - The patient is not appearing acutely infectious at this time however given elevated pro calcitonin above 6 cefepime IV 2 g every 8 will be initiated to cover for possible gram-positive gram-negative and pseudomonas given his immunocompromised state Acute elevation in liver enzymes - Likely secondary to liver metastases however significant elevation noted recently, this could possibly be consistent with significant advancement of tumor burden resulting in the above-described tumor lysis Protein malnutrition Hypothyroidism - Dr. Palacios notes that the patient's TSH was significantly elevated when last checked - Patient has been transitioned to comfort measures only. Exam Test 04/03/17 10:45 04/03/17 11:55 04/03/17 12:25 04/03/17 20:30 Blast Cells % 1% (0-0) Lactate Dehydrogenase 895U/L (100-190) Troponin T 0.010ug/L (0.0-0.011) Prothrombin Time 15.5sec (8.1-12.5) Prothromb Time International Ratio 1.44ratio Urine Color Yellow (YELLOW) Urine Appearance Clear (CLEAR,HAZY) Urine pH 5.0 (5.0-8.0) Urine Specific Pine 1.015 (1.003-1.035) Urine Protein Negativemg/dL (NEG,TRACE) Urine Glucose (UA) Negativemg/dL (NEGATIVE) Urine Ketones Negativemg/dL (NEGATIVE) Urine Occult Blood Negative (NEGATIVE) Urine Nitrite Negative (NEGATIVE) Urine Bilirubin Small (NEGATIVE) Urine Ictotest Negative (Negative) Urine Urobilinogen Normalmg/dL (NORMAL) Urine Leukocyte Esterase Trace (NEGATIVE) Urine RBC 0-2/hpf (0-2) Urine WBC 0-5/hpf (0-5) Urine Epithelial Cells Occasional/hpf (NONE-MOD) Urine Crystals None seen (NONE SEEN) Urine Bacteria Few/hpf (NONE-FEW) Urine Hyaline Casts None/lpf (NONE) Urine Granular Casts None seen (NONE SEEN) Urine Waxy Casts None seen (NONE SEEN) Urine Red Blood Cell Casts None seen (NONE SEEN) Urine White Blood Cell Casts None seen (NONE SEEN) Urine Mucus None seen (None Seen) Urine Trichomonas None seen (NONE SEEN) Urine Yeast None (NONE SEEN) Urinalysis Comment None Urine Culture Reflexed Indicated Urine Osmolality 364mOs/kH2O (250-1200) Urine Random Creatinine 109mg/dL (15-278) Urine Random Sodium < 10mEq/L Thyroid Stimulating Hormone (TSH) 21.380uIU/mL (0.450-4.500) Free Thyroxine 1.05ng/dL (0.82-1.77) Hold Roxana Top Tube Received (Received) Test 04/04/17 04:25 04/04/17 10:20 04/04/17 13:00 04/05/17 05:12 Corrected White Blood Count 20.0th/mm3 (3.8-10.1) Phosphorus Level 3.5mg/dL (2.5-4.9) Magnesium Level 1.6mg/dL (1.6-2.6) Procalcitonin 7.42ng/mL (0.00-0.08) Ionized Calcium (Calculated) 2.91mg/dL (3.5-5.2) Calcium (Send out) 6.9mg/dL (8.7-10.2) Parathyroid Hormone Interpretation Comment (.) Total Intact Parathyroid Hormone 416pg/mL (15-65) Direct Bilirubin 0.5mg/dL (0.0-0.3) Test 04/05/17 08:56 04/05/17 13:20 04/05/17 14:23 04/06/17 01:51 Hemoglobin A1c 5.1% (4.8-5.6) Ketones Negative (Negative) Uric Acid 13.3mg/dL (2.6-7.2) Triglycerides Level 242mg/dL (0-149) Cholesterol Level 103mg/dL (100-199) LDL Cholesterol, Calculated 45.600mg/dL (0-99) VLDL Cholesterol 48.400mg/dL HDL Cholesterol 9mg/dL (>39) Cholesterol/HDL Ratio 11.44 (0.0-4.4) Alcohols < 10mg/dL (0-10) Myelocytes % 1% (0-0) Lactic Acid Level 2.2mmol/L (0.4-2.0) Test 04/06/17 08:23 04/06/17 11:20 04/07/17 04:30 Cortisol 5.0ug/dL (.) Ammonia 77ug/dL (18-53) White Blood Count 15.0th/mm3 (3.8-10.1) Red Blood Count 2.44mil/mm3 (3.90-5.20) Hemoglobin 7.6g/dL (12.0-15.6) Hematocrit 24.5% (35.0-46.0) Mean Corpuscular Volume 100.4fL (81-100) Mean Corpuscular Hemoglobin 31.1pg (27.0-35.0) Mean Corpuscular Hemoglobin Concent 31.0% (32.0-37.0) Red Cell Distribution Width 21.1% (12.3-15.4) Platelet Count 20bil/L (150-400) Neutrophils (%) (Auto) 76% (40-74) Lymphocytes (%) (Auto) 4% (14-46) Monocytes (%) (Auto) 2% (4-12) Eosinophils (%) (Auto) 0% (0-5) Basophils (%) (Auto) 0% (0-3) Band Neutrophils % 14% (1-5) Metamyelocytes % 4% (0-0) Nucleated Red Blood Cells 1/100 WBC (0-24) Hematology Comments Sodium Level 123mEq/L (134-144) Potassium Level 5.7mEq/L (3.5-5.2) Chloride Level 87mEq/L (97-108) Carbon Dioxide Level 21mmol/L (18-29) Blood Urea Nitrogen 55mg/dL (6-24) Creatinine 1.80mg/dL (0.57-1.00) Estimat Glomerular Filtration Rate 44mL/min (>59) Glucose Level 230mg/dL (60-99) Osmolality 288 (275-300) Calcium Level 8.1mg/dL (8.5-10.1) Total Bilirubin 1.5mg/dL (0.0-1.2) Aspartate Amino Transf (AST/SGOT) 94U/L (0-50) Alanine Aminotransferase (ALT/SGPT) 32U/L (0-32) Alkaline Phosphatase 381U/L (25-150) Total Protein 6.9g/dL (6.4-8.4) Albumin 3.3g/dL (3.4-5.0) Microbiology Results Item Value Date Time MRSA (PCR) Received 04/03/17 1527 Nose Pending Urine Culture Received 04/03/17 1225 Urine,Random Pending Blood Culture Received 04/03/17 1155 Blood Aerobic Bottle Pending Blood Culture Received 04/03/17 1045 Blood Aerobic And Anaerobic Bottle Pending Attending Statement The patient was seen and examined together with Dr. Block on 04/08/2017 and I agree with the history, exam and plan as outlined in the note above. . copies to: Neil Muniz Malik A DO Apr 08, 2017 20:11 Zackary Braga MD Apr 09, 2017 16:38 Blood Culture Received 04/03/17 1045 Blood Aerobic And Anaerobic Bottle Pending Francisco Block DO Apr 08, 2017 20:11 6.9g/dL (6.4-8.4) Albumin 3.3g/dL (3.4-5.0) Microbiology Results Item Value Date Time MRSA (PCR) Received 04/03/17 1527 Nose Pending Urine Culture Received 04/03/17 1225 Urine,Random Pending Blood Culture Received 04/03/17 1155 Blood Aerobic Bottle Pending Blood Culture Received 04/03/17 1045 Blood Aerobic And Anaerobic Bottle Pending Francisco Block DO Apr 08, 2017 20:11
== END 2017-04-08 14:22 | disposition expired | DRG 682 ==
LOC: EDBD 10:17 → SED 10:17 → EDUNIT# 10:17 → PCC 13:12 → CCU 14:19 → PCC 04-06 08:36
PROVIDERS: ADMIT Internal Medicine; ATTEND Internal Medicine
PROC: 4A033R1 Measurement of Arterial Saturation, Peripheral, Percutaneous Approach (ICD-10-PCS; principal; 2017-04-03)
DX: N17.9 Acute kidney failure, unspecified (principal); K76.7 Hepatorenal syndrome; D61.818 Other pancytopenia; C79.52 Secondary malignant neoplasm of bone marrow; C78.7 Secondary malignant neoplasm of liver and intrahepatic bile duct; C79.51 Secondary malignant neoplasm of bone; E22.2 Syndrome of inappropriate secretion of antidiuretic hormone; Z68.42 Body mass index [BMI] 45.0-49.9, adult; E87.2 Acidosis; C79.81 Secondary malignant neoplasm of breast; K59.03 Drug induced constipation; E88.3 Tumor lysis syndrome; E11.9 Type 2 diabetes mellitus without complications; Z51.5 Encounter for palliative care; E87.5 Hyperkalemia; E66.01 Morbid (severe) obesity due to excess calories; E83.51 Hypocalcemia; R33.9 Retention of urine, unspecified; E03.9 Hypothyroidism, unspecified; Z66 Do not resuscitate; T40.2X5A Adverse effect of other opioids, initial encounter; Z79.84 Long term (current) use of oral hypoglycemic drugs